=== PATIENT | female | born 1965 | race Caucasian/White ===

== ENCOUNTER → 2017-05-06 14:44 | Outpatient (CLI) | payer MEDICAID, SELFPAY ==
--- NOTE | 2017-05-06 14:49 | RAD_ITS ---
STUDY: X-RAY - LEFT KNEE REASON FOR EXAM: Female, 51 years old. Bilateral knee pain. TECHNIQUE: 5 view(s) of the knee. COMPARISON: None. FINDINGS: Normal visualized distal femur. Normal visualized proximal tibia and fibula. Normal proximal tibiofibular articulation. There is mild degenerative arthrosis of the medial femorotibial compartment. Normal lateral femorotibial compartment. Normal patellofemoral articulation. The soft tissue structures are unremarkable. RAD/Knee 4 or More Views IMPRESSION: Degenerative arthrosis. Electronically Signed: Willis Hicks MD at 15:51 EST Tel [phone], Service support ,
--- NOTE | 2017-05-06 14:49 | RAD_ITS ---
STUDY: X-RAY - RIGHT KNEE REASON FOR EXAM: Female, 51 years old. Bilateral knee pain. TECHNIQUE: 4 view(s) of the knee. COMPARISON: None. FINDINGS: Normal visualized distal femur. Normal visualized proximal tibia and fibula. Normal proximal tibiofibular articulation. There is mild degenerative arthrosis of the medial femorotibial compartment. Normal lateral femorotibial compartment. There is mild degenerative arthrosis of the patellofemoral articulation. The soft tissue structures are unremarkable. RAD/Knee 4 or More Views IMPRESSION: Degenerative arthrosis. Electronically Signed: Willis Hicks MD at 15:52 EST Tel [phone], Service support ,
== END ==
PROVIDERS: Family Provider Nurse Practitioner Family; PCP Nurse Practitioner Family
DX: M25.561 Pain in right knee (principal); M25.562 Pain in left knee
CPT/HCPCS: 73564

== ENCOUNTER 2017-05-30 11:53 | Emergency (ER) | payer MEDICAID, SELFPAY ==
[2017-05-30 11:54] VITALS: BP 205/111; PULSE 71; RESP 18; TEMP 36.5; O2SAT 98; BMI 43.5
[2017-05-30 12:01] VITALS: BP 162/101; PULSE 65; RESP 17; O2SAT 96
--- NOTE | 2017-05-30 12:01 | EKG12_ITS ---
Test Reason : CP Blood Pressure : / mmHG Vent. Rate : 061 BPM Atrial Rate : 061 BPM P-R Int : 160 ms QRS Dur : 100 ms QT Int : 448 ms P-R-T Axes : 043 -01 020 degrees QTc Int : 450 ms Normal sinus rhythm Normal ECG Confirmed by KAITLIN FERRARI ([id number]), associate editor AMERICA GUNTER ([id number] on 06/02/2017 1:31:41 PM Referred By: DIANE Confirmed By:KAITLIN FERRARI
--- NOTE | 2017-05-30 12:33 | US_ITS ---
STUDY: ABDOMINAL ULTRASOUND - RIGHT UPPER QUADRANT REASON FOR VISIT: Female, 51 years old. Right upper quadrant pain. TECHNIQUE: Ultrasound evaluation of the right upper quadrant was performed with real-time and static dawson-scale imaging. TECHNICAL QUALITY: Adequate. COMPARISON: None. FINDINGS: Liver: The liver measures 17.7 cm. There is increased echogenicity consistent with fatty infiltration. The bile ducts are within normal limits. There is hepatic color flow. The direction of portal flow is hepatopetal. There is no demonstrated mass lesion. Gallbladder: Normal distended gallbladder. The gallbladder wall measures 3 mm. There is a negative sonographic Mantilla's sign. There is no pericholecystic fluid. There are no gallstones. Common Bile Duct (C.B.D.): The common bile duct measures 4 mm. Pancreas: Normal size of the head, body and tail of the pancreas. There is normal echogenicity of the pancreas. There is no demonstrated pancreatic mass or cyst. Right Kidney: Normal size of the right kidney. The right kidney measures 11.9 x 5.3 x 4.9 cm. Normal renal cortex. The right cortex measures 1.1 cm. There is no demonstrated renal mass or cyst. There is no right hydronephrosis. US/Gallbladder IMPRESSION: Hepatic steatosis. Electronically Signed: Juaquin Webb MD at 14:08 EST , Service support ,
--- NOTE | 2017-05-30 12:34 | ED.VISSUMM ---
- ER Visit Summary Date of Service: 05/30/17 Chief Complaint: Abdominal pain History of Present Illness: The patient is a 51 F presenting with right upper quadrant abdominal pain for the past 2 hours. She has nausea with no vomiting. Denies diarrhea or constipation. Denies urinary complaints. She states occasionally the pain radiates into her chest. She has a history of hypertension and GERD. Physical Examination: Vitals are stable. Patient is afebrile. Alert no acute distress. HEENT exam is unremarkable. Neck is supple. Lungs are clear and equal bilaterally. Heart is regular rate and rhythm. Abdomen is soft right upper quadrant tenderness, no rebound or guarding Extremities are unremarkable. Skin is warm and dry. No focal neurologic deficit. Remainder of exam is unremarkable. Emergency Department Course and Treatment: She was given morphine, Zofran IV. EKG is sinus rhythm rate 61, no acute ischemic changes. CBC is unremarkable. Chemistries normal except for BUN 20, creatinine 1.09. She was given IV fluids. Liver lipase are normal. Gallbladder ultrasound shows hepatic steatosis. She was given a GI cocktail with improvement. She is advised to follow-up with her primary care physician. She is given a prescription for Prevacid. She states she was previously taking this but was switched to Zantac. She states the Prevacid worked better in the past. Advised return to ED for worsening complaints. Disposition: Discharge home Impression: Abdominal pain This note was generated with [employer] dictation software. It may contain incorrect words, spelling, and punctuation that were not noted in review of the chart prior to signing ED Disposition - Plan for ED Patient: Chief Complaint: Abd Pain Referrals: Lety Bryan RAILROAD CAR TRUCK BUILDER-C [Primary Care Provider] -
[2017-05-30 12:50] LABS: Absolute Lymphocyte Count 4.04 X10^3/ul (0.83-4.51); Absolute Neutrophil Count 4.4 X10^3/uL (2.0-7.7); Basophil# 0.03 X10^3/uL; Basophil% 0.3 % (0-1); Eosinophil# 0.12 X10^3/uL; Eosinophils% 1.3 % (0-5); Hematocrit 37.4 % (37-47); Hemoglobin 12.5 g/dl (12.0-15.0); Lymphocyte # 4.04 X10^3/ul (4.0); Lymphocyte % 44.5 % (19-41); Mean Corp Hgb Conc 33.4 g/gl (32-36); Mean Corpuscular Volume 92.8 fL (81-99); Mean Platelet Vol. 10.9 fl (6.2-12.0); Monocyte# 0.49 X10^3/uL; Monocyte% 5.4 % (0-10); Neutrophil # 4.39 X10^3/uL (2.7-7.7); Neutrophil % 48.4 % (47-70); Platelet Count 325 K/mm3 (150-450); RBC Distribution Width CV 12.7 % (11.6-14.6); RBC Distribution Width SD 42.1 fl (35.1-43.9); Red Blood Count 4.03 M/mm3 (4.2-5.4); White Blood Count 9.1 K/mm3 (4.4-11.0)
[2017-05-30 12:55] LABS: POSITIVE COUNT NO; POSITIVE DIFFERENTIAL NO; POSITIVE MORPHOLOGY NO
[2017-05-30 13:05] LABS: AST(SGOT) 22 U/L (15-37); Alanine Aminotransfer ALT/SGPT 37 U/L (13-56); Albumin, Serum 3.9 g/dL (3.2-5.0); Alkaline Phosphatase 112 U/L (45-117); BUN 20 mg/dL (7-18); BUN/Creat Ratio 18.3 RATIO (10-20); Bilirubin, Direct 0.09 mg/dL (0.00-0.30); Calcium,Total 8.8 mg/dL (8.5-10.1); Chloride 103 mmol/L (98-107); Creatinine, Serum 1.09 mg/dL (0.55-1.02); EST Glomerular Filtration Rate 56 mL/min (>60); Est Glom Filt Rate - Afr Amer 68 mL/min (>60); Globulin 3.5 g/dL (2.2-4.2); Glucose 94 mg/dL (74-106); Lipase 174 U/L (73-393); Potassium 3.8 mmol/L (3.5-5.1); Protein, Total 7.4 g/dL (6.4-8.2); Sodium Level 141 mmol/L (136-145)
[2017-05-30 13:06] LABS: Anion Gap 10 (5-15)
[2017-05-30] MEDS: Ondansetron 4 MG/2 ML Vial IV (13:07)
[2017-05-30 14:00] VITALS: BP 152/72; PULSE 59; RESP 20; O2SAT 98
[2017-05-30] MEDS: 0.9% Normal Saline 1,000 ML 999 ML IV (14:03)
--- NOTE | 2017-05-30 15:17 | ED.DEP ---
ED Disposition - Plan for ED Patient: Chief Complaint: Abd Pain Instructions: ED Abdominal Pain Unkn Cause Prescriptions: Lansoprazole [Prevacid] 15 mg PO DAILY #30 capsule Referrals: Lety Bryan RADIO ELECTRICIAN-C [Primary Care Provider] -
[2017-05-30 15:21] VITALS: BP 146/78; PULSE 58; RESP 18; O2SAT 95
== END 2017-05-30 15:33 | disposition home or self-care (01) ==
LOC: ED 12:32
PROVIDERS: Emergency Provider Emergency Medicine; Family Provider Nurse Practitioner Family; PCP Nurse Practitioner Family
DX: R10.11 Right upper quadrant pain (principal); R11.0 Nausea; K76.0 Fatty (change of) liver, not elsewhere classified; I10 Essential (primary) hypertension; K21.9 Gastro-esophageal reflux disease without esophagitis; F32.9 Major depressive disorder, single episode, unspecified; Z90.89 Acquired absence of other organs; Z79.899 Other long term (current) drug therapy
CPT/HCPCS: 76705; 80048; 80076; 83690; 85025; 93005; 96374; 96375; 99283; J7030; J7040; A4216; J2405

== ENCOUNTER → 2017-07-16 12:50 | Outpatient (CLI) | payer MEDICAID, SELFPAY ==
--- NOTE | 2017-07-16 12:55 | BI_ITS ---
MAMMOGRAPHY - UNILATERAL DIAGNOSTIC: LEFT BREAST REASON FOR EXAM: Female, 51 years old. Six-month follow-up following right stereotactic breast biopsy. PERTINENT HISTORY: Prior left stereotactic breast biopsy. TECHNIQUE: Digital unilateral breast ella (3D mammographic acquisition) in the CC and MLO projections. 2-D mediolateral oblique (MLO) and craniocaudad (CC) views of both breasts were obtained. CAD: Full Field Digital Mammography with Computer Added Detection was performed. COMPARISON: Comparison is made with prior study January 15, 2017. FINDINGS: Breast Composition: The breasts are heterogeneously dense, which may obscure small masses. There are no dominant masses or suspicious calcifications. Since prior study, the cluster microcalcification in the upper lateral portion of the left breast at the biopsy. The number of calcifications have decreased. No new mass or clustered calcifications present. No other significant abnormalities are identified. BI/DIAG MAMM W/CAD, UNILAT IMPRESSION: Status post biopsy of the calcifications in the left breast as described. One year follow-up mammogram recommended. (A) ASSESSMENT CATEGORY: BIRADS Category 2: Benign. A letter regarding these results will be sent to the patient by the facility within 30 days. Approximately 10% of breast cancers are not detected by mammography. A normal mammogram should not delay biopsy of a clinically suspicious abnormality. Electronically Signed: Willis Hicks MD at 14:56 EDT Tel [phone], Service support ,
== END ==
PROVIDERS: Family Provider Nurse Practitioner Family; PCP Nurse Practitioner Family; Visit Provider Surgery
DX: R92.8 Other abnormal and inconclusive findings on diagnostic imaging of breast (principal)
CPT/HCPCS: 77061; 77065; G0279

== ENCOUNTER 2017-11-25 09:36 | Emergency (ER) | payer MEDICAID, SELFPAY ==
[2017-11-25 09:37] VITALS: BP 208/107; PULSE 82; RESP 24; TEMP 36.1; O2SAT 98; BMI 43.9
--- NOTE | 2017-11-25 09:41 | ED.RN ---
pt pre reg. moved to room number 3. [facility] called for ekg. triage info completed after pt in room
--- NOTE | 2017-11-25 10:02 | ED.DCSUM_ITS ---
- ER Visit Summary Date of Service: 11/25/17 Chief Complaint: Abdominal pain History of Present Illness: The patient is a 52 F history of hypertension prior appendectomy. Complaining of right upper quadrant abdominal pain for the last half an hour that awoke her from sleep. Associated nausea vomiting ?1. No fever. No dysuria. Postmenopausal no longer has periods. Patient had episode like this before was evaluated and had an ultrasound was negative. She denies any abdominal trauma. Physical Examination: Middle-aged female complaining of right upper quadrant abdominal pain. Vital signs are stable and afebrile. She does not look septic or toxic. Blood pressure 208/107. HEENT exam unremarkable. Neck nontender. Lungs clear to auscultation bilaterally. Heart regular rate and rhythm no murmur. Abdomen is soft. Right upper quadrant tenderness. No Mantilla sign. Normal bowel sounds. No hernias or masses. Right lower quadrant unremarkable. No pulsatile masses. No signs of obstruction. No distention. Moving all 4 extremities. Neurovascularly intact. Neurologic exam is awake and alert with no focal motor deficits. Test Results: EKG sinus rhythm rate of 71 no acute abnormality. CBC normal. White count 8. Normal hemoglobin. BMP normal. Normal gap and creatinine. Liver enzymes normal. Lipase normal. Emergency Department Course and Treatment: Patient treated with IV morphine and Zofran. She reportedly has a Toradol allergy. Treatment Plan: Repeat exam patient doing well at 1105. Nausea resolved. Abdomen benign and nontender. I do not feel she needs any imaging at this time. She is previously had a negative ultrasound of the right upper quadrant. She will be discharged home to follow-up with the start since clinic. Disposition: Discharge Impression: Acute abdominal pain of uncertain etiology This note was generated with [employer] dictation software. It may contain incorrect words, spelling, and punctuation that were not noted in review of the chart prior to signing ED Disposition - Plan for ED Patient: Chief Complaint: Abd Pain Referrals: Lety Bryan, AUTO BODY REPAIR TECHNICIAN-C [NON-STAFF] -
[2017-11-25 10:18] LABS: Absolute Lymphocyte Count 4.11 X10^3/ul (0.83-4.51); Absolute Neutrophil Count 4.1 X10^3/uL (2.0-7.7); Basophil# 0.03 X10^3/uL; Basophil% 0.3 % (0-1); Eosinophils% 1.1 % (0-5); Hemoglobin 12.5 g/dl (12.0-15.0); Lymphocyte # 4.11 X10^3/ul (4.0); Lymphocyte % 46.5 % (19-41); Mean Corp Hgb Conc 33.8 g/gl (32-36); Mean Corpuscular Hgb 31.4 pg (27.0-32.0); Mean Platelet Vol. 10.4 fl (6.2-12.0); Monocyte% 5.7 % (0-10); Neutrophil # 4.09 X10^3/uL (2.7-7.7); Neutrophil % 46.3 % (47-70); POSITIVE COUNT NO; POSITIVE DIFFERENTIAL NO; POSITIVE MORPHOLOGY NO; Platelet Count 311 K/mm3 (150-450); RBC Distribution Width CV 12.7 % (11.6-14.6); RBC Distribution Width SD 42.1 fl (35.1-43.9); Red Blood Count 3.98 M/mm3 (4.2-5.4); White Blood Count 8.8 K/mm3 (4.4-11.0)
[2017-11-25 10:34] LABS: AST(SGOT) 29 U/L (15-37); Alanine Aminotransfer ALT/SGPT 46 U/L (13-56); Albumin, Serum 3.3 g/dL (3.2-5.0); Alkaline Phosphatase 113 U/L (45-117); Anion Gap 7 (5-15); BUN 9 mg/dL (7-18); BUN/Creat Ratio 9.6 RATIO (10-20); Bilirubin, Direct 0.12 mg/dL (0.00-0.30); Calcium,Total 8.6 mg/dL (8.5-10.1); Chloride 108 mmol/L (98-107); Creatinine, Serum 0.93 mg/dL (0.55-1.02); EST Glomerular Filtration Rate 67 mL/min (>60); Est Glom Filt Rate - Afr Amer 81 mL/min (>60); Globulin 3.8 g/dL (2.2-4.2); Glucose 102 mg/dL (74-106); Lipase 161 U/L (73-393); Potassium 3.5 mmol/L (3.5-5.1); Protein, Total 7.1 g/dL (6.4-8.2); Sodium Level 143 mmol/L (136-145)
[2017-11-25] MEDS: Ondansetron 4 MG/2 ML Vial IV (10:43)
[2017-11-25] MEDS: morphine 8 MG/ML Syringe 6 MG IV (10:43)
--- NOTE | 2017-11-25 11:06 | ED.DEP ---
ED Disposition - Plan for ED Patient: Disposition: Home or Assisted Living Chief Complaint: Abd Pain Instructions: ED Abdominal Pain Unkn Cause Prescriptions: Ondansetron [Zofran Odt] 4 mg PO Q4H PRN PRN #10 tab.rapdis PRN Reason: Nausea Referrals: Lety Bryan, CONSTRUCTION QUALITY CONTROL MANAGER-C [NON-STAFF] - 1 Week if not improving Additional Instructions: Zofran as needed for nausea.
[2017-11-25 11:19] VITALS: BP 164/94; PULSE 64; RESP 19; O2SAT 99
== END 2017-11-25 11:20 | disposition home or self-care (01) ==
PROVIDERS: Emergency Provider Emergency Medicine; Family Provider Nurse Practitioner Family; PCP Nurse Practitioner Family
DX: R10.11 Right upper quadrant pain (principal); I10 Essential (primary) hypertension; R11.2 Nausea with vomiting, unspecified; J45.909 Unspecified asthma, uncomplicated; Z78.0 Asymptomatic menopausal state; Z79.899 Other long term (current) drug therapy
CPT/HCPCS: 80048; 80076; 83690; 85025; 93005; 96374; 96375; 99285; A4216; J2405

== ENCOUNTER → 2018-02-03 14:21 | Outpatient (CLI) | payer MEDICAID, SELFPAY ==
--- NOTE | 2018-02-03 14:23 | US_ITS ---
STUDY: THYROID ULTRASOUND REASON FOR EXAM: Female, 52 years old. Hypothyroidism TECHNIQUE: Ultrasound evaluation of the thyroid was performed with real-time and static dawson-scale imaging. COMPARISON: None. FINDINGS: RIGHT LOBE: The right lobe of the thyroid gland measures 4.2 x 1.4 x 1.5 cm. There is a homogeneous echotexture. There are no demonstrated solid, cystic or complex lesions. LEFT LOBE: The left lobe of the thyroid gland measures 3.8 x 1.4 x 1.3 cm. There is a homogeneous echotexture. There is a simple 2 mm cyst. ISTHMUS: The isthmus measures 0.5 cm. The regional lymph nodes are normal. US/Thyroid IMPRESSION: Normal sized homogeneous thyroid gland with simple 2 mm cyst in the left lobe. No suspicious solid nodules or inflammation. Electronically Signed: Juaquin José MD at 15:24 EDT , Service support ,
== END ==
PROVIDERS: Family Provider Nurse Practitioner Family; PCP Nurse Practitioner Family
DX: E03.9 Hypothyroidism, unspecified (principal)
CPT/HCPCS: 76536

== ENCOUNTER → 2018-03-02 15:45 | Outpatient (CLI) | payer MEDICAID, SELFPAY ==
--- NOTE | 2018-03-02 15:46 | BI_ITS ---
MAMMOGRAPHY - BILATERAL SCREENING REASON FOR EXAM: Female, 52 years old. Routine annual screening examination. PERTINENT HISTORY: Aunts with breast cancer. TECHNIQUE: Digital bilateral breast ella (3D mammographic acquisition) in the CC and MLO projections. 2-D mediolateral oblique (MLO) and craniocaudad (CC) views of both breasts were obtained. CAD: Full Field Digital Mammography with Computer Added Detection was performed. COMPARISON: Comparison is made with prior study dated July 16, 2017 and January 15, 2017. FINDINGS: Breast Composition: The breasts are heterogeneously dense, which may obscure small masses. There are no dominant masses or suspicious calcifications. Stable small bilateral axillary lymph nodes. No other significant abnormalities are identified. There has been no significant change since the prior study. BI/SCREENING MAMM (CAD), BILAT IMPRESSION: Stable bilateral screening mammogram. Yearly follow-up mammogram recommended. (A) ASSESSMENT CATEGORY: BIRADS Category 2: Benign. A letter regarding these results will be sent to the patient by the facility within 30 days. Approximately 10% of breast cancers are not detected by mammography. A normal mammogram should not delay biopsy of a clinically suspicious abnormality. [id number] Electronically Signed: Willis Hicks MD at 8:17 EST Tel [phone], Service support ,
--- OUTSIDE RECORDS SUMMARY | 2018-04-28 08:44 | XMS RPT_ITS ---
:1965 Author Organization [facility] Care Team Providers Name Role Phone CLINIC, [facility] Attending Unavailable Ni Sharma Referring Unavailable Lety Bryan TECHNICAL BUSINESS ANALYST-C Primary Care Unavailable Lety Bryan TECHNICAL BUSINESS ANALYST-C Primary Care Unavailable Qian Rothman Attending Unavailable Louie Wen Attending Unavailable Louie Wen Referring Unavailable Lety Bryan TECHNICAL BUSINESS ANALYST-C Primary Care Unavailable Abelardo Wakefield Attending Unavailable Ni Sharma Primary Care Unavailable CLINIC, [facility] Attending Unavailable CLIN[facility], [facility] Referring Unavailable Ni Sharma Primary Care Unavailable CLIN[facility], [facility] Attending Unavailable Ni Sharma Referring Unavailable Ni Sharma Primary Care Unavailable Louie Wen Attending Unavailable Lety Bryan TECHNICAL BUSINESS ANALYST-C Referring Unavailable Lety Bryan TECHNICAL BUSINESS ANALYST-C Primary Care Unavailable PROBLEMS PROBLEMS DATE TYPE CONDITION / CODE ATTENDING STATUS SOURCE 05/06/2017 Unknown M25.561 - Pain CLINICJULIO in right knee / [facility] M25.561(ICD-10) Hospital Repository 03/12/2017 Unknown 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 / Community K63.5(ICD-10) Hospital Repository PROCEDURES PROCEDURES No Procedure Records FoundRESULTS RESULTS SCREENING MAMM (CAD), Observed: 03/02/2018 Status: F Source: LISA BILAT 3:47 PM [facility] REPOSITORY [facility] Imaging Services [address] [place] [address] SCREENING MAMM (CAD), BILAT MR#: [id number] Acct: [id number] Name: JOSUE WEINSTEIN Rep #: [id number] : 1965 F 52 From: Willis Hicks MD PCP: Ni Sharma Status: REG CLI Study: SCREENING MAMM (CAD), BILAT Date of Exam: 03/02/18 Exam# [id number] [facility] Dr[facility] - BILATERAL SCREENING REASON FOR EXAM: Female, 52 years old. Routine annual screening examination. PERTINENT HISTORY: Aunts with breast cancer. TECHNIQUE: Digital bilateral breast ella (3D mammographic acquisition) in the CC and MLO projections. 2-D mediolateral oblique (MLO) and craniocaudad (CC) views of both breasts were obtained. CAD: Full Field Digital Mammography with Computer Added Detection was performed. COMPARISON: Comparison is made with prior study dated July 16, 2017 and January 15, 2017. FINDINGS: Breast Composition: The breasts are heterogeneously dense, which may obscure small masses. There are no dominant masses or suspicious calcifications. Stable small bilateral axillary lymph nodes. No other significant abnormalities are identified. There has been no significant change since the prior study. BI/SCREENING MAMM (CAD), BILAT IMPRESSION: Stable bilateral screening mammogram. Yearly follow-up mammogram recommended. (A) ASSESSMENT CATEGORY: BIRADS Category 2: Benign. A letter regarding these results will be sent to the patient by the facility within 30 days. Approximately 10% of breast cancers are not detected by mammography. A normal mammogram should not delay biopsy of a clinically suspicious abnormality. [id number] Electronically Signed: Willis Hicks MD at 8:17 EST Tel [phone], Service support , CC: Ni SIU; [facility] Fashion Consultant: Signed THYROID Observed: 02/03/2018 Status: F Source: THAYER 2:23 PM [facility] REPOSITORY [facility] Imaging Services [address] [place] [address] Thyroid MR#: [id number] Acct: [id number] Name: JOSUE WEINSTEIN Rep #: [id number] : 1965 F 52 From: Nando José MD PCP: Ni Sharma Status: REG CLI Study: Thyroid Date of Exam: 02/03/18 Exam# [id number] [facility]ing Dr[facility] STUDY: THYROID ULTRASOUND REASON FOR EXAM: Female, 52 years old. Hypothyroidism TECHNIQUE: Ultrasound evaluation of the thyroid was performed with real-time and static dawson-scale imaging. COMPARISON: None. FINDINGS: RIGHT LOBE: The right lobe of the thyroid gland measures 4.2 x 1.4 x 1.5 cm. There is a homogeneous echotexture. There are no demonstrated solid, cystic or complex lesions. LEFT LOBE: The left lobe of the thyroid gland measures 3.8 x 1.4 x 1.3 cm. There is a homogeneous echotexture. There is a simple 2 mm cyst. ISTHMUS: The isthmus measures 0.5 cm. The regional lymph nodes are normal. US/Thyroid IMPRESSION: Normal sized homogeneous thyroid gland with simple 2 mm cyst in the left lobe. No suspicious solid nodules or inflammation. Electronically Signed: Juaquin José MD at 15:24 EDT , Service support , CC: Ni SIU; [facility] Fashion Consultant: Signed 12 LEAD ELECTROCARDIOGRAM Observed: 11/27/2017 Status: F Source: THAYER 1:43 PM [facility] REPOSITORY [facility] Cardiovascular Services [address] [place] [address] 12 Lead EKG 11/25/17 0944 MR#: [id number] Acct: [id number] Name: JOSUE WEINSTEIN Rep #: [id number] : 1965 52 From: Joel Ku MD Attending Dr: Status: DEP ER Ordering Dr: Abelardo Wakefield MD Date: 11/25/17 Location: ED Sex: F C Admitted: Test Reason : Blood Pressure : / mmHG Vent. Rate : 071 BPM Atrial Rate : 071 BPM P-R Int : 184 ms QRS Dur : 094 ms QT Int : 434 ms P-R-T Axes : 036 -14 012 degrees QTc Int : 471 ms Normal sinus rhythm Normal ECG Confirmed by JOEL KU MD ([id number]), copy editor AMERICA GUNTER ([id number]) on 11/27/2017 1:42:45 PM Referred By: JOHN Confirmed By:JOEL KU MD 11/27/17 1342 Date Joel Ku MD CC: Abelardo Wakefield MD; Ni SIU Signed EMERGENCY DEPARTMENT Observed: 11/25/2017 Status: F Source: THAYER SUMMARY 12:11 PM [facility] REPOSITORY [facility] Medical Records Department [address] [place] [address] Emergency Department Summary 11/25/17 1000 MR#: [id number] Acct: [id number] Name: JOSUE WEINSTEIN Rep #: [id number] : 1965 52 From: Abelardo Wakefield MD PCP: Ni Sharma Status: DEP ER - ER Visit Summary Date of Service: 11/25/17 Chief Complaint: Abdominal pain History of Present Illness: The patient is a 52 F history of hypertension prior appendectomy. Complaining of right upper quadrant abdominal pain for the last half an hour that awoke her from sleep. Associated nausea vomiting 1. No fever. No dysuria. Postmenopausal no longer has periods. Patient had episode like this before was evaluated and had an ultrasound was negative. She denies any abdominal trauma. Physical Examination: Middle-aged female complaining of right upper quadrant abdominal pain. Vital signs are stable and afebrile. She does not look septic or toxic. Blood pressure 208/107. HEENT exam unremarkable. Neck nontender. Lungs clear to auscultation bilaterally. Heart regular rate and rhythm no murmur. Abdomen is soft. Right upper quadrant tenderness. No Mantilla sign. Normal bowel sounds. No hernias or masses. Right lower quadrant unremarkable. No pulsatile masses. No signs of obstruction. No distention. Moving all 4 extremities. Neurovascularly intact. Neurologic exam is awake and alert with no focal motor deficits. Test Results: EKG sinus rhythm rate of 71 no acute abnormality. CBC normal. White count 8. Normal hemoglobin. BMP normal. Normal gap and creatinine. Liver enzymes normal. Lipase normal. Emergency Department Course and Treatment: Patient treated with IV morphine and Zofran. She reportedly has a Toradol allergy. Treatment Plan: Repeat exam patient doing well at 1105. Nausea resolved. Abdomen benign and nontender. I do not feel she needs any imaging at this time. She is previously had a negative ultrasound of the right upper quadrant. She will be discharged home to follow-up with the start since clinic. Disposition: Discharge Impression: Acute abdominal pain of uncertain etiology This note was generated with Eight19 dictation software. It may contain incorrect words, spelling, and punctuation that were not noted in review of the chart prior to signing ED Disposition - Plan for ED Patient: Chief Complaint: Abd Pain Referrals: Lety Bryan, TECHNICAL BUSINESS ANALYST-C [NON-STAFF] - What to do if you have Problems For any increased pain, shortness of breath, bleeding, nausea or vomiting, chest pain, or any unexpected problems, contact your Primary Care Provider. Call [facility] ([phone]) or report to the closest Emergency Room. Call 911 if necessary. 11/25/17 1211 <Electronically signed by Abelardo Wakefield MD> Date Abelardo Wakefield MD Cosigner Signature (If Indicated): Date CC: Ni SIU DISCHARGE INSTRUCTION Observed: 11/25/2017 Status: F Source: LISA 12:11 PM [facility] REPOSITORY [facility] Medical Records Department [address] [place] [address] Discharge Instruction 11/25/17 1106 MR#: [id number] Acct: [id number] Name: JOSUE WEINSTEIN Rep #: [id number] : 1965 52 From: Abelardo Wakefield MD PCP: Ni Sharma Status: [facility] ER ED Disposition - Plan for ED Patient: Disposition: Home or Assisted Living Chief Complaint: Abd Pain Instructions: ED Abdominal Pain Unkn Cause Prescriptions: Ondansetron [Zofran Odt] 4 mg PO Q4H PRN PRN #10 tab.rapdis PRN Reason: Nausea Referrals: Lety Bryan TECHNICAL BUSINESS ANALYST-C [NON-STAFF] - 1 Week if not improving Additional Instructions: Zofran as needed for nausea. What to do if you have Problems For any increased pain, shortness of breath, bleeding, nausea or vomiting, chest pain, or any unexpected problems, contact your Primary Care Provider. Call [facility] ([phone]) or report to the closest Emergency Room. Call 911 if necessary. 11/25/17 1211 <Electronically signed by Abelardo Wakefield MD> Date Abelardo Wakefield MD Cosigner Signature (If Indicated): Date CC: Ni SIU CBC W/DIFF, AUTOMATED Collected: 11/25/2017 Status: F Source: LISA 10:10 AM [facility] REPOSITORY TYPE CODE TESTS RESULT OUT OF RANGE REFERENCE UNITS LAB L100.1000 4.4-11.0 K/mm3 Normal WBC 8.8 LAB L100.1200 4.2-5.4 M/mm3 Low RBC 3.98 LAB L100.1300 12.0-15.0 g/dl Normal HGB 12.5 LAB L100.1400 37-47 % Normal HCT 37.0 LAB L100.1500 81-99 fL Normal MCV 93.0 LAB L100.1600 27.0-32.0 pg Normal MCH 31.4 LAB L100.1700 32-36 g/gl Normal MCHC 33.8 LAB L100.1810 11.6-14.6 % Normal RDW CV 12.7 LAB L100.1820 35.1-43.9 fl Normal RDW SD 42.1 LAB L100.1900 150-450 K/mm3 Normal PLT 311 LAB L100.2000 6.2-12.0 fl Normal MPV 10.4 LAB L100.2100 47-70 % Low NEUT% 46.3 LAB L100.2200 19-41 % High LY% 46.5 LAB L100.2300 0-10 % Normal MONO% 5.7 LAB L100.2400 0-5 % Normal EO% 1.1 LAB L100.2500 0-1 % Normal BASO% 0.3 LAB L100.2550 0.0-0.9 % Normal IM GRAN % 0.100 Result Comment: IG% - Immature Granulocytes (promyelocytes, myelocytes and metamyelocytes) > 1% indicates that a LEFT SHIFT is Present. LAB L100.2620 2.0-7.7 X10 3/uL Normal Absolute Neut 4.1 LAB L100.2720 0.83-4.51 X10 3/ul Normal Absolute Lymph 4.11 Performed By: #### L100.0100 #### [facility] [address] [place], [address] BASIC METABOLIC Collected: 11/25/2017 Status: F Source: LISA PROFILE (BMP) 10:10 AM [facility] REPOSITORY TYPE CODE TESTS RESULT OUT OF RANGE REFERENCE UNITS LAB L501.0100 74-106 mg/dL Normal GLU 102 Result Comment: Fasting Glucose result from 100 to 125 mg/dL suggests IMPAIRED HOMEOSTASIS per A.D.A. criteria. Please note revised GLUCOSE reference range effective 2017. LAB L501.1000 7-18 mg/dL Normal BUN 9 LAB L501.1100 0.55-1.02 mg/dL Normal CREAT,SERUM 0.93 Result Comment: The validity of the calculated GFR AND GFRAA in patients over 70 years has not been determined. Clinical correlation is essential. LAB L501.1110 >60 mL/min Normal EST GFR 67 Result Comment: Non- GFR Calc LAB L501.1115 >60 mL/min Normal EST GFR - AA 81 Result Comment: GFR Calc LAB L501.1255 ml/min Normal Estimated CRCL 67.00 LAB L501.1300 10-20 RATIO Low BUN/CRE 9.6 LAB L501.2200 8.5-10 mg/dL Normal .1 CA 8.6 LAB L501.5300 136-14 mmol/L Normal 5 NA 143 LAB L501.5600 3.5-5. mmol/L Normal 1 K 3.5 LAB L501.5900 98-107 mmol/L High CL 108 LAB L501.6100 21.0-3 mmol/L Normal 2.0 CO2 28.0 LAB L501.6200 5-15 Normal GAP 7 Performed By: #### L500.2500, L500.3400, L501.2450 #### [facility] [address] [place], [place], [address] LIVER PROFILE Collected: 11/25/2017 Status: F Source: THAYER 10:10 AM [facility] REPOSITORY TYPE CODE TESTS RESULT OUT OF RANGE REFERENCE UNITS LAB L501.1500 6.4-8.2 g/dL Normal T PROT 7.1 LAB L501.1800 3.2-5.0 g/dL Normal ALB 3.3 LAB L501.1950 2.2-4.2 g/dL Normal GLOB 3.8 LAB L501.4100 15-37 U/L Normal AST 29 LAB L501.4305 45-117 U/L Normal ALK P 113 LAB L501.4405 13-56 U/L Normal ALT 46 LAB L501.4600 0.20-1.00 mg/dL Normal T BILI 0.30 LAB L501.4700 0.00-0.30 mg/dL Normal D BILI 0.12 Performed By: #### L500.2500, L500.3400, L501.2450 #### [facility] [address] [place], [address] LIPASE Collected: 11/25/2017 Status: F Source: THAYER 10:10 AM [facility] REPOSITORY TYPE CODE TESTS RESULT OUT OF RANGE REFERENCE UNITS LAB L501.2450 73-393 U/L Normal LIPASE 161 Performed By: #### L500.2500, L500.3400, L501.2450 #### [facility] [address] [place], [address] DIAG MAMM W/CAD, Observed: 07/16/2017 Status: F Source: THAYER UNIL 12:58 PM [facility] REPOSITORY [facility] Imaging Services [address] [place] [address] DIAG MAMM W/CAD, UNILAT MR#: [id number] Acct: [id number] Name: JOSUE WEINSTEIN Rep #: [id number] : 1965 F 51 From: Willis Hicks MD PCP: Lety Bryan TECHNICAL BUSINESS ANALYSTYobanyC Status: REG CLI Study: DIAG MAMM W/CAD, UNILAT Date of Exam: 07/16/17 Exam# [id number] Ordering Dr: Louie Wen MD MAMMOGRAPHY - UNILATERAL DIAGNOSTIC: LEFT BREAST REASON FOR EXAM: Female, 51 years old. Six-month follow- up following right stereotactic breast biopsy. PERTINENT HISTORY: Prior left stereotactic breast biopsy. TECHNIQUE: Digital unilateral breast ella (3D mammographic acquisition) in the CC and MLO projections. 2-D mediolateral oblique (MLO) and craniocaudad (CC) views of both breasts were obtained. CAD: Full Field Digital Mammography with Computer Added Detection was performed. COMPARISON: Comparison is made with prior study January 15, 2017. FINDINGS: Breast Composition: The breasts are heterogeneously dense, which may obscure small masses. There are no dominant masses or suspicious calcifications. Since prior study, the cluster microcalcification in the upper lateral portion of the left breast at the biopsy. The number of calcifications have decreased. No new mass or clustered calcifications present. No other significant abnormalities are identified. BI/DIAG MAMM W/CAD, UNILAT IMPRESSION: Status post biopsy of the calcifications in the left breast as described. One year follow-up mammogram recommended. (A) ASSESSMENT CATEGORY: BIRADS Category 2: Benign. A letter regarding these results will be sent to the patient by the facility within 30 days. Approximately 10% of breast cancers are not detected by mammography. A normal mammogram should not delay biopsy of a clinically suspicious abnormality. Electronically Signed: Willis Hicks MD at 14:56 EDT Tel [phone], Service support , CC: Lety Bryan; Louie Wen MD Fashion Consultant: Signed 12 LEAD ELECTROCARDIOGRAM Observed: 06/02/2017 Status: F Source: THAYER 1:31 PM [facility] REPOSITORY [facility] Cardiovascular Services [address] [place] [address] 12 Lead EKG 05/30/17 1201 MR#: [id number] Acct: [id number] Name: JOSUE WEINSTEIN Rep #: [id number] : 1965 51 From: Louie Ferrari MD Attending Dr: Status: [facility] ER Ordering Dr: Qian Rothman MD Date: 05/30/17 Location: ED Sex: F C Admitted: Test Reason : CP Blood Pressure : / mmHG Vent. Rate : 061 BPM Atrial Rate : 061 BPM P-R Int : 160 ms QRS Dur : 100 ms QT Int : 448 ms P-R-T Axes : 043 -01 020 degrees QTc Int : 450 ms Normal sinus rhythm Normal ECG Confirmed by LOUIE FERRARI ([id number]), copy editor AMERICA GUNTER ([id number]) on 06/02/2017 1:31:41 PM Referred By: DIANE Confirmed By:LOUIE FERRARI 06/02/17 1331 Date Louie Ferrari MD CC: Lety Bryan; Qian Rothman MD Signed DISCHARGE INSTRUCTION Observed: 05/30/2017 Status: F Source: THAYER 3:19 PM [facility] REPOSITORY [facility] Medical Records Department [address] [place] [address] Discharge Instruction 05/30/17 1517 MR#: [id number] Acct: [id number] Name: JOSUE WEINSTEIN Rep #: [id number] : 1965 51 From: Qian Rothman MD PCP: Lety Bryan Status: REG ER ED Disposition - Plan for ED Patient: Chief Complaint: Abd Pain Instructions: ED Abdominal Pain Unkn Cause Prescriptions: Lansoprazole [Prevacid] 15 mg PO DAILY #30 capsule Referrals: Lety Bryan NP-C [Primary Care Provider] - What to do if you have Problems For any increased pain, shortness of breath, bleeding, nausea or vomiting, chest pain, or any unexpected problems, contact your Primary Care Provider. Call [facility] ([phone]) or report to the closest Emergency Room. Call 911 if necessary. 05/30/17 9609 <Electronically signed by Qian Rothman MD> Date Qian Rothman MD Cosigner Signature (If Indicated): Date CC: Lety Bryan EMERGENCY DEPARTMENT Observed: 05/30/2017 Status: F Source: THAYER SUMMARY 3:17 PM [facility] REPOSITORY [facility] Medical Records Department [address] [place] [address] Emergency Department Summary 05/30/17 1234 MR#: [id number] Acct: [id number] Name: JOSUE WEINSTEIN Rep #: [id number] : 1965 51 From: Qian Rothman MD PCP: Lety Bryan Status: REG ER - ER Visit Summary Date of Service: 05/30/17 Chief Complaint: Abdominal pain History of Present Illness: The patient is a 51 F presenting with right upper quadrant abdominal pain for the past 2 hours. She has nausea with no vomiting. Denies diarrhea or constipation. Denies urinary complaints. She states occasionally the pain radiates into her chest. She has a history of hypertension and GERD. Physical Examination: Vitals are stable. Patient is afebrile. Alert no acute distress. HEENT exam is unremarkable. Neck is supple. Lungs are clear and equal bilaterally. Heart is regular rate and rhythm. Abdomen is soft right upper quadrant tenderness, no rebound or guarding Extremities are unremarkable. Skin is warm and dry. No focal neurologic deficit. Remainder of exam is unremarkable. Emergency Department Course and Treatment: She was given morphine, Zofran IV. EKG is sinus rhythm rate 61, no acute ischemic changes. CBC is unremarkable. Chemistries normal except for BUN 20, creatinine 1.09. She was given IV fluids. Liver lipase are normal. Gallbladder ultrasound shows hepatic steatosis. She was given a GI cocktail with improvement. She is advised to follow-up with her primary care physician. She is given a prescription for Prevacid. She states she was previously taking this but was switched to Zantac. She states the Prevacid worked better in the past. Advised return to ED for worsening complaints. Disposition: Discharge home Impression: Abdominal pain This note was generated with Eight19 dictation software. It may contain incorrect words, spelling, and punctuation that were not noted in review of the chart prior to signing ED Disposition - Plan for ED Patient: Chief Complaint: Abd Pain Referrals: Lety Bryan NP-C [Primary Care Provider] - What to do if you have Problems For any increased pain, shortness of breath, bleeding, nausea or vomiting, chest pain, or any unexpected problems, contact your Primary Care Provider. Call [facility] ([phone]) or report to the closest Emergency Room. Call 911 if necessary. 05/30/17 1517 <Electronically signed by Qian Rothman MD> Date Qian Rothman MD Cosigner Signature (If Indicated): Date CC: Lety Bryan GALLBLADDER Observed: 05/30/2017 Status: F Source: THAYER 12:34 PM [facility] REPOSITORY [facility] Imaging Services [address] [place] [address] Gallbladder MR#: [id number] Acct: [id number] Name: JOSUE WEINSTEIN Rep #: [id number] : 1965 F 51 From: Nando Webb MD PCP: Lety Bryan Status: REG ER Study: Gallbladder Date of Exam: 05/30/17 Exam# [id number] Ordering Dr: Qian Rothman MD STUDY: ABDOMINAL ULTRASOUND - RIGHT UPPER QUADRANT REASON FOR VISIT: Female, 51 years old. Right upper quadrant pain. TECHNIQUE: Ultrasound evaluation of the right upper quadrant was performed with real-time and static dawson-scale imaging. TECHNICAL QUALITY: Adequate. COMPARISON: None. FINDINGS: Liver: The liver measures 17.7 cm. There is increased echogenicity consistent with fatty infiltration. The bile ducts are within normal limits. There is hepatic color flow. The direction of portal flow is hepatopetal. There is no demonstrated mass lesion. Gallbladder: Normal distended gallbladder. The gallbladder wall measures 3 mm. There is a negative sonographic Mantilla's sign. There is no pericholecystic fluid. There are no gallstones. Common Bile Duct (C.B.D.): The common bile duct measures 4 mm. Pancreas: Normal size of the head, body and tail of the pancreas. There is normal echogenicity of the pancreas. There is no demonstrated pancreatic mass or cyst. Right Kidney: Normal size of the right kidney. The right kidney measures 11.9 x 5.3 x 4.9 cm. Normal renal cortex. The right cortex measures 1.1 cm. There is no demonstrated renal mass or cyst. There is no right hydronephrosis. US/Gallbladder IMPRESSION: Hepatic steatosis. Electronically Signed: Juaquni Webb MD at 14:08 EST , Service support , CC: Lety Bryan; Qian Rothman MD Fashion Consultant: Signed CBC W/DIFF, AUTOMATED Collected: 05/30/2017 Status: F Source: LISA 12:10 PM [facility] REPOSITORY TYPE CODE TESTS RESULT OUT OF RANGE REFERENCE UNITS LAB L100.1000 4.4-11.0 K/mm3 Normal WBC 9.1 LAB L100.1200 4.2-5.4 M/mm3 Low RBC 4.03 LAB L100.1300 12.0-15.0 g/dl Normal HGB 12.5 LAB L100.1400 37-47 % Normal HCT 37.4 LAB L100.1500 81-99 fL Normal MCV 92.8 LAB L100.1600 27.0-32.0 pg Normal MCH 31.0 LAB L100.1700 32-36 g/gl Normal MCHC 33.4 LAB L100.1810 11.6-14.6 % Normal RDW CV 12.7 LAB L100.1820 35.1-43.9 fl Normal RDW SD 42.1 LAB L100.1900 150-450 K/mm3 Normal PLT 325 LAB L100.2000 6.2-12.0 fl Normal MPV 10.9 LAB L100.2100 47-70 % Normal NEUT% 48.4 LAB L100.2200 19-41 % High LY% 44.5 LAB L100.2300 0-10 % Normal MONO% 5.4 LAB L100.2400 0-5 % Normal EO% 1.3 LAB L100.2500 0-1 % Normal BASO% 0.3 LAB L100.2550 0.0-0.9 % Normal IM GRAN % 0.100 Result Comment: IG% - Immature Granulocytes (promyelocytes, myelocytes and metamyelocytes) > 1% indicates that a LEFT SHIFT is Present. LAB L100.2620 2.0-7.7 X10 3/uL Normal Absolute Neut 4.4 LAB L100.2720 0.83-4.51 X10 3/ul Normal Absolute Lymph 4.04 Performed By: #### L100.0100 #### [facility] [address] [place], [address] BASIC METABOLIC Collected: 05/30/2017 Status: F Source: THAYER PROFILE ([facility]) 12:10 PM [facility] REPOSITORY TYPE CODE TESTS RESULT OUT OF RANGE REFERENCE UNITS LAB L501.0100 74-106 mg/dL Normal GLU 94 Result Comment: Please note revised GLUCOSE reference range effective 2017. LAB L501.1000 7-18 mg/dL High BUN 20 LAB L501.1100 0.55-1.02 mg/dL High CREAT,SERUM 1.09 Result Comment: The validity of the calculated GFR AND GFRAA in patients over 70 years has not been determined. Clinical correlation is essential. LAB L501.1110 >60 mL/min Low EST GFR 56 Result Comment: Non- GFR Calc LAB L501.1115 >60 mL/min Normal EST GFR - AA 68 Result Comment: GFR Calc LAB L501.1255 ml/min Normal Estimated CRCL 57.80 LAB L501.1300 10-20 RATIO Normal BUN/CRE 18.3 LAB L501.2200 8.5-10 mg/dL Normal .1 CA 8.8 LAB L501.5300 136-14 mmol/L Normal 5 NA 141 LAB L501.5600 3.5-5. mmol/L Normal 1 K 3.8 LAB L501.5900 98-107 mmol/L Normal CL 103 LAB L501.6100 21.0-3 mmol/L Normal 2.0 CO2 28.0 LAB L501.6200 5-15 Normal GAP 10 Performed By: #### L500.2500, L500.3400, L501.2450 #### [facility] Laboratory [address] [place], [place], [id number] LIVER PROFILE Collected: 05/30/2017 Status: F Source: THAYER 12:10 PM [facility] REPOSITORY TYPE CODE TESTS RESULT OUT OF RANGE REFERENCE UNITS LAB L501.1500 6.4-8.2 g/dL Normal T PROT 7.4 LAB L501.1800 3.2-5.0 g/dL Normal ALB 3.9 LAB L501.1950 2.2-4.2 g/dL Normal GLOB 3.5 LAB L501.4100 15-37 U/L Normal AST 22 LAB L501.4305 45-117 U/L Normal ALK P 112 LAB L501.4405 13-56 U/L Normal ALT 37 Result Comment: Please note revised ALT reference range effective 2017. LAB L501.4600 0.20-1.00 mg/dL Normal T BILI 0.30 LAB L501.4700 0.00-0.30 mg/dL Normal D BILI 0.09 Performed By: #### L500.2500, L500.3400, L501.2450 #### [facility] [address] [facility] [place], [address] LIPASE Collected: 05/30/2017 Status: F Source: THAYER 12:10 PM [facility] REPOSITORY TYPE CODE TESTS RESULT OUT OF RANGE REFERENCE UNITS LAB L501.2450 73-393 U/L Normal LIPASE 174 Performed By: #### L500.2500, L500.3400, L501.2450 #### [facility] [address] [place], [address] SURGERY VISIT REPORT Observed: 05/19/2017 Status: F Source: THAYER 11:12 AM [facility] REPOSITORY [facility] [address] [place] [address] OFFICE VISIT Date of Service: 03/12/17 MR#: [id number] Acct: [id number] Name: JOSUE WEINSTEIN Rep #: [id number] : 1965 Provider: Louie Wen MD Age/Sex: 51/F Location: [facility] Status: Signed Intake Intake Visit Reasons: f/u c-scope 03/04 DP Radio Assembler Required: No Is patient in pain?: No Allergies ketorolac tromethamine [From Toradol] Allergy (Verified 03/12/17 14:00) Rash lisinopril Allergy (Verified 03/12/17 14:00) Rash Medications Cholecalciferol (Vitamin D3) [Vitamin D3] 5,000 unit PO DAILY 06/10/13 [History Confirmed 03/12/17] Hydrochlorothiazide 12.5 mg PO DAILY 06/10/13 [History Confirmed 12/01/16] Multivitamins,Therapeutic [Multivitamin] 1 tab PO DAILY 06/10/13 [History Confirmed 03/12/17] Cetirizine HCl [Zyrtec] 10 mg PO DAILY #14 tab.rapdis 12/01/16 [Rx Confirmed 03/12/17] PredniSONE [Prednisone] 60 mg PO DAILY #15 tablet 12/01/16 [Rx] PFSH Surgical History Colonoscopy planned (Acute 03/04/17) History of appendectomy (Acute) Social History Smoking Status: Never smoker HPI HPI HPI: JOSUE WEINSTEIN, is a 51 F who presents to the office today for follow-up for a colonoscopy which was completed at [facility] on 03/04/2017. Patient was found to have a tubular adenoma of the descending colon as well as another hyperplastic polyp of the descending colon. She was also noted to have a few internal hemorrhoids. The patient has been moving her bowels normally and has not noticed any blood. Exam GI Other: Patient's abdomen is soft and nontender there is no rebound guarding or peritoneal signs Assessment AND Plan Problems 1. Colon polyp K63.5 Plan Patient will need to have another colonoscopy in 3 years. She can follow-up with me on an as-needed basis. 05/19/17 1112 <Electronically signed by Louie Wen MD> Date Louie Wen MD Cosigner Signature: Date (if applicable) CC: Lety Bryan KNEE 4 OR MORE Observed: 05/06/2017 Status: F Source: THAYER VIEWS 2:50 PM [facility] REPOSITORY [facility] Imaging Services [address] [place] [address] Knee 4 or More Views MR#: [id number] Acct: [id number] Name: CORINNAJOSUE M Rep #: [id number] : 1965 F 51 From: Willis Hicks MD PCP: Lety Bryan Status: REG CLI Study: Knee 4 or More Views Date of Exam: 05/06/17 Exam# [id number] Ordering Dr: Julio Carroll STUDY: X-RAY - LEFT KNEE REASON FOR EXAM: Female, 51 years old. Bilateral knee pain. TECHNIQUE: 5 view(s) of the knee. COMPARISON: None. FINDINGS: Normal visualized distal femur. Normal visualized proximal tibia and fibula. Normal proximal tibiofibular articulation. There is mild degenerative arthrosis of the medial femorotibial compartment. Normal lateral femorotibial compartment. Normal patellofemoral articulation. The soft tissue structures are unremarkable. RAD/Knee 4 or More Views IMPRESSION: Degenerative arthrosis. Electronically Signed: Willis Hicks MD at 15:51 EST Tel [phone], Service support , CC: Lety Bryan; JULIO ROSADO [facility] Fashion Consultant: Signed KNEE 4 OR MORE Observed: 05/06/2017 Status: F Source: THAYER VIEWS 2:50 PM [facility] REPOSITORY [facility] Imaging Services [facility] [place] [address] Knee 4 or More Views MR#: [id number] Acct: [id number] Name: JOSUE WEINSTEIN Rep #: [id number] : 1965 F 51 From: Willis Hicks MD PCP: Lety Bryan Status: REG CLI Study: Knee 4 or More Views Date of Exam: 05/06/17 Exam# [id number] [facility]ing Dr[facility] STUDY: X-RAY - RIGHT KNEE REASON FOR EXAM: Female, 51 years old. Bilateral knee pain. TECHNIQUE: 4 view(s) of the knee. COMPARISON: None. FINDINGS: Normal visualized distal femur. Normal visualized proximal tibia and fibula. Normal proximal tibiofibular articulation. There is mild degenerative arthrosis of the medial femorotibial compartment. Normal lateral femorotibial compartment. There is mild degenerative arthrosis of the patellofemoral articulation. The soft tissue structures are unremarkable. RAD/Knee 4 or More Views IMPRESSION: Degenerative arthrosis. Electronically Signed: Willis Hicks MD at 15:52 EST Tel [phone], Service support , CC: Lety Bryan; JULIO ROSADO [facility] Fashion Consultant: Signed ALLERGIES ALLERGIES DATE TYPE / CODE NAME / CODE REACTION SEVERITY SOURCE 11/25/2017 Drug ketorolac Rash Unknown [facility] Allergy/416 tromethamine/F00 Hospital 371373(SNOM 0047234(RXNORM) Repository ED CT) 11/25/2017 Drug lisinopril/F0060 Rash Unknown [facility] Allergy/416 67974(RXNORM) Hospital 703171(SNOM Repository ED CT) ENCOUNTERS ENCOUNTERS ADMIT/DISCHARGE ACCOUNT ADMITTING ENCOUNTER LOCATION SOURCE NUMBER CLASS 03/02/2018 [id number] Ambulatory Ilsa Lisa 7 [facility] ing:OPBI Repository 02/03/2018 [id number] Ambulatory Noble Noble 6 [facility] ing:US Repository 11/25/2017/ [id number] Emergency Noble Noble 8 6 [facility] ing:ED Repository 07/16/2017 [id number] Ambulatory Noble Lisa 4 [facility] ing:OPBI Repository 05/30/2017/ [id number] Emergency Lisa Lisa 8 6 [facility] ing:ED Repository 05/06/2017 [id number] Ambulatory Lisa Noble 5 [facility] ing:RAD Repository 03/12/2017/ [id number] Ambulatory BMSBuilding:B Noble 7 1 [facility] Repository PAYERS PAYERS ENCOUNTER GUARANTOR PAYER SUBSCRIBER SOURCE 03/02/2018 LISA Flower Primary JOSUE M Noble [id number] Insurance[facility] Number: [id number] [id number] Repository [address]Awl: [phone]) Date:2018-02-08 O [phone] () [address]ATTN: [place] [address]NT: 03/02/2018 Secondary NOT GIVENUNK Lisa Insurance:SELF PAY [facility] Number: Effective Repository Date:2018-02-08 02/03/2018 LISA Flower Primary JOSUE Gonzalez [id number] Insurance:CARESOURCEP WILSONDOB: [facility] Number: [id number] [id number] Repository [address]Kte: ([phone]) Date:2018-01-26P O [phone] () [address]ATTN: [place] [address]XY: 02/03/2018 Secondary NOT GIVENUNK Noble Insurance:SELF PAY [facility] Number: Effective Repository Date:2018-01-26 11/25/2017 Lisa Flower Primary JOSUE Kooster [id number] Insurance:CARESOURCEP WILSONDOB: [facility] Number: [id number] [id number] Repository [address]Yjz: ([phone]) Date:2017-11-25P O [phone] () [address]ATTN: [place] [address]IR: 11/25/2017 Secondary NOT GIVENUNK Noble Insurance:SELF PAY [facility] Number: Effective Repository Date:2017-11-25 07/16/2017 Lisa Flower Primary JOSUE Escalante Noble [id number] Insurance:CARESOURCEP WILSONDOB: [facility] Number: [id number] [id number] Repository [address]Got: (330) Date:2017-04-15P O [phone] () [address]ATTN: [place] [address]ZE: 07/16/2017 Secondary NOT GIVENUNK Lisa Insurance:SELF PAY [facility] Number: Effective Repository Date:2017-04-15 05/30/2017 Lisa Flower Primary JOSUE Escalante Lisa [id number] Insurance:CARESOURCEP WILSONDOB: [facility] Number: [id number] [id number] Repository [address]Fus: ([phone]) Date:2017-05-30P O [phone] (HP) [address]ATTN: [place] [address]JY: 05/30/2017 Secondary NOT GIVENUNK Lisa Insurance:SELF PAY [facility] Number: Effective Repository Date:2017-05-30 05/06/2017 Lisa Flower Primary JOSUE Boris Gonzalez [id number] Insurance:CARESOURCEP WILSONDOB: [facility] Number: [id number] [id number] Repository [address]Fwp: ([phone]) Date:2017-05-06 O [phone] (HP) [address]ATTN: [place] [address]KC: 05/06/2017 Secondary NOT GIVENUNK Lisa Insurance:SELF PAY [facility] Number: Effective Repository Date:2017-05-06 03/12/2017 Lisa Flower Primary JOSUE Boris Noble [id number] Insurance:CARESOURCEP WILSONDOB: [facility] Number: [id number] [id number] Repository [address]Njx: ([phone]) Date:2017-03-07P O [phone] (HP) [address]ATTN: [place] [address]NY: 03/12/2017 Secondary NOT GIVENUNK Noble Insurance:SELF PAY [facility] Number: Effective Repository Date:2017-03-07
== END ==
PROVIDERS: Family Provider Nurse Practitioner Family; PCP Nurse Practitioner Family; Referring Provider Nurse Practitioner Family
DX: Z12.31 Encounter for screening mammogram for malignant neoplasm of breast (principal)
CPT/HCPCS: 77063; 77067

== ENCOUNTER 2018-03-31 17:00 | Emergency (ER) | payer MEDICAID, SELFPAY ==
[2018-03-31 17:02] VITALS: BP 197/96; PULSE 77; RESP 19; TEMP 36.1; O2SAT 96; BMI 45.1
--- NOTE | 2018-03-31 17:56 | ED.VISSUMM ---
- ER Visit Summary Date of Service: 03/31/18 Chief Complaint: Left posterior lateral neck pain radiating down her left arm with tingling in her left thumb index and long finger. History of Present Illness: The patient is a 52 F past medical history depression, hypertension and hypothyroidism. Patient never had any neck surgery. Denies any neck injury. For the last 4 days she has had gradual onset of left posterior lateral neck pain. With radiation of pain down her left arm primarily on the radial side with intermittent tingling to her left thumb index and ring finger. No prior history. No prior neck surgery. Physical Examination: Well-appearing middle-age female. Vital signs are stable afebrile. H EENT exam unremarkable. No facial droop. Neck her tenderness is over the left trapezius. With soft tissue tenderness consistent with muscle spasm. C-spine itself is nontender. She has normal range of motion of her neck. Lungs clear to auscultation bilaterally. Heart regular rate and rhythm no murmur. Abdomen soft nontender. Extremities moves all 4. She has 5 out of 5 hob mill operator strength on the right 4 out of 5 on the left she is right-hand dominant. Subjectively she has decreased sensation on the left thumb index and ring finger. She has full flexion-extension of the left hand. Dorsi plantar flexion of the left wrist elbow and range of motion of the left shoulder. There is no muscular atrophy. She has equal radial pulses. No swelling. No tenderness in the arm. Neurologically she is awake and alert with no focal deficits other than 4-5 strength on the left hand versus 5 out of 5 on the right. Test Results: None Emergency Department Course and Treatment: Patient's exam and history are consistent with left trapezius spasm with a pinched nerve. I did explain the patient is could also be a cervical disc if not improving. Treatment Plan: Should be written for either Valium or Skelaxin depending on which her insurance will cover. Also Motrin for pain and inflammation. Follow-up with a nurse practitioner at the [facility] clinic for further evaluation if not improving she may need a cervical MRI. Disposition: Discharge Impression: Left lateral neck pain with radiculopathy secondary to trapezius muscle spasm with pinched nerve This note was generated with [employer] dictation software. It may contain incorrect words, spelling, and punctuation that were not noted in review of the chart prior to signing ED Disposition - Plan for ED Patient: Chief Complaint: Upper Extremity Injury Referrals: Ni Williamson, SHAKIR-C [Primary Care Provider] -
--- NOTE | 2018-03-31 17:59 | ED.DCSUM_ITS ---
- ER Visit Summary Date of Service: 03/31/18 Chief Complaint: Left posterior lateral neck pain radiating down her left arm with tingling in her left thumb index and long finger. History of Present Illness: The patient is a 52 F past medical history depression, hypertension and hypothyroidism. Patient never had any neck surgery. Denies any neck injury. For the last 4 days she has had gradual onset of left posterior lateral neck pain. With radiation of pain down her left arm primarily on the radial side with intermittent tingling to her left thumb index and ring finger. No prior history. No prior neck surgery. Physical Examination: Well-appearing middle-age female. Vital signs are stable afebrile. H EENT exam unremarkable. No facial droop. Neck her tenderness is over the left trapezius. With soft tissue tenderness consistent with muscle spasm. C-spine itself is nontender. She has normal range of motion of her neck. Lungs clear to auscultation bilaterally. Heart regular rate and rhythm no murmur. Abdomen soft nontender. Extremities moves all 4. She has 5 out of 5 customer professional strength on the right 4 out of 5 on the left she is right-hand dominant. Subjectively she has decreased sensation on the left thumb index and ring finger. She has full flexion-extension of the left hand. Dorsi plantar flexion of the left wrist elbow and range of motion of the left shoulder. There is no muscular atrophy. She has equal radial pulses. No swelling. No tenderness in the arm. Neurologically she is awake and alert with no focal deficits other than 4-5 strength on the left hand versus 5 out of 5 on the right. Test Results: None Emergency Department Course and Treatment: Patient's exam and history are consistent with left trapezius spasm with a pinched nerve. I did explain the patient is could also be a cervical disc if not improving. Treatment Plan: Should be written for either Valium or Skelaxin depending on which her insurance will cover. Also Motrin for pain and inflammation. Follow- up with a nurse practitioner at the [facility] clinic for further evaluation if not improving she may need a cervical MRI. Disposition: Discharge Impression: Left lateral neck pain with radiculopathy secondary to trapezius muscle spasm with pinched nerve This note was generated with [employer] dictation software. It may contain incorrect words, spelling, and punctuation that were not noted in review of the chart prior to signing ED Disposition - Plan for ED Patient: Chief Complaint: Upper Extremity Injury Referrals: Ni Williamson, SHAKIR-C [Primary Care Provider] -
--- NOTE | 2018-03-31 18:01 | DCINST.ED_ITS ---
ED Disposition - Plan for ED Patient: Disposition: Home or Assisted Living Chief Complaint: Upper Extremity Injury Instructions: ED Spasm Muscle Prescriptions: Diazepam [Valium] 5 mg PO Q6H PRN PRN #14 tab PRN Reason: Muscle Spasm Metaxalone [Skelaxin] 800 mg PO 4X/DAY #30 tab Referrals: Ni Williamson NP-C [Primary Care Provider] - 1 Week if not improving Additional Instructions: Motrin 600 mg 3-4 times a day for pain and inflammation. Skelaxin or Valium not both 1 of the other for muscle spasms in her left trapezius. Hot shower, warm bath and massage to left trapezius muscle. [facility] If not improving this may be secondary to a disc in your neck and would need an MRI for evaluation.
[2018-03-31] MEDS: diazePAM 5 MG Tablet 10 MG PO (18:12)
[2018-03-31 18:14] VITALS: PULSE 69; RESP 17; O2SAT 98
== END 2018-03-31 18:15 | disposition home or self-care (01) ==
LOC: ED 18:06
PROVIDERS: Emergency Provider Emergency Medicine; Referring Provider Nurse Practitioner Family
DX: M54.2 Cervicalgia (principal); M54.10 Radiculopathy, site unspecified; M62.838 Other muscle spasm; F32.9 Major depressive disorder, single episode, unspecified; I10 Essential (primary) hypertension; E03.9 Hypothyroidism, unspecified; Z79.899 Other long term (current) drug therapy
CPT/HCPCS: 99283

== ENCOUNTER 2018-05-01 01:54 | Emergency (ER) | payer MEDICAID, SELFPAY ==
[2018-05-01 01:55] VITALS: BP 168/84; PULSE 75; PULSE 82; RESP 15; RESP 20; TEMP 36.6; O2SAT 100; O2SAT 99; BMI 46.2
--- NOTE | 2018-05-01 01:59 | EKG12_ITS ---
Test Reason : CP Blood Pressure : / mmHG Vent. Rate : 075 BPM Atrial Rate : 075 BPM P-R Int : 174 ms QRS Dur : 090 ms QT Int : 388 ms P-R-T Axes : 044 -22 005 degrees QTc Int : 433 ms Normal sinus rhythm Low voltage QRS Poor R wave progression Borderline ECG Confirmed by JERRICA JUNIOR, BOBBY ([id number]), general expeditor AMERICA GUNTER ([id number]) on 05/04/2018 3:37:18 PM Referred By: SUSANA Confirmed By:BOBBY BECERRIL MD
--- NOTE | 2018-05-01 02:11 | ED.VISSUMM ---
- ER Visit Summary Date of Service: 05/01/18 Chief Complaint: Left arm pain History of Present Illness: The patient is a 52 F who complains of pain along left side of her neck and down her left arm for 3-4 weeks. She was seen 1 month ago for similar symptoms. She was placed on a muscle relaxant. She has also been taking meloxicam at home. She has an appointment with her primary care provider next week. She states her pain is been increased in the last 3-4 days she also has some numbness and tingling in the left thumb index and middle fingers. No weakness. No chest pain or shortness of breath. Physical Examination: Afebrile hypertensive vitals otherwise unremarkable Heart regular rate and rhythm Lungs clear Patient does appear uncomfortable Patient has normal strength in the upper extremity she does have tenderness along the left trapezius and although her sensation is intact to light touch she reports that it is decreased in the distribution of the distal C6-C7 dermatomes Test Results: Not indicated Emergency Department Course and Treatment: Patient's history and examination is consistent with cervical radiculopathy. She was given tramadol here for pain as well as a prescription for short course of the same and advised to keep her scheduled follow-up appointment. We also discussed other potential treatments including physical therapy and if not improving possible need for MRI on a nonemergent basis. She understands to return for new or worsening symptoms and was instructed on signs and symptoms to monitor for and was discharged Treatment Plan: [] Disposition: Discharge Impression: Cervical radiculopathy This note was generated with [employer] dictation software. It may contain incorrect words, spelling, and punctuation that were not noted in review of the chart prior to signing ED Disposition - Plan for ED Patient: Chief Complaint: Back Referrals: [facility] Franchesca Rebolledo [Primary Care Provider] -
--- NOTE | 2018-05-01 02:14 | ED.DEP ---
ED Disposition - Plan for ED Patient: Chief Complaint: Back Instructions: ED Cervical Radiculopathy Prescriptions: traMADol [Ultram] 50 mg PO Q6H PRN 3 Days #12 tab PRN Reason: Pain Referrals: [facility] Kesha,Franchesca Myers [Primary Care Provider] -
[2018-05-01] MEDS: traMADol 50 MG Tablet PO (02:19)
[2018-05-01 02:21] VITALS: BP 153/72; PULSE 72; RESP 19; O2SAT 98
== END 2018-05-01 02:26 | disposition home or self-care (01) ==
LOC: ED 02:18
PROVIDERS: Emergency Provider Emergency Medicine
DX: M54.12 Radiculopathy, cervical region (principal); K21.9 Gastro-esophageal reflux disease without esophagitis; I10 Essential (primary) hypertension; E03.9 Hypothyroidism, unspecified; Z79.899 Other long term (current) drug therapy
CPT/HCPCS: 93005; 99283

== ENCOUNTER → 2018-07-16 20:00 | Outpatient (CLI) | payer MEDICAID, SELFPAY | PROVIDERS: Referring Provider Nurse Practitioner Family | DX: G47.10 Hypersomnia, unspecified (principal) | CPT/HCPCS: 95810 ==

== ENCOUNTER → 2018-08-10 | Outpatient (CLI) | payer MEDICAID, SELFPAY | END | disposition home or self-care (01) | LOC: SL 23:31 | PROVIDERS: Referring Provider Nurse Practitioner Family | DX: G47.33 Obstructive sleep apnea (adult) (pediatric) (principal) | CPT/HCPCS: 95811 ==

== ENCOUNTER → 2018-08-24 | Outpatient (CLI) | payer MEDICAID, SELFPAY | END | disposition home or self-care (01) | LOC: SL 14:39 | PROVIDERS: Referring Provider Nurse Practitioner Family | DX: Z00.00 Encounter for general adult medical examination without abnormal findings (principal) ==

== ENCOUNTER → 2018-09-07 | Outpatient (CLI) | payer MEDICAID, SELFPAY | END | disposition home or self-care (01) | LOC: SL 16:49 | PROVIDERS: Visit Provider Nurse Practitioner Family | DX: Z00.00 Encounter for general adult medical examination without abnormal findings (principal) ==

== ENCOUNTER → 2018-09-10 | Outpatient (CLI) | payer MEDICAID, SELFPAY ==
--- NOTE | 2018-09-10 11:52 | PFT ---
INTRODUCTION: The patient is a 52-year-old female that presents for pulmonary function testing secondary to a diagnosis of COPD. Respiratory therapy reports good patient effort. Bronchodilators were used during testing. INTERPRETATION: Forced expiration spirometry demonstrates no evidence of a large airways obstructive ventilatory defect. There was no significant response to aerosolized bronchodilators, based upon strict ATS criteria. Spirograms are of good quality and plateau normally. Body plethysmography was performed and reveals lung volumes to be within normal limits. Diffusing capacity by single breath CO is at the lower limits of normal at 72% of predicted. IMPRESSION: Normal spirometry and lung volumes. Diffusing capacity is at the lower limits of normal. There is no evidence of COPD.
== END | disposition home or self-care (01) ==
LOC: PSN 06:59
DX: J44.9 Chronic obstructive pulmonary disease, unspecified (principal)
CPT/HCPCS: 94060; 94726; 94729

== ENCOUNTER → 2018-12-16 13:28 | Outpatient (CLI) | payer MEDICAID, SELFPAY ==
[2018-11-29 13:58] VITALS: BMI 46.2
--- NOTE | 2018-12-16 13:29 | CT_ITS ---
STUDY: CT ABDOMEN AND PELVIS WITH CONTRAST REASON FOR EXAM: Female, 53 years old. Abdominal pain. Nausea and vomiting. Diarrhea. RADIATION DOSAGE (If Supplied By Facility): CTDIvol = ( 22.06 ) mGy, DLP = ( 1338.44 ) mGycm TECHNIQUE: Transaxial images were obtained from the dome of the diaphragm to the symphysis pubis with oral contrast. 100mL IV/Oral Isovue 300 was administered. Sagittal and coronal images were reconstructed. Individualized dose optimization techniques were used for this CT. COMPARISON: None. FINDINGS: The visualized lung bases are unremarkable. The visualized portions of the heart are within normal limits. There is hepatomegaly with diffuse hepatic enlargement. The gallbladder is contracted. There is a benign calcified granuloma of the spleen. Normal pancreas. Normal bilateral adrenal glands. Normal right kidney. Normal left kidney. There is no hydronephrosis. Normal visualized stomach. Normal small intestine. There are multiple colonic diverticula consistent with diverticulosis. There is non-visualization of the appendix. Normal abdominal aorta. Normal inferior vena cava. Normal retroperitoneum. Normal urinary bladder. Normal visualized uterus. There is no free fluid in the abdomen or pelvis. Normal abdominal wall. Mild degenerative change of the spine. Mild sacroiliac sclerosis. CT/Abdomen/Pelvis WITH Contrast IMPRESSION: Colonic diverticulosis. No obstruction or abscess Hepatomegaly. Electronically Signed: Billy Sow MD at 23:53 EDT , Service support ,
== END ==
PROVIDERS: Referring Provider Surgery; Visit Provider Surgery
DX: R10.32 Left lower quadrant pain (principal); R10.9 Unspecified abdominal pain
CPT/HCPCS: 74177; Q9967; A4216

== ENCOUNTER → 2019-03-04 10:38 | Outpatient (CLI) | payer MEDICAID, SELFPAY ==
[2018-11-29 13:58] VITALS: BMI 46.2
--- NOTE | 2019-03-04 10:55 | BI_ITS ---
MAMMOGRAPHY - BILATERAL SCREENING 3-D TOMOSYNTHESIS REASON FOR EXAM: Female, 53 years old. PERTINENT HISTORY: No significant family history. TECHNIQUE: 2-D mammograms and 3-D Tomosynthesis of the breast (s) were performed. CAD was performed. COMPARISON: March 02, 2018 FINDINGS: The breast composition is of scattered fibroglandular tissue. Scattered benign calcifications are seen. No dense spiculated masses or suspicious microcalcifications are identified. No architectural distortion is identified. There is no skin thickening or nipple retraction. Benign-appearing lymph nodes seen particularly in the left axilla not included in the right axilla the spine There has been no significant change since the prior study of March 02, 2018 BI/SCREEN MAMM (CAD) W/GIANCARLO BILAT IMPRESSION: No mammographic signs of malignancy. Routine yearly mammograms recommended. ASSESSMENT CATEGORY: BIRADS Category 1: Negative. A letter regarding these results will be sent to the patient by the facility within 30 days. FOLLOW UP RECOMMENDATION: Yearly follow up mammogram recommended. (A) Approximately 10% of breast cancers are not detected by mammography. A normal mammogram should not delay biopsy of a clinically suspicious abnormality. Electronically Signed: Andrea Archer, at 14:24 EST Tel , Service support ,
== END ==
DX: Z12.31 Encounter for screening mammogram for malignant neoplasm of breast (principal)
CPT/HCPCS: 77063; 77067

== ENCOUNTER → 2019-09-13 11:48 | Outpatient (CLI) | payer MEDICAID, SELFPAY ==
[2018-11-29 13:58] VITALS: BMI 46.2
[2019-09-13 15:48] LABS: ALB/GLOB Ratio 1.1 RATIO (0.9-2.4); AST(SGOT) 35 U/L (15-37); Alanine Aminotransfer ALT/SGPT 72 U/L (13-56); Albumin, Serum 3.6 g/dL (3.2-5.0); Alkaline Phosphatase 115 U/L (45-117); Anion Gap 7 (5-15); BUN 14 mg/dL (7-18); Calcium,Total 8.7 mg/dL (8.5-10.1); Chloride 104 mmol/L (98-107); Cholesterol 161 mg/dL (200); EST Glomerular Filtration Rate 62 mL/min (>60); Est Glom Filt Rate - Afr Amer 75 mL/min (>60); Globulin 3.2 g/dL (2.2-4.2); Glucose 96 mg/dL (74-106); High Density Lipoprotein 50 mg/dL; Potassium 3.8 mmol/L (3.5-5.1); Protein, Total 6.8 g/dL (6.4-8.2); Sodium Level 139 mmol/L (136-145); Thyroid Stim Hormone (TSH) 1.91 uIU/mL (0.358-3.74); Triglycerides 102 mg/dL; Very Low Density Lipoprotein 20 mg/dL (5-40)
[2019-09-13 15:51] LABS: BNP,B-Type NATRIURETIC PEPTIDE 61.9 pg/mL (0-100)
== END ==
PROVIDERS: PCP Family Medicine; Referring Provider Family Medicine; Visit Provider Family Medicine
DX: I10 Essential (primary) hypertension (principal); E03.9 Hypothyroidism, unspecified
CPT/HCPCS: 36415; 80053; 80061; 83880; 84443

== ENCOUNTER → 2019-12-06 | Outpatient (CLI) | payer MEDICAID, SELFPAY ==
[2019-12-06 13:45] VITALS: BMI 46.2
[2019-12-13 18:17] LABS: HPV APTIMA, High Risk Negative (Negative)
== END | disposition home or self-care (01) ==
LOC: LABSPEC 16:55
PROVIDERS: PCP Family Medicine; Referring Provider Nurse Practitioner Women's Health; Visit Provider Nurse Practitioner Women's Health
DX: Z12.4 Encounter for screening for malignant neoplasm of cervix (principal)
CPT/HCPCS: 87624; 88175; G0145

== ENCOUNTER → 2019-12-07 | Outpatient (CLI) | payer MEDICAID, SELFPAY ==
--- NOTE | 2019-12-06 | EMB_PTH ---
PATIENT: [facility]OSUE [facility]INSTEIN [facility][id number] AGE/SX: 54/F ROOM: RE12/07/[address]: IRASEMA Lawrence : 1965 BED: DIS: 12/07/2019 SPEC #: [id number] RECD: 12/06/19 17:41 STATUS: RISHI REGa #: [id number] CHRISTOFER: 12/06/19 00:[address]: Cate Montero NP DEPT: SURGICAL PATHOLOGY RECD BY: Benjamin Ryan ENTERED: 12/07/19 10:35 SP TYPE: ENDOM BX/C MC DR: Dr. Joseph Ferguson MD Tissues: Endometrium, NOS Procedures: Surgery Specimen Level IV HEADER OPERATION: Endometrial biopsy PRE-OP DIAGNOSIS: PMB TISSUE SUBMITTED: Endometrial biopsy MICROSCOPIC DIAGNOSIS Endometrial biopsy: Mildly disordered proliferative endometrium. SJ:yaya 12/08/19 MICROSCOPIC DESCRIPTION Slides are reviewed. GROSS DESCRIPTION Received is one container labeled with the patient's name and not further designated. The specimen consists of multiple fragments of hemorrhagic soft tissue that in aggregate measure 2 x 1 x 0.2 cm. The specimen is totally submitted in one cassette. / SJ:yaya 12/07/19 TC:5 CPT: 86163
[2019-12-06 13:45] VITALS: BMI 46.2
== END | disposition home or self-care (01) ==
LOC: LABSPEC 07:34
PROVIDERS: PCP Family Medicine; Referring Provider Nurse Practitioner Women's Health; Visit Provider Nurse Practitioner Women's Health
DX: N85.8 Other specified noninflammatory disorders of uterus (principal)
CPT/HCPCS: 88305

== ENCOUNTER → 2019-12-13 13:46 | Outpatient (CLI) | payer MEDICAID, SELFPAY ==
[2019-12-06 13:45] VITALS: BMI 46.2
--- NOTE | 2019-12-13 13:47 | US_ITS ---
STUDY: ULTRASOUND OF THE FEMALE PELVIS - COMPLETE REASON FOR EXAM: Female, 54 years old.. Postmenopausal bleeding. TECHNIQUE: Transabdominal and Transvaginal TECHNICAL QUALITY: Adequate. COMPARISON: CT of the abdomen and pelvis, 12/16/2018. FINDINGS: The uterus is anteverted and is in a midline position. The uterus measures 6.8 x 3.1 x 3.2 cm. There is a Nabothian cyst of the cervix. The endometrium measures 5.1 mm in thickness, and is hyperechoic. There is no demonstrated endometrial mass. Myometrium is heterogenous without distinct fibroid. I.U.D. - The patient does not have an I.U.D. The right ovary is not visualized. There is no visualized right adnexal mass or complex lesion. The left ovary is not visualized.. There is no visualized left adnexal mass or complex lesion. There is no fluid in the cul-de-sac. The pre void volume of the bladder was 1138 ml. No mass or filling defect. Polycystic ovary disease: No. US/Pelvic (Non ) IMPRESSION: 1. Mild heterogeneity of the myometrium without fibroid. The uterus is otherwise unremarkable. 2. Nonvisualization the ovaries. 3. Marked distention of the urinary bladder without obvious abnormality. Electronically Signed: Kristofer Evangelista DO at 20:49 EDT Tel [phone], Service support ,
--- NOTE | 2019-12-13 13:47 | US_ITS ---
STUDY: ULTRASOUND OF THE FEMALE PELVIS - COMPLETE REASON FOR EXAM: Female, 54 years old.. Postmenopausal bleeding. TECHNIQUE: Transabdominal and Transvaginal TECHNICAL QUALITY: Adequate. COMPARISON: CT of the abdomen and pelvis, 12/16/2018. FINDINGS: The uterus is anteverted and is in a midline position. The uterus measures 6.8 x 3.1 x 3.2 cm. There is a Nabothian cyst of the cervix. The endometrium measures 5.1 mm in thickness, and is hyperechoic. There is no demonstrated endometrial mass. Myometrium is heterogenous without distinct fibroid. I.U.D. - The patient does not have an I.U.D. The right ovary is not visualized. There is no visualized right adnexal mass or complex lesion. The left ovary is not visualized.. There is no visualized left adnexal mass or complex lesion. There is no fluid in the cul-de-sac. The pre void volume of the bladder was 1138 ml. No mass or filling defect. Polycystic ovary disease: No. US/Transvaginal Non- IMPRESSION: 1. Mild heterogeneity of the myometrium without fibroid. The uterus is otherwise unremarkable. 2. Nonvisualization the ovaries. 3. Marked distention of the urinary bladder without obvious abnormality. Electronically Signed: Kristofer Evangelista DO at 20:49 EDT Tel [phone], Service support ,
== END ==
PROVIDERS: PCP Family Medicine; Referring Provider Nurse Practitioner Women's Health; Visit Provider Nurse Practitioner Women's Health
DX: N95.0 Postmenopausal bleeding (principal)
CPT/HCPCS: 76830; 76856

== ENCOUNTER → 2020-03-12 | Outpatient (CLI) | payer MEDICAID, SELFPAY ==
[2019-12-29 11:54] VITALS: BMI 50.2
== END | disposition home or self-care (01) ==
PROVIDERS: PCP Family Medicine; Referring Provider Family Medicine; Visit Provider Family Medicine
DX: J98.8 Other specified respiratory disorders (principal)
CPT/HCPCS: 87635; U0003

== ENCOUNTER → 2020-06-15 07:49 | Outpatient (CLI) | payer MEDICAID, SELFPAY ==
[2019-12-29 11:54] VITALS: BMI 50.2
--- NOTE | 2020-06-15 07:59 | US_ITS ---
STUDY: ABDOMINAL ULTRASOUND - RIGHT UPPER QUADRANT REASON FOR VISIT: Female, 54 years old RUQ ABD PAIN TECHNIQUE: Ultrasound evaluation of the right upper quadrant was performed with real-time and static dawson-scale imaging. TECHNICAL QUALITY: Adequate. COMPARISON: None. FINDINGS: Liver: The liver measures 19.3 cm. There is increased echogenicity consistent with fatty infiltration. The bile ducts are within normal limits. There is hepatic color flow. The direction of portal flow is hepatopetal. There is no demonstrated mass lesion. Gallbladder: Normal distended gallbladder. The gallbladder wall measures 2.7 mm. There is a negative sonographic Mantilla''s sign. There is no pericholecystic fluid. There is a solitary echogenic gallstone within the gallbladder neck measuring 1.1 x 1.4 x 0.9 cm. Common Bile Duct (C.B.D.): The common bile duct measures 5.3 mm. Pancreas: Normal size of the head, body and tail of the pancreas. There is normal echogenicity of the pancreas. There is no demonstrated pancreatic mass or cyst. Right Kidney: Normal size of the right kidney. The right kidney measures 12 cm. Normal renal cortex. The right cortex measures 1.1 cm. There is no demonstrated renal mass or cyst. There is no right hydronephrosis. US/Abdomen Limited IMPRESSION: Hepatomegaly and fibrofatty infiltration of the liver. Cholelithiasis at the gallbladder neck without evidence of acute cholecystitis. Electronically Signed: Isa Wagoner MD at 10:54 EST Tel , Service support ,
== END ==
PROVIDERS: PCP Family Medicine; Referring Provider Family Medicine; Visit Provider Family Medicine
DX: R10.11 Right upper quadrant pain (principal)
CPT/HCPCS: 76705

== ENCOUNTER → 2020-06-18 10:21 | Outpatient (CLI) | payer MEDICAID, SELFPAY ==
[2019-12-29 11:54] VITALS: BMI 50.2
[2020-06-18 12:39] LABS: Absolute Lymphocyte Count 3.62 X10^3/uL (0.83-4.51); Absolute Neutrophil Count 3.6 X10^3/uL (2.0-7.7); Basophil# 0.05 X10^3/uL; Basophil% 0.6 % (0-1); Eosinophil# 0.13 X10^3/uL; Eosinophils% 1.6 % (0-5); Hematocrit 40.9 % (37-47); Hemoglobin 12.8 g/dL (12.0-15.0); Lymphocyte # 3.62 X10^3/ul (4.0); Lymphocyte % 45.9 % (19-41); Mean Corp Hgb Conc 31.3 g/dL (32-36); Mean Corpuscular Hgb 30.4 pg (27.0-32.0); Mean Corpuscular Volume 97.1 fL (81-99); Mean Platelet Vol. 11.1 fl (6.2-12.0); Monocyte# 0.43 X10^3/uL; Monocyte% 5.5 % (0-10); NRBC Flagged by Analyzer 0 % (0-5); Neutrophil # 3.63 X10^3/uL (2.7-7.7); Neutrophil % 46.1 % (47-70); Platelet Count 308 K/mm3 (150-450); RBC Distribution Width CV 12.9 % (11.6-14.6); RBC Distribution Width SD 45.4 fl (35.1-43.9); Red Blood Count 4.21 M/mm3 (4.2-5.4); White Blood Count 7.9 K/mm3 (4.4-11.0)
[2020-06-18 12:54] LABS: Vitamin B12 380 pg/mL (211-911)
[2020-06-18 13:11] LABS: ALB/GLOB Ratio 1.1 RATIO (0.9-2.4); AST(SGOT) 36 U/L (15-37); Alanine Aminotransfer ALT/SGPT 57 U/L (13-56); Alkaline Phosphatase 110 U/L (45-117); Anion Gap 4 (5-15); BUN 17 mg/dL (7-18); BUN/Creat Ratio 15.3 RATIO (10-20); Calcium,Total 9.1 mg/dL (8.5-10.1); Chloride 104 mmol/L (98-107); Cholesterol 159 mg/dL (200); Creatinine, Serum 1.11 mg/dL (0.55-1.02); EST Glomerular Filtration Rate 55 mL/min (>60); Est Glom Filt Rate - Afr Amer 66 mL/min (>60); Globulin 3.6 g/dL (2.2-4.2); Glucose 94 mg/dL (74-106); High Density Lipoprotein 57 mg/dL; Protein, Total 7.6 g/dL (6.4-8.2); Sodium Level 139 mmol/L (136-145); Thyroid Stim Hormone (TSH) 3.18 uIU/mL (0.358-3.74); Triglycerides 86 mg/dL; Very Low Density Lipoprotein 17 mg/dL (5-40)
== END ==
PROVIDERS: PCP Family Medicine; Visit Provider Family Medicine
DX: E03.9 Hypothyroidism, unspecified (principal); R20.0 Anesthesia of skin; I10 Essential (primary) hypertension
CPT/HCPCS: 36415; 80053; 80061; 82607; 82746; 84443; 85025

== ENCOUNTER 2020-06-25 11:22 | Day surgery (SDC) | payer MEDICAID, SELFPAY ==
[2020-06-19 14:37] VITALS: BMI 51.0
--- NOTE | 2020-06-22 09:43 | EKG12_ITS ---
Test Reason : PREOP Blood Pressure : / mmHG Vent. Rate : 066 BPM Atrial Rate : 066 BPM P-R Int : 180 ms QRS Dur : 098 ms QT Int : 422 ms P-R-T Axes : 035 -09 029 degrees QTc Int : 442 ms Normal sinus rhythm Normal ECG Confirmed by FRANK JUNIOR, DARIUS ([id number]), editor house organ VIKAS ZIEGLER ([id number]) on 06/25/2020 10:22:29 AM Referred By: Jessica Israel Confirmed By:DARIUS MARIE MD
[2020-06-22 11:17] LABS: International Normalized Ratio 1.1; Prothrombin Time (Protime)PT. 13.7 SECONDS (11.7-14.9)
[2020-06-22 11:18] LABS: Partial Thromboplast Time 26.4 Seconds (24.1-36.2)
[2020-06-22 11:43] LABS: AST(SGOT) 31 U/L (15-37); Alanine Aminotransfer ALT/SGPT 48 U/L (13-56); Albumin, Serum 3.8 g/dL (3.2-5.0); Alkaline Phosphatase 106 U/L (45-117); Bilirubin, Direct 0.19 mg/dL (0.00-0.30); Globulin 3.5 g/dL (2.2-4.2); Protein, Total 7.3 g/dL (6.4-8.2)
[2020-06-25] VITALS (7 sets, daily range): BP systolic 129–152; BP diastolic 68–100; PULSE 65–90; RESP 16–18; TEMP 36.2–37.1; O2SAT 92–99; BMI 49.5
--- NOTE | 2020-06-25 | GALL_PTH ---
PATIENT: JOSUE WEINSTEIN [place] [facility] [place][id number] AGE/SX: 54/F ROOM: RE06/25/[address]: Dr. Jessica Israel MD : 1965 BED: DIS: 06/25/2020 SPEC #: [id number] RECD: 06/25/20 14:55 STATUS: RISHI REGa #: [id number] CHRISTOFER: 06/25/20 00:[address]: Jessica Israel DEPT: SURGICAL PATHOLOGY RECD BY: Benjamin Ryan ENTERED: 06/26/20 07:52 SP TYPE: ABELARDO BENTLEY DR: Dr. Joseph Ferguson MD Tissues: Gallbladder, NOS Procedures: Surgery Specimen Level III HEADER OPERATION: Laparoscopic cholecystectomy with IOC PRE-OP DIAGNOSIS: Gallstone TISSUE SUBMITTED: Gallbladder MICROSCOPIC DIAGNOSIS Gallbladder, cholecystectomy: Cholesterolosis, chronic cholecystitis and cholelithiasis. Benign pericystic lymph node. AM:yaya 06/27/2020 MICROSCOPIC DESCRIPTION Slides are reviewed. GROSS DESCRIPTION Received is one container labeled with the patient's name and designated gallbladder. The specimen consists of a gallbladder measuring 7.5 cm in length and up to 2.5 cm in diameter. The external surface is pink-garcia, smooth and glistening for the most part. Focally it is granular, hemorrhagic and contains cautery artifact. The gallbladder contains green-yellow mucoid bile and ten round to ovoid stones measuring in aggregate 1.5 x 1.5 x 1.2 cm. The mucosa also shows several yellowish streaks consistent with cholesterolosis. The mucosa is bile-stained and without any mass lesions. The gallbladder wall measures up to 0.3 cm in thickness. Close to the cystic duct an ovoid garcia nodule is noted, a possible lymph node, measuring 0.5 cm in greatest dimension. Plane Captain sections from the gallbladder and the cystic duct and possible lymph node are submitted in one cassette. / SJ:yaya 06/26/20 TC:3 CPT: 73454
[2020-06-25] MEDS: Lactated Ringers 1,000 ML 100 ML IV (12:03)
--- NOTE | 2020-06-25 12:10 | PCM.HP.BLA ---
History and Physical Date of Admission: 06/25/20 Date of Service: 06/19/20 MR#: [id number] Acct: [id number] Name: JOSUE WEINSTEIN Rep #: [id number] : 1965 Provider: Dr. Jessica Israel MD Age/Sex: 54/F Location: [facility] Status: Signed Intake Vital Signs 06/19/20 Height 5 ft 5 in 06/19/20 Weight: 306 lb 6 oz 06/19/20 BMI 51.0 06/19/20 BP 148/83 H 06/19/20 Blood Pressure Location Rt brachial 06/19/20 Position Sitting 06/19/20 Respiration 22 H 06/19/20 Pulse 68 06/19/20 Pulse Source NIBP 06/19/20 Temp 97.4 F L 06/19/20 Temp Source Temporal 06/19/20 Pulse Oximetry (%) 100 06/19/20 Oxygen Delivery Method room air Intake Visit Reasons: Gallstones Chief Complaint: RUQ pain Payroll Manager Required: No Is patient in pain?: Yes (RUQ into right back ) Pain scale (1-10): 7 Allergies amlodipine Allergy (Unknown, Verified 12/06/19 13:34) Unknown carvedilol Allergy (Unknown, Verified 12/06/19 13:34) Unknown coconut Allergy (Verified 12/06/19 13:34) Swelling ketorolac tromethamine [From Toradol] Allergy (Verified 12/06/19 13:34) Rash lisinopril Allergy (Verified 12/06/19 13:34) Rash Medications Losartan/Hydrochlorothiazide [Losartan-Hctz 50-12.5 mg Tab] 1 ea PO DAILY 03/02/17 [History Confirmed 06/19/20] Venlafaxine HCl [Effexor] 37.5 mg PO DAILY 03/02/17 [History Confirmed 06/19/20] Pantoprazole Sodium 40 mg PO DAILY 05/01/18 [History Confirmed 06/19/20] albuterol sulfate 90 mcg/actuation aerosol inhaler 2 puff INHALATION Q6H 11/29/18 [History Confirmed 06/19/20] fluticasone propionate 110 mcg/actuation HFA aerosol inhaler 1 puff INHALATION BID 11/29/18 [History Confirmed 06/19/20] levothyroxine 25 mcg capsule 25 mcg PO DAILY 11/29/18 [History Confirmed 06/19/20] meloxicam 7.5 mg tablet 7.5 mg PO DAILY 11/29/18 [History Confirmed 06/19/20] montelukast 10 mg tablet 10 mg PO QPM 11/29/18 [History Confirmed 06/19/20] levocetirizine 5 mg tablet 5 mg PO DAILY 12/06/19 [History Confirmed 06/19/20] spironolactone 25 mg tablet 25 mg PO DAILY 12/06/19 [History Confirmed 06/19/20] medroxyprogesterone 10 mg tablet 10 mg PO DAILY #10 tab 12/29/19 [Rx Confirmed 06/19/20] bupropion HCl 150 mg 24 hr tablet, extended release 150 mg PO DAILY tablet 06/19/20 [History Confirmed 06/19/20] sucralfate 1 gram tablet 1 g PO QACHS tablet 06/19/20 [History Confirmed 06/19/20] Is last menstrual period known: No Post menopausal: Yes Patient : No PFSH Medical History Abdominal pain (Acute) Acid reflux (Acute) Arthritis (Acute) Asthma (Acute) Constipation (Acute) Depression with anxiety (Acute) Hemorrhoids (Acute) History of back problems (Acute) Nausea (Acute) Obesity (Acute) Shortness of breath (Acute) Sleep apnea (Acute) Thyroid disease (Acute) COPD (chronic obstructive pulmonary disease) (Chronic) Hypertension (Chronic) Surgical History Colonoscopy planned (Acute ~03/04/17) History of appendectomy (Acute) Family History Mother Arthritis Diabetes Heart disease Hypertension Kidney disease CVA (cerebral vascular accident) Thyroid disorder Cancer leukemia Father Arthritis Cancer lung cancer Heart disease Hypertension CVA (cerebral vascular accident) Brother Arthritis Diabetes Sister Arthritis Heart disease Social History (Updated 06/20/20 @ 09:[address] Jessica Israel MD) household members: spouse number of children: 0 current occupational status: unemployed history of recent travel: No sexually active: No Smoking Status: Never smoker alcohol intake: current substance use type: does not use what type of physical activity do you participate in: walking seatbelt use: always do you feel safe at home: Yes additional social history: - Toño HPI HPI HPI: JOSUE WEINSTEIN, is a 54 F who presents to the office today for HPI HPI Surgical H&P: Yes HPI: JOSUE WEINSTEIN, is a 54 F who presents to the office today for gallstones. Patient states she has been having right upper quadrant pain for the last 3 to 4 months after eating about 30 minutes but she states she can have it also in the middle of the night however it does not seem to wake her up but she notices it if she actually rolls over on that side. Patient states she has bowel movements daily which are normal or at least every other day. Patient did previously try Protonix 40 mg daily and then even twice daily along with Carafate for about 30 days had no change in the pain that was about 2 months ago. Patient denies reflux. Patient's ultrasound did show a solitary gallstone near the neck of the gallbladder. Patient's LFTs were normal. Ultrasound showed a wall 2.7 mm, no pericholecystic fluid, normal common bile duct. ROS General General: Yes weight change and fatigue; no appetite, colon cancer, breast cancer or weakness HEENT HEENT: Yes difficulty swallowing; no eye injury, eye surgery, swollen glands or hoarseness Endo Endocrine: Yes thyroid disease; no diabetes mellitus, thyroid cancer, Hair loss, heat intolerance or cold intolerance Musc Musculoskeletal: Yes back problems and arthritis; no rheumatoid arthritis, gout or joint pain Cardio Cardiovascular: Yes high blood pressure; no pacemaker, heart disease, atrial fibrillation, heart attack, heart stent, palpitations, shortness of breat with exertion or chest pain Psych Psychiatric: Yes depression and anxiety; no hearing voices Resp Respiratory: Yes shortness of breath, Yes sleep apnea, No cough, Yes COPD, Yes asthma, No emphysema, No wheezing Gastro Gastrointestinal: Yes abdominal pain, Yes nausea or vomiting, No diarrhea, Yes constipation, No blood in stool, Yes acid reflux, Yes hemorrhoids, No ulcers, No gallbladder problem, No black,tarry stools Anish Hematologic: No blood thinners, No blood disorders, No bleeding, No anemia, No blood clots Neuro Neurologic: No weakness Exam Const General: cooperative, comfortable, well developed Resp Effort & Inspection: normal respiratory effort Cardio Rate: regular rate GI Inspection: non-distended, obesity Palpation: soft, tender (Epigastric and right upper quadrant, no peritoneal signs) Extrem General: no clubbing, cyanosis or edema Psych Affect: normal affect Assessment & Plan Problems 1. Gallstone K80.20 Plan Reviewed the anatomy with the patient and discussed the procedure: laparoscopic cholecystectomy with cholangiograms, possible open. Review risks including but not limited to bleeding, infection, hernia, bile leak, retained gallstones requiring another procedure ERCP- Endoscopic Retrograde Cholangiopancreatography, injury to another organ (bile ducts, common bile duct, small bowel, etc.) may require transfer to tertiary care facility and conversion to an open procedure. All questions were answered. Jessica Israel M.D. Pager: [phone] [facility] [address] [place] [address], [address] [place] [address] Office: [phone] Plan Detail Follow Up We will schedule lap juan Coding Level of Care Code Off vis,new,level 4 Diagnoses Gallstone K80.20 COVID (Procedure Consent) Procedure Criteria Procedure Criteria: Yes Elective The surgeon/proceduralist and patient have discussed in detail the risk of exposure to and/or potential harm posed by the COVID-19 virus with having a surgery/procedure at this time versus the risk of? delaying the surgery/procedure. It is not possible to know either the risk of delaying the surgery or procedure or chance of getting an infection with perfect accuracy, but a joint decision was made between the patient and the surgeon/proceduralist ?to proceed at this time with the scheduled surgery/procedure as indicated on the consent form. 06/20/20 0909 <Electronically signed by Jessica Israel MD> Date Jessica Israel MD
--- NOTE | 2020-06-25 13:05 | RAD_ITS ---
STUDY: INTRAOPERATIVE CHOLANGIOGRAM. REASON FOR EXAM: Female, 54 years old. Cholecystectomy. FLUOROSCOPY TIME (if supplied): ( 7 seconds ) minutes/seconds. A cine loop of 32 images was submitted. TECHNIQUE: An intraoperative cholangioma was performed by the surgeon. Imaging was obtained. COMPARISON: None. FINDINGS: The intra and extrahepatic biliary ducts are unremarkable. No intraluminal filling defect is seen. There is free flow of contrast into the duodenum. RAD/Cholangiogram/ O R,Initial IMPRESSION: Unremarkable intraoperative cholangiogram. Electronically Signed: Willis Hicks MD at 14:38 EDT , Service support ,
[2020-06-25] MEDS: Bupivacaine Mpf 0.5% 30 ML VIAL (14:10)
--- NOTE | 2020-06-25 14:13 | PCM.OPRPT ---
Report of Operation Date of Procedure: 06/25/20 Pre-Operative Diagnosis: Cholelithiasis, right upper quadrant pain Post-Operative Diagnosis: Same Surgery/Procedure Performed:: Laparoscopic cholecystectomy with cholangiograms superintendent police: Mago Parrish Type of Anesthesia:: General/Supplemental Anesthesiologist: Nader Rivas Special Medications: Ancef 3 g IV x1 Specimen's removed: Gallbladder Estimated Blood Loss (mL): 10 cc Fluids Replaced: 800 cc Description of Procedure: Indications this is a 54 year-old female who developed abdominal pain/nausea/vomiting and on workup was found to have cholelithiasis, with a normal common bile duct. Laparoscopic cholecystectomy was elected. Description procedure: The patient was placed on operating table in supine position. General Anesthesia was induced. A timeout was completed verifying correct patient, procedure, site, position and special equipment prior to beginning procedure. The abdomen was prepped and draped in usual sterile fashion. An incision was made in the natural skin line above the umbilicus. The fascia was elevated and incised. The peritoneum was elevated and incised. Entry into the peritoneum was confirmed visually and no bowel was noted in the vicinity of the incision. Vásquez trocar was placed. The abdomen was insufflated with carbon dioxide to a pressure of 12-15 mmHg. Patient tolerated insufflation well. The laparoscope was then inserted and abdomen inspected. No injuries from initial trocar placement were noted. Additional trochars were then inserted in the following locations 5 mm trocar in the epigastrium and 2 more 5 mm trochars along the right costal margin. The abdomen was inspected no abnormalities were found. The table is placed in reverse Trendelenburg position with the right side up. The adhesions between the gallbladder and omentum were lysed sharply. The dome of the gallbladder was grasped with atraumatic grasper passed through the lateral port and retracted over the dome of the liver. Infundibulum was then grasped with atraumatic grasper through the midclavicular port and retracted to the right lower quadrant. This maneuver exposed Calot's triangle. The peritoneum overlying the gallbladder infundibulum was then incised and cystic duct and artery identified and circumferentially dissected. Drake catheter was used for cholangiograms. The cholangiogram showed good filling of the common bile duct into the duodenum with no filling defects, good filling of the right and left bile ducts as well. The cystic duct and artery were then doubly clipped and divided close to the gallbladder. The gallbladder then dissected from its peritoneal attachments by electrocautery. Hemostasis was checked and the gallbladder and contained stones were removed using the endoscopic retrieval bag through the umbilical port. The gallbladder is passed off table as specimen. The gallbladder fossa was copiously irrigated with saline and hemostasis obtained. There is no evidence of bleeding from the gallbladder fossa or cystic artery leakage of bile from the cystic duct stump. Secondary trochars removed under direct vision. No bleeding was noted the trocar sites. The laparoscope was withdrawn and umbilical trocar removed. The abdomen was allowed to collapse. The fascia of the 12 mm trocar was closed with a [id number] 0 Vicryl suture. The skin was closed with sutures of 4-0 Monocryl and Steri-Strips. The orogastric tube was removed and the patient was extubated. The patient tolerated procedure well and was taken to the postanesthesia care unit in stable condition. - Complications none
--- NOTE | 2020-06-25 14:16 | PCM.DC.GB ---
Discharge Diet: Light diet - advance as tolerated Discharge Activity: May not drive while taking narcotic pain medications. May shower in (days): 1 Lifting Restrictions: no lifting > 20 lbs x 2 wks, no strenuous exercise for 4 wks Call your doctor if your incision/area has: Continuous Slow Oozing, Sudden Increased Bleeding, Increased Pain/ Swelling, Increased Redness, Foul Smelling Discharge, Swelling at the incision site Call your doctor if you observe: Fever of 101 or Higher Remove Dressing in (days):: 1 - Steri-Strips will stay on for 7 to 10 days if they do not follow-up in 10 days okay to remove Additional Instructions: Okay to take ibuprofen 400-600 mg PO q6hr PRN along with the Percocet. Avoid Tylenol since there is already Tylenol in the Percocet. Take all pain meds with food. Percocet can cause constipation recommend taking daily stool softener (i.e. Colace/docusate) while taking the pain meds. Recommend starting some MiraLAX 1 to 2 days if no bowel movement. If still no bowel movement following day recommend taking magnesium citrate half the bottle and waiting 4-6 hours if still no results take the other half the bottle. Allergies/Adverse Reactions: Allergies amlodipine Allergy (Unknown, Verified 06/25/20 11:44) Rash carvedilol Allergy (Unknown, Verified 06/25/20 11:44) Rash coconut Allergy (Verified 06/25/20 11:44) Swelling ketorolac tromethamine [From Toradol] Allergy (Verified 06/25/20 11:44) Rash lisinopril Allergy (Verified 06/25/20 11:44) Rash Medications to take at Discharge Losartan/Hydrochlorothiazide [Losartan-Hctz 50-12.5 mg Tab] 1 ea PO DAILY 03/02/17 Venlafaxine HCl [Effexor] 37.5 mg PO DAILY 03/02/17 Pantoprazole Sodium 40 mg PO DAILY 05/01/18 albuterol sulfate 90 mcg/actuation aerosol inhaler 2 puff INHALATION Q6H 11/29/18 fluticasone propionate 110 mcg/actuation HFA aerosol inhaler 1 puff INHALATION BID 11/29/18 levothyroxine 25 mcg capsule 25 mcg PO DAILY 11/29/18 meloxicam 7.5 mg tablet 7.5 mg PO DAILY 11/29/18 montelukast 10 mg tablet 10 mg PO QPM 11/29/18 levocetirizine 5 mg tablet 5 mg PO DAILY 12/06/19 spironolactone 25 mg tablet 25 mg PO DAILY 12/06/19 medroxyprogesterone 10 mg tablet 10 mg PO DAILY #10 tab 12/29/19 bupropion HCl 150 mg 24 hr tablet, extended release 150 mg PO DAILY tablet 06/19/20 sucralfate 1 gram tablet 1 g PO QACHS tablet 06/19/20 Polyethylene Glycol 3350 [Miralax] 17 gm PO DAILY 06/22/20 Oxycodone HCl/Acetaminophen [Percocet 5/325] 1 - 2 tablet PO Q6H PRN PRN 5 Days #25 tablet 06/25/20 Primary Care Physician: Joseph Ferguson MD [Primary Care Provider] - Test Results: Test results from this visit will be discussed in further detail at your follow-up appointment, if applicable. Please Follow Up With: Jessica Israel MD - After 5 PM and on weekends call [phone] with any questions When: For follow-up appointment 2 weeks. Proposed Discharge Date: 06/25/20
[2020-06-25] MEDS: Acetaminophen 325 MG Tablet 650 MG PO (16:04)
[2020-06-25] MEDS: oxyCODONE 5 MG Tablet 10 MG PO (16:04)
== END 2020-06-25 17:30 | disposition home or self-care (01) ==
LOC: SDC 11:23 → AC 11:27
PROVIDERS: Anesthesiology; PCP Family Medicine; Referring Provider Surgery; Visit Provider Surgery
PROC: (CPT 47610; principal; 2020-06-25 12:45)
DX: K80.10 Calculus of gallbladder with chronic cholecystitis without obstruction (principal); Z20.828 Contact with and (suspected) exposure to other viral communicable diseases; I10 Essential (primary) hypertension; K21.9 Gastro-esophageal reflux disease without esophagitis; M19.90 Unspecified osteoarthritis, unspecified site; F41.8 Other specified anxiety disorders; E66.9 Obesity, unspecified; Z68.43 Body mass index [BMI] 50.0-59.9, adult; G47.30 Sleep apnea, unspecified; J44.9 Chronic obstructive pulmonary disease, unspecified; Z86.2 Personal history of diseases of the blood and blood-forming organs and certain disorders involving the immune mechanism; Z78.0 Asymptomatic menopausal state; Z79.899 Other long term (current) drug therapy
CPT/HCPCS: 00790; 47563; 36415; 74300; 76000; 80076; 85610; 85730; 87426; 88304; 93005; C9803; J7120; J2405

== ENCOUNTER → 2020-08-20 14:29 | Outpatient (CLI) | payer MEDICAID, SELFPAY ==
[2020-06-25 11:46] VITALS: BMI 49.5
--- NOTE | 2020-08-20 12:34 | RAD_ITS ---
STUDY: X-RAY - LEFT KNEE REASON FOR EXAM: Female, 54 years old. Left knee pain, and stiffness TECHNIQUE: 4 view(s) of the knee. COMPARISON: 2018 FINDINGS: Normal visualized distal femur. Normal visualized proximal tibia and fibula. Normal proximal tibiofibular articulation. There is moderate degenerative arthrosis of the medial femorotibial compartment with moderate joint space narrowing. There is mild degenerative arthrosis of the lateral femorotibial compartment. There is mild degenerative arthrosis of the patellofemoral articulation. The soft tissue structures are unremarkable. RAD/Knee 4 or More Views IMPRESSION: Degenerative arthrosis. Electronically Signed: Juaquin José MD at 7:41 EDT , Service support ,
--- NOTE | 2020-08-20 14:31 | VDLE_ITS ---
Reason For Study: SWELLING Procedure LEFT Exam performed in department. GSV is normal. A preliminary report was called and/or faxed CFV is compressible, spontaneous, phasic, to DR SASHA FERGUSON. competent, and demonstrates normal augmentation. FV is compressible, spontaneous, phasic, competent and demonstrates normal augmentation. POP V is compressible, spontaneous, phasic, competent and demonstrates normal augmentation. T/P Trunk is compressible. PTV is compressible. LT PerV is compressible. There is a non-vascularized, hypoechoic structure noted in Popliteal space measuring 2.63 x 1.78 cm. VL/Venous Duplex US, Unilateral Interpretation Summary Left leg with no DVT or SVT. Probable bakers cyst noted. Ordering Physician: Sasha Ferguson Referring Physician: Sasha Ferguson Performed By: Jane Yousif, VAUGHN, RVT
[2020-08-20 15:20] LABS: Hemoglobin 12.8 g/dL (12.0-15.0); Mean Corpuscular Hgb 30.2 pg (27.0-32.0); Mean Corpuscular Volume 94.3 fL (81-99); Mean Platelet Vol. 11.5 fl (6.2-12.0); Platelet Count 312 K/mm3 (150-450); RBC Distribution Width CV 13.2 % (11.6-14.6); RBC Distribution Width SD 45.5 fl (35.1-43.9); Red Blood Count 4.24 M/mm3 (4.2-5.4); White Blood Count 7.6 K/mm3 (4.4-11.0)
[2020-08-20 15:30] LABS: Uric Acid 5.8 mg/dL (2.6-6.0)
== END ==
PROVIDERS: PCP Family Medicine; Referring Provider Family Medicine; Visit Provider Family Medicine
DX: M79.89 Other specified soft tissue disorders (principal); M25.562 Pain in left knee
CPT/HCPCS: 36415; 73564; 84550; 85027; 93971

== ENCOUNTER → 2020-09-11 15:51 | Outpatient (CLI) | payer MEDICAID, SELFPAY ==
[2020-06-25 11:46] VITALS: BMI 49.5
[2020-09-11 18:21] LABS: Erythrocyte Sedimentation Rate 30 mm/hr (0-30)
[2020-09-11 18:23] LABS: Rheumatoid Factor < 10.0 IU/mL (<15); Thyroid Stim Hormone (TSH) 2.71 uIU/mL (0.358-3.74)
[2020-09-13 16:28] LABS: ANTINUCLEAR ANTIBODIES DIRECT Negative (Negative)
[2020-09-14 11:08] LABS: CCP IgG Antibodies 3 units (0-19)
== END ==
PROVIDERS: PCP Family Medicine; Visit Provider Family Medicine
DX: E03.9 Hypothyroidism, unspecified (principal); M25.50 Pain in unspecified joint
CPT/HCPCS: 36415; 84443; 85652; 86038; 86140; 86200; 86431

== ENCOUNTER → 2020-12-21 12:19 | Outpatient (CLI) | payer MEDICAID, SELFPAY ==
--- NOTE | 2020-12-21 12:21 | BI_ITS ---
MAMMOGRAPHY - BILATERAL SCREENING REASON FOR EXAM: Female, 55 years old. Routine annual screening examination. PERTINENT HISTORY: Aunts with breast cancer. TECHNIQUE: Digital bilateral breast giancarlo (3D mammographic acquisition) in the CC and MLO projections. 2-D mediolateral oblique (MLO) and craniocaudad (CC) views of both breasts were obtained. CAD: Full Field Digital Mammography with Computer Added Detection was performed. COMPARISON: Comparison is made with prior study dated 03/04/2019 and 2017. FINDINGS: Breast Composition: The breasts are heterogeneously dense, which may obscure small masses. There are no dominant masses or suspicious calcifications. Stable benign-appearing bilateral axillary No other significant abnormalities are identified. There has been no significant change since the prior study. BI/SCRN MAMM (CAD)W/GIANCARLO BILAT IMPRESSION: Stable bilateral screening mammogram. Yearly follow-up mammogram recommended. (A) ASSESSMENT CATEGORY: BIRADS Category 2: Benign. A letter regarding these results will be sent to the patient by the facility within 30 days. Approximately 10% of breast cancers are not detected by mammography. A normal mammogram should not delay biopsy of a clinically suspicious abnormality. [id number] Electronically Signed: Willis Hicks MD at 13:21 EDT , Service support ,
== END ==
PROVIDERS: PCP Family Medicine; Referring Provider Family Medicine; Visit Provider Family Medicine
DX: Z12.31 Encounter for screening mammogram for malignant neoplasm of breast (principal)
CPT/HCPCS: 77063; 77067

== ENCOUNTER → 2021-01-17 11:08 | Outpatient (CLI) | payer MEDICAID, SELFPAY ==
[2021-01-17 13:07] LABS: AST(SGOT) 45 U/L (15-37); Alanine Aminotransfer ALT/SGPT 59 U/L (13-56); Albumin, Serum 3.4 g/dL (3.2-5.0); Alkaline Phosphatase 115 U/L (45-117); Anion Gap 3 (5-15); BUN 13 mg/dL (7-18); BUN/Creat Ratio 12.4 RATIO (10-20); Calcium,Total 9.1 mg/dL (8.5-10.1); Chloride 108 mmol/L (98-107); Creatinine, Serum 1.05 mg/dL (0.55-1.02); EST Glomerular Filtration Rate 58 mL/min (>60); Est Glom Filt Rate - Afr Amer 70 mL/min (>60); Globulin 3.3 g/dL (2.2-4.2); Glucose 93 mg/dL (74-106); Potassium 4.2 mmol/L (3.5-5.1); Protein, Total 6.7 g/dL (6.4-8.2); Sodium Level 139 mmol/L (136-145); Thyroid Stim Hormone (TSH) 2.07 uIU/mL (0.358-3.74)
== END ==
PROVIDERS: Family Medicine; PCP Nurse Practitioner Family; Referring Provider Nurse Practitioner Family; Visit Provider Nurse Practitioner Family
DX: E03.9 Hypothyroidism, unspecified (principal)
CPT/HCPCS: 36415; 80053; 84443

== ENCOUNTER → 2021-02-15 10:12 | Outpatient (CLI) | payer MEDICAID, SELFPAY ==
--- NOTE | 2021-02-15 10:23 | MRI_ITS ---
EXAM: MR HEAD WITHOUT AND WITH INTRAVENOUS CONTRAST : 1965 CLINICAL INDICATION: HEARING LOSS- gradual RIGHT side TECHNIQUE: Multiplanar and multisequence MR images of the brain were obtained without and with intravenous contrast. This report was created using [employer] report [employer] technology. CONTRAST: 26ml dotarem via IV COMPARISON: None. FINDINGS: BRAIN AND EXTRA-AXIAL SPACES: No abnormal contrast enhancement. No intra- or extra-axial hemorrhage. No evidence of acute infarct. No intracranial mass or mass effect. There is preservation of the dawson/white matter interface. Posterior fossa structures are unremarkable. Ventricles are appropriate for age. No hydrocephalus. Basal cisterns are patent. SELLA: Unremarkable. Normal sella turcica, pituitary gland, infundibular stalk, optic chiasm and hypothalamus. AUDITORY SYSTEM: Unremarkable. The internal auditory canals are patent. BONES/JOINTS: Unremarkable. No discrete lytic or blastic abnormalities. SINUSES: Unremarkable as visualized. Clear. MASTOID AIR CELLS: Unremarkable as visualized. Clear. ORBITS: Unremarkable as visualized. Both globes, extraocular muscles, optic nerves and retrobulbar fat appear unremarkable. VASCULATURE: Unremarkable as visualized. Normal flow voids in the major intracranial circulation. MRI/Brain W/WO Contrast IMPRESSION: Normal MRI of brain with and without contrast. at 1319 Reported and signed by: Lucio Gomes MD Electronically Signed: Lucio Gomes MD at 13:18 EST Tel , Service support , History: Right-sided hearing loss MRI of the temporal bones: Technique: High resolution MR sequences of the temporal bones posterior fossa obtained with and without contrast enhancement. Findings: Internal auditory canals are normal. Normal 70 VIII nerve roots identified. No intra-or extra-axial mass posterior fossa. Vestibular and cochlear structures are normal in appearance and symmetric. No opacification of the external auditory canal or middle ear. IMPRESSION: Normal MRI of the temporal bones. at 1322 Reported and signed by: Lucio Gomes MD Electronically Signed: Lucio Gomes MD at 13:21 EST Tel , Service support ,
== END ==
PROVIDERS: PCP Nurse Practitioner Family; Referring Provider Otolaryngology; Visit Provider Otolaryngology
DX: H93.11 Tinnitus, right ear (principal); H91.91 Unspecified hearing loss, right ear
CPT/HCPCS: 70553; A9575

== ENCOUNTER → 2021-12-24 | Outpatient (CLI) | payer MEDICAID, SELFPAY ==
[2021-12-24 17:44] LABS: Absolute Neutrophil Count 4.1 X10^3/uL (2.0-7.7); Basophil# 0.04 X10^3/uL; Basophil% 0.5 % (0-1); Eosinophil# 0.09 X10^3/uL; Eosinophils% 1.1 % (0-5); Hematocrit 41.6 % (37-47); Hemoglobin 13.4 g/dL (12.0-15.0); Lymphocyte % 44.4 % (19-41); Mean Corp Hgb Conc 32.2 g/dL (32-36); Mean Corpuscular Hgb 30.6 pg (27.0-32.0); Mean Platelet Vol. 11.8 fl (6.2-12.0); Monocyte# 0.39 X10^3/uL; Monocyte% 4.7 % (0-10); NRBC Flagged by Analyzer 0 % (0-5); Neutrophil % 49.1 % (47-70); Platelet Count 305 K/mm3 (150-450); RBC Distribution Width CV 12.5 % (11.6-14.6); RBC Distribution Width SD 43.9 fl (35.1-43.9); Red Blood Count 4.38 M/mm3 (4.2-5.4); White Blood Count 8.3 K/mm3 (4.4-11.0)
[2021-12-24 18:35] LABS: Microalbumin,Random Urine 5.5 mg/L (NO RANGE EST.)
[2021-12-24 18:38] LABS: ALB/GLOB Ratio 1.2 RATIO (0.9-2.4); AST(SGOT) 31 U/L (15-37); Alanine Aminotransfer ALT/SGPT 50 U/L (13-56); Albumin, Serum 3.9 g/dL (3.2-5.0); Alkaline Phosphatase 118 U/L (45-117); Anion Gap 7 (5-15); BUN 15 mg/dL (7-18); BUN/Creat Ratio 13.3 RATIO (10-20); Calcium,Total 9.3 mg/dL (8.5-10.1); Chloride 107 mmol/L (98-107); Cholesterol 163 mg/dL (200); Creatinine, Serum 1.13 mg/dL (0.55-1.02); EST Glomerular Filtration Rate 53 mL/min (>60); Est Glom Filt Rate - Afr Amer 64 mL/min (>60); Globulin 3.2 g/dL (2.2-4.2); Glucose 97 mg/dL (74-106); High Density Lipoprotein 49 mg/dL; Potassium 4.3 mmol/L (3.5-5.1); Protein, Total 7.1 g/dL (6.4-8.2); Sodium Level 142 mmol/L (136-145); Triglycerides 99 mg/dL; Very Low Density Lipoprotein 20 mg/dL (5-40)
[2021-12-24 18:43] LABS: Hemoglobin A1c 5.8 % (3.8-5.6)
== END | disposition home or self-care (01) ==
LOC: MFPLAB 14:21
PROVIDERS: PCP Family Medicine; Referring Provider Family Medicine; Visit Provider Family Medicine
DX: I10 Essential (primary) hypertension (principal); E66.01 Morbid (severe) obesity due to excess calories
CPT/HCPCS: 36415; 80053; 80061; 82043; 83036; 85025

== ENCOUNTER → 2021-12-26 | Outpatient (CLI) | payer MEDICAID, SELFPAY ==
--- NOTE | 2021-12-26 12:22 | BI_ITS ---
MAMMOGRAPHY - BILATERAL SCREENING 3-D TOMOSYNTHESIS REASON FOR EXAM: Female, 56 years old. screening PERTINENT HISTORY: No significant family history. TECHNIQUE: 2-D mammograms and 3-D Tomosynthesis of the breast (s) were performed. CAD was performed. COMPARISON: 12/21/2020 FINDINGS: The breast composition is heterogeneously dense that can obscure small breast masses. Scattered benign calcifications are seen. No dense spiculated masses or suspicious microcalcifications are identified. No architectural distortion is identified. There is no skin thickening or retraction. There has been no significant change since the prior study. BI/SCRN MAMM (CAD)W/GIANCARLO BILAT IMPRESSION: No mammographic signs of malignancy. Routine yearly mammograms recommended. ASSESSMENT CATEGORY: BIRADS Category 1: Negative. A letter regarding these results will be sent to the patient by the facility within 30 days. FOLLOW UP RECOMMENDATION: Yearly follow up mammogram recommended. (A) Approximately 10% of breast cancers are not detected by mammography. A normal mammogram should not delay biopsy of a clinically suspicious abnormality. Electronically Signed: Pb Benoit MD at 14:47 EDT ,
== END | disposition home or self-care (01) ==
LOC: OPBI 12:21
PROVIDERS: PCP Family Medicine; Visit Provider Family Medicine
DX: Z12.31 Encounter for screening mammogram for malignant neoplasm of breast (principal)
CPT/HCPCS: 77063; 77067

== ENCOUNTER → 2022-01-22 | Outpatient (CLI) | payer MEDICAID, SELFPAY ==
--- NOTE | 2022-01-22 | EMB_PTH ---
PATIENT: JOSUE WEINSTEIN [facility]: [facility]#:[id number] AGE/SX: 56/F ROOM: RE01/22/[address]: IRASEMA Lawrence : 1965 BED: DIS: 01/22/2022 SPEC #: [id number] RECD: 01/22/22 11:12 STATUS: RISHI [facility]IRCHILD #: [id number] CHRISTOFER: 01/22/22 00:[address]: Cate Montero NP DEPT: SURGICAL PATHOLOGY RECD BY: Rob Quiroz ENTERED: 01/22/22 13:31 SP TYPE: ENDOM BX/C MC DR: Kimberly Hyman DO Tissues: Endometrium, NOS Procedures: Surgery Specimen Level IV HEADER OPERATION: Endometrial biopsy PRE-OP DIAGNOSIS: PMB TISSUE SUBMITTED: Endometrial tissue MICROSCOPIC DIAGNOSIS Endometrium, biopsy: Strips of benign superficial endocervix and endometrium with focal stromal breakdown. AM:yaya 01/23/2022 MICROSCOPIC DESCRIPTION Slides are reviewed. GROSS DESCRIPTION Received is one container labeled with the patient's name and not further designated. The specimen consists of multiple fragments of hemorrhagic soft tissue mixed with mucoid tissue that in aggregate measure 2.5 x 1.5 x 0.1 cm. The specimen is totally submitted in one cassette. / SJ:yaya 01/22/2022 TC:5 [facility]: [id number]
== END | disposition home or self-care (01) ==
LOC: LABSPEC 11:19
PROVIDERS: PCP Family Medicine; Referring Provider Nurse Practitioner Women's Health; Visit Provider Nurse Practitioner Women's Health
DX: N95.0 Postmenopausal bleeding (principal)
CPT/HCPCS: 88305

== ENCOUNTER → 2022-01-28 | Outpatient (CLI) | payer MEDICAID, SELFPAY ==
--- NOTE | 2022-01-28 15:28 | US_ITS ---
STUDY: ULTRASOUND OF THE FEMALE PELVIS - COMPLETE REASON FOR EXAM: Female, 56 years old. bleeding-AUB LMP: TECHNIQUE: Transabdominal and transvaginal TECHNICAL QUALITY: Adequate. COMPARISON: 12/13/2019 FINDINGS: The uterus is anteverted and is in a midline position. The uterus measures 7.5 x 4.3 x 3.26 cm. Normal uterine cervix. The endometrium measures 7 mm in thickness, and is hyperechoic. There is no demonstrated endometrial mass. There is a fibroid measuring 1.4 x 1.5 x 1.2 cm on the right. I.U.D. - The patient does not have an I.U.D. nabothian cyst noted within the lower uterine segment Right ovary is not visualized. There is no adnexal mass. Left ovary is not visualized. There is no adnexal mass. There is no fluid in the cul-de-sac. The pre void volume of the bladder was 259.23 ml. The intrauterine fibroid is not clearly demonstrated on prior exam. Otherwise no significant change US/Transvaginal Non- IMPRESSION: Small intrauterine fibroid measuring approximately 1.4 x 1.5 x 1.2 cm Endometrial lining of 7 mm thickness which is upper limits of normal for postmenopausal status Electronically Signed: Abelardo Corrales MD at 17:10 EDT ,
--- NOTE | 2022-01-28 15:28 | US_ITS ---
STUDY: ULTRASOUND OF THE FEMALE PELVIS - COMPLETE REASON FOR EXAM: Female, 56 years old. bleeding-AUB LMP: TECHNIQUE: Transabdominal and transvaginal TECHNICAL QUALITY: Adequate. COMPARISON: 12/13/2019 FINDINGS: The uterus is anteverted and is in a midline position. The uterus measures 7.5 x 4.3 x 3.26 cm. Normal uterine cervix. The endometrium measures 7 mm in thickness, and is hyperechoic. There is no demonstrated endometrial mass. There is a fibroid measuring 1.4 x 1.5 x 1.2 cm on the right. I.U.D. - The patient does not have an I.U.D. nabothian cyst noted within the lower uterine segment Right ovary is not visualized. There is no adnexal mass. Left ovary is not visualized. There is no adnexal mass. There is no fluid in the cul-de-sac. The pre void volume of the bladder was 259.23 ml. The intrauterine fibroid is not clearly demonstrated on prior exam. Otherwise no significant change US/Pelvic (Non ) IMPRESSION: Small intrauterine fibroid measuring approximately 1.4 x 1.5 x 1.2 cm Endometrial lining of 7 mm thickness which is upper limits of normal for postmenopausal status Electronically Signed: Abelardo Corrales MD at 17:10 EDT ,
== END | disposition home or self-care (01) ==
LOC: US 15:26
PROVIDERS: PCP Family Medicine; Referring Provider Nurse Practitioner Women's Health; Visit Provider Nurse Practitioner Women's Health
DX: N95.0 Postmenopausal bleeding (principal)
CPT/HCPCS: 76830; 76856

== ENCOUNTER → 2022-08-02 | Outpatient (CLI) | payer MEDICAID, SELFPAY ==
--- NOTE | 2022-08-02 08:00 | MRI_ITS ---
EXAM: MR LEFT LOWER EXTREMITY WITHOUT INTRAVENOUS CONTRAST, KNEE CLINICAL INDICATION: pain, rule out MM tear TECHNIQUE: Multiplanar and multisequence MR images of the left knee without intravenous contrast. COMPARISON: No relevant prior studies available. FINDINGS: BONES/JOINTS: See below. EXTENSOR MECHANISM: Unremarkable. MEDIAL MENISCUS: Unremarkable. LATERAL MENISCUS: Unremarkable. MEDIAL CAPSULE/SUPPORTING STRUCTURES: Unremarkable. Intact. LATERAL CAPSULE/SUPPORTING STRUCTURES: Unremarkable. Lateral collateral ligamentous complex, inclusive of the popliteal tendon, are intact. ANTERIOR CRUCIATE LIGAMENT: Unremarkable. Intact. POSTERIOR CRUCIATE LIGAMENT: Unremarkable. Intact. MUSCLES: Unremarkable. CARTILAGE: Moderate to high-grade chondral fissure is seen just lateral to the median ridge of the patella. No underlying subchondral marrow signal abnormalities. FLUID: Moderate size Nichole''s cyst without evidence of inferior leakage or rupture. Small to moderate suprapatellar joint effusion without significant synovitis. MRI/Lower Ext Joint Only (Routine) IMPRESSION: 1. Moderate to high-grade chondral fissure is seen just lateral to the median ridge of the patella. No underlying subchondral marrow signal abnormalities. 2. Small to moderate suprapatellar joint effusion without significant synovitis. 3. [id number] Nichole''s cyst with no evidence of inferior leakage or rupture. Electronically Signed: Andi Chilel MD at 4:02 EDT ,
== END | disposition home or self-care (01) ==
LOC: MRI 07:42
PROVIDERS: PCP Family Medicine; Referring Provider Orthopaedic Surgery Sports Medicine; Visit Provider Orthopaedic Surgery Sports Medicine
DX: M25.562 Pain in left knee (principal); S86.912A Strain of unspecified muscle(s) and tendon(s) at lower leg level, left leg, initial encounter; M17.12 Unilateral primary osteoarthritis, left knee
CPT/HCPCS: 73721

== ENCOUNTER 2022-08-05 14:30 | Outpatient (RCR) | payer MEDICAID, SELFPAY ==
--- NOTE | 2022-07-22 14:27 | HP.PTEVAL ---
Patient's Visit Information JOSUE WEINSTEIN is a 56 year old F referred to Physical Therapy by Dr. Dioni Tiwari MD with a diagnosis of UNILATERAL PRIMARY OSTEOARTHRITIS ,LEFT KNEE. Date of Evaluation: 07/22/22 Physical Therapist: Papito Sams, PT, Cert MDT, OCS - Visit Plan Frequency: 2x /Week Duration: 4 Weeks Plan: PT INTERVETIONS ROM/FLEXABLITY LEFT KNEE ,STRENGTH QUADS/HAMS/HIP ,FUNCTIONAL STRENGTHENING AND MODALTIES FOR PAIN - Subjective This 56 y/o female presents to physical therapy with left knee pain. Patient noticed pain left knee ~ 1 month ago walking [place] . Patient pain > medial knee described as sharp/stabbing ache. Seen orthopedic DR did x-rays showed mild DJD ,and did cortisone injection. Patient was prescribed as meloxicam. Aggravating walking/standing ,unable to squat /kneeling. Stairs are difficult with pain. Alleviating factors ice ,rest. Denies paresthesia/tingling. MD want to do MRI but needs PT. Patient pain affects sleeping. Patient symptoms affects daily housework tasks. Patient pain affects QOL and function. VOCATION: unemployed. SOCIAL: - Pain Left Knee Pain Intensity (Out of 10): 7 Pain Intensity Range: 10 - Objective POSTURE: mild forward posture ,slight knee valgus. GAIT: reciprocal pattern with antalgic gait with decrease stance decrease velocity. 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 EDEMA: chronic 3+ legs left > right. AROM: 10-105 degrees supine knee flexion pain. MMT: quads 10.2,hamstrings 11.1,hip flexion 9,8 ,hip abduction 5.8. STAIRS: one step at time with rails - Special Tests L Knee Sabra - Meniscus: Positive L Knee Serge - ACL: Negative L Knee Valgus - MCL: Negative L Knee Varus - LCL: Negative L Knee Patellar Apprehension - PFS: Positive L Knee Patellar Grind - PFS: Positive - Balance/Special Test Scores Lower Extremity Functional Score: 28 - Goals Goal 1:: I with HEP for knee . Goal Time Frame: 4-6 Weeks Goal 2:: Patient to normalize gait pattern with less antalgic gait 70% of the time Goal Time Frame: 4-6 Weeks Goal 3:: Patient improve AROM knee flexion 5-115 degrees to improve stairs Goal Time Frame: 4-6 Weeks Goal 4:: Patient to improve peak force MMT by 5-10 quads/hams/hip to improve gait Goal Time Frame: 4-6 Weeks Goal 5:: Patient LFES score by 5-10 points to improve function and QOL Goal Time Frame: 4-6 Weeks - Rehabilitation Potential Physical Therapy Diagnosis: This patient has left knee pain with possible meniscus with decrease ROM with pain ,weakness ,decrease gait with antalgic pattern thus impairs ADLS and housework tasks Rehabilitation Potential: Fair - Anticipated Interventions Patient/Client Instruction: Educate patient on: Condition, Plan of Care For the Purpose of:: To decrease pain, To increase ROM, To improve muscle performance and motor function, To improve ability to perform ADL's, To increase tolerance to activity/condition/position, To improve ability of physical actions for home/community/work/leisure, To improve health of tissue, To decrease soft tissue restriction, To increase flexibility/ROM Therapeutic Exercise to Include: Strength training, Endurance training, Balance training, Postural training, Flexibilty training, Active ROM For the Purpose of:: To decrease pain, To increase ROM, To improve nutrient delivery to tissue, To increase oxygenation perfusion, To improve ability to perform ADL's, To increase tolerance to activity/condition/position, To improve ability of physical actions for home/community/work/leisure, To improve health of tissue, To decrease soft tissue restriction, To increase flexibility/ROM, To improve endurance, To improve balance, To improve tolerance to ADL's TENS: Yes IF ES: Yes Cryotherapy (ice pack, ice massage): Yes Thermo therapy (hot pack): Yes Ultrasound (thermal/non thermal): Yes For the Purpose of:: To decrease pain, To decrease swelling/inflammation, To increase ROM, To improve nutrient delivery to tissue, To increase oxygenation perfusion, To improve health of tissue, To decrease soft tissue restriction Thank you for the opportunity to evaluate your patient. For Medicare and Medicare HMO plans, please review the plan of care and approve it. It will need to be FAXED BACK to us at [phone] for Medicare purposes. For Medicare only, by signing this I certify the plan of care. Please let me know if there are questions or concerns regarding this plan of care. Physician Signature: Date:
--- NOTE | 2022-12-03 15:49 | HP.PT.NRP ---
Patient Information Patient Information: JOSUE WEINSTEIN was seen in my office for initial evaluation on 07/22/22. The following Plan of Care was established for this patient: POC Established Initial Frequency: 2x /Week Initial Duration: 4 Weeks Anticipated Interventions Patient/Client Instruction: Educate patient on: Condition and Plan of Care For the Purpose of:: To decrease pain, To increase ROM, To improve muscle performance and motor function, To improve ability to perform ADL's, To increase tolerance to activity/condition/position, To improve ability of physical actions for home/community/work/leisure, To improve health of tissue, To decrease soft tissue restriction and To increase flexibility/ROM Therapeutic Exercise to Include: Strength training, Endurance training, Balance training, Postural training, Flexibilty training and Active ROM For the Purpose of:: To decrease pain, To increase ROM, To improve nutrient delivery to tissue, To increase oxygenation perfusion, To improve ability to perform ADL's, To increase tolerance to activity/condition/position, To improve ability of physical actions for home/community/work/leisure, To improve health of tissue, To decrease soft tissue restriction, To increase flexibility/ROM, To improve endurance, To improve balance and To improve tolerance to ADL's TENS: Yes IF ES: Yes Cryotherapy (ice pack, ice massage): Yes Thermo therapy (hot pack): Yes Ultrasound (thermal/non thermal): Yes For the Purpose of:: To decrease pain, To decrease swelling/inflammation, To increase ROM, To improve nutrient delivery to tissue, To increase oxygenation perfusion, To improve health of tissue and To decrease soft tissue restriction Last Seen Last Seen: This patient was last seen in our office . Pertinent comments regarding their Physical therapy will appear below: Patient seen for PT for Knee pain thus had MRI -d/c At this point I will be discontinuing this patient from physical therapy. I would be happy to see this patient again in the future if found appropriate by the physician. Thank you! Papito Sams, PT, Cert MDT, OCS Balance/Gait/Functional tests Balance/Special Test Scores Lower Extremity Functional Score: 48
== END 2022-08-05 19:00 | disposition home or self-care (01) ==
LOC: PT 14:30
PROVIDERS: PCP Family Medicine; Referring Provider Orthopaedic Surgery Sports Medicine; Visit Provider Orthopaedic Surgery Sports Medicine
DX: S86.912D Strain of unspecified muscle(s) and tendon(s) at lower leg level, left leg, subsequent encounter (principal); M17.12 Unilateral primary osteoarthritis, left knee
CPT/HCPCS: 97014; 97110; 97162; G0283

== ENCOUNTER → 2022-12-22 | Outpatient (CLI) | payer MEDICAID, SELFPAY ==
[2022-12-22 17:39] LABS: Absolute Lymphocyte Count 2.97 X10^3/uL (0.83-4.51); Absolute Neutrophil Count 3.6 X10^3/uL (2.0-7.7); Basophil# 0.06 X10^3/uL; Basophil% 0.8 % (0-1); Eosinophil# 0.11 X10^3/uL; Eosinophils% 1.6 % (0-5); Hematocrit 41.2 % (37-47); Hemoglobin 13.1 g/dL (12.0-15.0); Lymphocyte # 2.97 X10^3/ul (0.83-4.51); Mean Corp Hgb Conc 31.8 g/dL (32-36); Mean Corpuscular Volume 94.3 fL (81-99); Mean Platelet Vol. 11.5 fl (6.2-12.0); Monocyte# 0.36 X10^3/uL; Monocyte% 5.1 % (0-10); NRBC Flagged by Analyzer 0 % (0-5); Neutrophil # 3.55 X10^3/uL (2.7-7.7); Neutrophil % 50.2 % (47-70); Platelet Count 313 K/mm3 (150-450); RBC Distribution Width CV 12.3 % (11.6-14.6); RBC Distribution Width SD 43.1 fl (35.1-43.9); Red Blood Count 4.37 M/mm3 (4.2-5.4); White Blood Count 7.1 K/mm3 (4.4-11.0)
[2022-12-22 18:12] LABS: Microalbumin,Random Urine < 5.0 mg/L (NO RANGE EST.)
[2022-12-22 18:17] LABS: Vitamin B12 1263 pg/mL (211-911); Vitamin D,25 Hydroxy 42.5 ng/mL
[2022-12-22 18:21] LABS: ALB/GLOB Ratio 1.2 RATIO (0.9-2.4); AST(SGOT) 30 U/L (15-37); Alanine Aminotransfer ALT/SGPT 35 U/L (13-56); Alkaline Phosphatase 109 U/L (45-117); Anion Gap 9 (5-15); BUN 19 mg/dL (7-18); BUN/Creat Ratio 17.4 RATIO (10-20); Calcium,Total 9.2 mg/dL (8.5-10.1); Chloride 107 mmol/L (98-107); Cholesterol 151 mg/dL (200); Creatinine, Serum 1.09 mg/dL (0.55-1.02); EST Glomerular Filtration Rate 55 mL/min (>60); Est Glom Filt Rate - Afr Amer 67 mL/min (>60); Ferritin 68 ng/mL (8-252); Globulin 3.4 g/dL (2.2-4.2); Glucose 98 mg/dL (74-106); High Density Lipoprotein 50 mg/dL; Potassium 3.9 mmol/L (3.5-5.1); Protein, Total 7.4 g/dL (6.4-8.2); Sodium Level 143 mmol/L (136-145); Thyroid Stim Hormone (TSH) 2.58 uIU/mL (0.358-3.74); Triglycerides 87 mg/dL; Very Low Density Lipoprotein 17 mg/dL (5-40)
[2022-12-22 18:28] LABS: Hemoglobin A1c 5.5 % (3.8-5.6)
== END | disposition home or self-care (01) ==
LOC: MFPLAB 14:45
PROVIDERS: PCP Family Medicine; Visit Provider Family Medicine
DX: R73.01 Impaired fasting glucose (principal); K21.9 Gastro-esophageal reflux disease without esophagitis; I10 Essential (primary) hypertension; E03.9 Hypothyroidism, unspecified
CPT/HCPCS: 36415; 80053; 80061; 82043; 82306; 82570; 82607; 82728; 83036; 84443; 85025

== ENCOUNTER → 2022-12-30 | Outpatient (CLI) | payer MEDICAID, SELFPAY ==
--- NOTE | 2022-12-30 12:27 | BI_ITS ---
MAMMOGRAPHY - BILATERAL SCREENING REASON FOR EXAM: Female, 57 years old. Routine annual screening examination. PERTINENT HISTORY: Aunts with breast cancer. History of prior left stereotactic breast biopsy. TECHNIQUE: Digital bilateral breast giancarlo (3D mammographic acquisition) in the CC and MLO projections. 2-D mediolateral oblique (MLO) and craniocaudad (CC) views of both breasts were obtained. CAD: Full Field Digital Mammography with Computer Added Detection was performed. COMPARISON: Comparison is made with prior study December 26, 2021 and December 21, 2020. FINDINGS: Breast Composition: The breasts are heterogeneously dense, which may obscure small masses. There are no dominant masses or suspicious calcifications. A tissue clip marker is once again seen in the slightly upper lateral aspect of the left breast. No other significant abnormalities are identified. There has been no significant change since the prior study. BI/SCRN MAMM (CAD)W/GIANCARLO BILAT IMPRESSION: Stable bilateral screening mammogram. Yearly follow-up mammogram recommended. (A) ASSESSMENT CATEGORY: BIRADS Category 2: Benign. A letter regarding these results will be sent to the patient by the facility within 30 days. Approximately 10% of breast cancers are not detected by mammography. A normal mammogram should not delay biopsy of a clinically suspicious abnormality. [id number] Electronically Signed: Willis Hicks MD at 13:55 EDT ,
== END | disposition home or self-care (01) ==
LOC: OPBI 12:26
PROVIDERS: PCP Family Medicine; Referring Provider Family Medicine; Visit Provider Family Medicine
DX: Z12.31 Encounter for screening mammogram for malignant neoplasm of breast (principal); Z80.3 Family history of malignant neoplasm of breast
CPT/HCPCS: 77063; 77067

== ENCOUNTER → 2023-09-22 | Outpatient (CLI) | payer MEDICAID, SELFPAY ==
[2023-09-22 17:48] LABS: Absolute Lymphocyte Count 3.62 X10^3/uL (0.83-4.51); Basophil# 0.05 X10^3/uL; Basophil% 0.6 % (0-1); Eosinophil# 0.06 X10^3/uL; Eosinophils% 0.7 % (0-5); Hematocrit 41.2 % (37-47); Hemoglobin 13.4 g/dL (12.0-15.0); Lymphocyte # 3.62 X10^3/ul (0.83-4.51); Lymphocyte % 44.2 % (19-41); Mean Corp Hgb Conc 32.5 g/dL (32-36); Mean Corpuscular Hgb 30.5 pg (27.0-32.0); Mean Corpuscular Volume 93.8 fL (81-99); Mean Platelet Vol. 10.9 fl (6.2-12.0); Monocyte# 0.43 X10^3/uL; Monocyte% 5.3 % (0-10); NRBC Flagged by Analyzer 0 % (0-5); Neutrophil # 4.01 X10^3/uL (2.7-7.7); Platelet Count 350 K/mm3 (150-450); RBC Distribution Width CV 12.8 % (11.6-14.6); RBC Distribution Width SD 44.5 fl (35.1-43.9); Red Blood Count 4.39 M/mm3 (4.2-5.4); White Blood Count 8.2 K/mm3 (4.4-11.0)
[2023-09-22 18:20] LABS: ALB/GLOB Ratio 1.1 RATIO (0.9-2.4); AST(SGOT) 27 U/L (15-37); Alanine Aminotransfer ALT/SGPT 45 U/L (13-56); Albumin, Serum 4.1 g/dL (3.2-5.0); Alkaline Phosphatase 124 U/L (45-117); Anion Gap 7 (5-15); BUN 18 mg/dL (7-18); BUN/Creat Ratio 16.2 RATIO (10-20); Calcium,Total 9.6 mg/dL (8.5-10.1); Chloride 106 mmol/L (98-107); Cholesterol 161 mg/dL (200); Creatinine, Serum 1.11 mg/dL (0.55-1.02); EST Glomerular Filtration Rate 54 mL/min (>60); Est Glom Filt Rate - Afr Amer 65 mL/min (>60); Globulin 3.6 g/dL (2.2-4.2); Glucose 93 mg/dL (74-106); High Density Lipoprotein 53 mg/dL; Potassium 3.9 mmol/L (3.5-5.1); Protein, Total 7.7 g/dL (6.4-8.2); Sodium Level 140 mmol/L (136-145); Triglycerides 100 mg/dL; Very Low Density Lipoprotein 20 mg/dL (5-40)
[2023-09-22 18:33] LABS: Hemoglobin A1c 5.5 % (3.8-5.6)
== END | disposition home or self-care (01) ==
LOC: MTLAB 15:37
PROVIDERS: PCP Family Medicine; Referring Provider Family Medicine; Visit Provider Family Medicine
DX: I10 Essential (primary) hypertension (principal); R73.03 Prediabetes; E03.9 Hypothyroidism, unspecified
CPT/HCPCS: 36415; 80053; 80061; 83036; 84443; 85025

== ENCOUNTER → 2023-12-17 | Outpatient (CLI) | payer MEDICAID, SELFPAY ==
--- NOTE | 2023-12-17 14:53 | ECHOD_ITS ---
Reason For Study: Bradycardia Procedure This was a 2D Doppler, Color Flow transthoracic echocardiogram. Exam performed in department. Left Ventricle Normal LV size. Left ventricular systolic function is normal. The estimated ejection fraction is 60 %. No regional wall motion abnormalities noted. Right Ventricle Normal RV size. Normal systolic function. Mitral Valve Normal mitral valve. Tricuspid Valve Normal tricuspid valve. Mild tricuspid valve insufficiency. Aortic Valve Normal aortic valve. Pulmonic Valve Normal pulmonic valve. Great Vessels Normal aortic root. The pulmonary artery is normal size. Inferior vena cava collapse with respiration. Pericardium/Pleural No pericardial effusion. MMode/2D Measurements & Calculations LVIDd: 5.2 cm IVSd: 1.1 cm LVOT diam: 2.0 cm LVIDs: 3.7 cm LVPWd: 1.0 cm LVOT area: 3.2 cm2 FS: 29.8 % Ao root diam: 3.1 cm LAV(MOD-bp): 59.3 ml Ao sinus diam: 3.2 cm LAV(MOD-bp) Indexed: 25.8 ml/m2 LAV(MOD-sp2): 66.2 ml LAV(MOD-sp4): 57.[address] Junction: 2.6 cm LA A4 area: 19.1 cm2 LA dimension(2D): 4.3 cm TAPSE: 2.5 cm RA A4 area: 16.3 cm2 Time Measurements MV dec time: 0.19 sec Doppler Measurements & Calculations MV E max mitchell: 91.3 cm/sec Lat Peak E' Mitchell: 12.8 cm/sec Med Peak E' Mitchell: 10.9 cm/sec MV A max mitchell: 87.8 cm/sec E/E' lat: 7.1 E/E' med: 8.3 MV E/A: 1.0 MV V2 max: 122.4 cm/sec MV P1/2t max mitchell: 123.4 cm/sec Ao V2 max: 153.1 cm/sec MV max P.0 mmHg MV P1/2t: 77.6 msec Ao max P.4 mmHg MV V2 mean: 71.2 cm/sec MV dec slope: 465.8 cm/sec2 LONA(V,D): 2.7 cm2 MV mean P.4 mmHg MV V2 VTI: 34.6 cm MVA(P1/2t): 2.8 cm2 LV V1 max: 129.6 cm/sec PA V2 max: 78.6 cm/sec TR max mitchell: 168.3 cm/sec LV V1 max P.7 mmHg TR max P.3 mmHg ECHO/Echo Complete Interpretation Summary Normal LV size. Left ventricular systolic function is normal. The estimated ejection fraction is 60 %. Structurally normal valves. Ordering Physician: Seema Rider Referring Physician: Seema Rider Performed By: Tigre Carrera RCS
== END | disposition home or self-care (01) ==
LOC: CVS 14:52
PROVIDERS: PCP Family Medicine; Referring Provider Family Medicine; Visit Provider Family Medicine
DX: R00.1 Bradycardia, unspecified (principal); I07.1 Rheumatic tricuspid insufficiency
CPT/HCPCS: 93306

== ENCOUNTER → 2024-01-22 | Outpatient (CLI) | payer MEDICAID, SELFPAY ==
--- NOTE | 2024-01-22 12:20 | BI_ITS ---
MAMMOGRAPHY - BILATERAL SCREENING REASON FOR EXAM: Female, 58 years old. Routine annual screening examination. PERTINENT HISTORY: Aunts with breast cancer. Prior left stereotactic breast biopsy. TECHNIQUE: Digital bilateral breast giancarlo (3D mammographic acquisition) in the CC and MLO projections. 2-D mediolateral oblique (MLO) and craniocaudad (CC) views of both breasts were obtained. CAD: Full Field Digital Mammography with Computer Added Detection was performed. COMPARISON: Comparison is made with prior study dated December 30, 2022 and December 26, 2021. FINDINGS: Breast Composition: The breasts are heterogeneously dense, which may obscure small masses. Stable partially calcified 1.6 cm x 0.9 cm nodule at the biopsy site with peripheral calcification suggestive of a fibroadenoma. Once again, a tissue clip marker is seen in the slightly upper lateral aspect of the left breast. Stable fat-containing left axillary lymph node. No other significant abnormalities are identified. There has been no significant change since the prior study. BI/SCRN MAMM (CAD)W/GIANCARLO BILAT IMPRESSION: Stable bilateral screening mammogram. Yearly follow-up mammogram recommended. (A) ASSESSMENT CATEGORY: BIRADS Category 2: Benign. A letter regarding these results will be sent to the patient by the facility within 30 days. Approximately 10% of breast cancers are not detected by mammography. A normal mammogram should not delay biopsy of a clinically suspicious abnormality. [id number] Electronically Signed: Willis Hicks MD at 10:18 EDT ,
== END | disposition home or self-care (01) ==
LOC: OPBI 12:19
PROVIDERS: PCP Family Medicine; Referring Provider Family Medicine; Visit Provider Family Medicine
DX: Z12.31 Encounter for screening mammogram for malignant neoplasm of breast (principal); Z80.3 Family history of malignant neoplasm of breast
CPT/HCPCS: 77063; 77067

== ENCOUNTER → 2024-04-11 | Outpatient (CLI) | payer MEDICAID, SELFPAY ==
[2024-04-11 17:59] LABS: Absolute Lymphocyte Count 3.85 X10^3/uL (0.83-4.51); Absolute Neutrophil Count 3.6 X10^3/uL (2.0-7.7); Basophil# 0.06 X10^3/uL; Basophil% 0.7 % (0-1); Eosinophil# 0.08 X10^3/uL; Hematocrit 39.7 % (37-47); Hemoglobin 12.9 g/dL (12.0-15.0); Lymphocyte # 3.85 X10^3/ul (0.83-4.51); Lymphocyte % 47.8 % (19-41); Mean Corp Hgb Conc 32.5 g/dL (32-36); Mean Corpuscular Hgb 30.6 pg (27.0-32.0); Mean Corpuscular Volume 94.1 fL (81-99); Mean Platelet Vol. 11.4 fl (6.2-12.0); Monocyte# 0.39 X10^3/uL; Monocyte% 4.8 % (0-10); NRBC Flagged by Analyzer 0 % (0-5); Neutrophil # 3.64 X10^3/uL (2.7-7.7); Neutrophil % 45.3 % (47-70); Platelet Count 305 K/mm3 (150-450); RBC Distribution Width CV 12.9 % (11.6-14.6); RBC Distribution Width SD 44.6 fl (35.1-43.9); Red Blood Count 4.22 M/mm3 (4.2-5.4); White Blood Count 8.1 K/mm3 (4.4-11.0)
[2024-04-11 18:44] LABS: ALB/GLOB Ratio 1.1 RATIO (0.9-2.4); AST(SGOT) 22 U/L (15-37); Alanine Aminotransfer ALT/SGPT 41 U/L (13-56); Albumin, Serum 3.9 g/dL (3.2-5.0); Alkaline Phosphatase 89 U/L (45-117); Anion Gap 4 (5-15); BUN 15 mg/dL (7-18); BUN/Creat Ratio 13.9 RATIO (10-20); Calcium,Total 9.4 mg/dL (8.5-10.1); Chloride 108 mmol/L (98-107); Creatinine, Serum 1.08 mg/dL (0.55-1.02); EST Glomerular Filtration Rate 56 mL/min (>60); Est Glom Filt Rate - Afr Amer 67 mL/min (>60); Globulin 3.4 g/dL (2.2-4.2); Glucose 103 mg/dL (74-106); Potassium 3.9 mmol/L (3.5-5.1); Protein, Total 7.3 g/dL (6.4-8.2); Sodium Level 139 mmol/L (136-145)
== END | disposition home or self-care (01) ==
LOC: MFPLAB 14:44
PROVIDERS: PCP Family Medicine; Referring Provider Family Medicine; Visit Provider Family Medicine
DX: E66.01 Morbid (severe) obesity due to excess calories (principal); R60.9 Edema, unspecified
CPT/HCPCS: 36415; 80053; 83880; 84443; 85025

== ENCOUNTER → 2024-12-19 | Outpatient (CLI) | payer MEDICAID, SELFPAY ==
--- NOTE | 2024-12-19 12:51 | RAD_ITS ---
PROCEDURE: L/S SPINE MIN 4 VIEWS 12/19/2024 REASON FOR EXAM: LOW BACK INJURY TECHNIQUE: Procedure Code: [id number] Modality: DX Procedure: L/S SPINE MIN 4 VIEWS COMPARISON: None. FINDINGS: Anterolisthesis L4 on L5 by 8 mm from facet joint arthropathy. No spondylolysis. Multilevel degenerate changes predominantly at L4-L5 where there is disc space narrowing, facet joint arthropathy. No acute bony abnormalities. No soft tissue abnormalities. RAD/L/S Spine Min 4 Views IMPRESSION: Anterolisthesis L4 on L5 by 8 mm from facet joint arthropathy. No spondylolysis . Multilevel degenerate changes predominantly at L4-L5 where there is disc space narrowing, facet joint arthropathy. Reading Location: [id number]
--- OUTSIDE RECORDS SUMMARY | 2024-12-19 22:39 | XMS RPT_ITS | CCD ---
Author Organization [facility] Care Team Providers Care Substation Electrician Name Role Phone Tyron JUNIOR, Hayley Dhaliwal Unavailable DO Kimberly Hyman Primary Care Provider DO Kimberly Hyman Referring Provider MD Dioni Tiwari Attending Provider Dr. Joel Ku Attending Provider Winston SCHILLING, IRASEMA Esposito Attending Provider DO Kimberly Hyman Primary Care Provider DO Kimberly Hyman Referring Provider MD Dioni Tiwari Attending Provider Dr. Joel Ku Attending Provider DO Kimberly Hyman Primary Care Provider DO Kimberly Hyman Referring Provider Dr. Burak Wilcox Attending Provider Adry, Chalon Primary Care Unavailable Adry, Chalon Attending Unavailable Adry, Chalon Referring Unavailable Adry, Chalon Referring Unavailable Adry, Chalon Primary Care Unavailable Adry, Chalon Attending Unavailable Adry, Chalon Primary Care Unavailable Adry, Chalon Attending Unavailable Adry, Chalon Referring Unavailable Adry, Chalon Primary Care Unavailable Adry, Chalon Attending Unavailable Adry, Chalon Referring Unavailable Adry, Chalon Primary Care Unavailable Joel Ku Attending Unavailable Allergies Allergy Classification Reported Allergen(s) Allergy Type Date of Onset Reaction(s) Facility (1 source) ketorolac Drug Allergy 01-21-2017 [facility] (7 sources) lisinopril Drug Allergy 01-21-2017 [facility] (6 sources) amLODIPine Drug Allergy 12-31-[address] [facility] (6 sources) carvedilol Drug Allergy 12-31-[address] [facility] (6 sources) Coconut extract Drug Allergy 12-31-2021 [facility] (7 sources) Ketorolac; Translations: [ketorolac tromethamine] Drug Allergy 12-31-[address] [facility] (1 source) amLODIPine Drug Allergy 12-31-2022 [facility] (1 source) carvedilol Drug Allergy 12-31-2022 [facility] (1 source) Coconut extract Drug Allergy 12-31-2022 [facility] (1 source) Lisinopril Drug Allergy 12-31-2022 [facility] Medications Current Medications Medication Drug Class(es) Dates Sig (Normalized) Sig (Original) [id number] 200 actuat albuterol 0.09 mg/actuat metered dose inhaler (13 sources) beta2-Adrenergic Agonist Start: 11-29-2018 take 1 puff(s) by inhalation every six hours Albuterol Sulfate (Ventolin Hfa) 90 mcg/actuation HFA aerosol inhaler Active 2 PUFF INHALATION EVERY 6 HOURS November 29, 2018 12:00am Start: 03-02-2017 End: 11-29-2018 take 1 puff(s) by inhalation every six hours as needed Albuterol Sulfate Discontinued 1 - 2 PUFF INHALATION EVERY 6 HOURS NEEDED March 02, 2017 1:00am November 29, 2018 1:36pm Start: 01-21-2017 take 2 puff(s) by mo uth every four to six hours as needed VENTOLIN HFA 108 (90 Base) MCG/ACT AERS Inhale 2 puffs by mouth every 4-6 hours as needed ALBUTEROL SULFATE [id number] Louie Wen MD 24 hr buPROPion hydrochloride 150 mg extended release oral tablet (12 sources) Aminoketone Start: 12-31-2021 take 300 mg by mouth once daily Bupropion Hcl Active 300 MG PO DAILY December 31, 2021 11:07am Start: 06-19-2020 End: 12-31-2021 take 150 mg by mouth once daily Bupropion Hcl Discontinued 150 MG PO DAILY June 19, 2020 12:00am December 31, 2021 11:10am 120 actuat fluticasone propionate 0.11 mg/actuat metered dose inhaler (13 sources) Corticosteroid Start: 11-29-2018 take 1 puff(s) by inhalation twice daily Fluticasone Propionate (Flovent Hfa) 110 mcg/actuation HFA aerosol inhaler Active 1 PUFF INHALATION TWICE A DAY November 29, 2018 12:00am Start: 03-02-2017 End: 11-29-2018 take 100 ug by inhalation twice daily Fluticasone Propionate Discontinued 100 MCG INHALATION TWICE A DAY March 02, 2017 1:00am November 29, 2018 1:32pm Start: 01-21-2017 take 2 puff(s) by mo uth twice daily FLOVENT HFA 110 MCG/ACT AERO Inhale 2 puffs by mouth twice daily FLUTICASONE PROPIONATE HFA [id number] Louie Wen MD hydroCHLOROthiazide 12.5 mg / losartan potassium 50 mg oral tablet (7 sources) Thiazide Diuretic, Angiotensin 2 Receptor Stone Start: 03-02-2017 Losartan-Hydrochlorothiazide Active 1 EACH PO DAILY March 02, 2017 1:00am Start: 01-21-2017 take 1 tablet by hoa once daily HYZAAR 50-12.5 MG TABS One tablet by mouth daily LOSARTAN POTASSIUM-HCTZ [id number] Louie Wen MD levocetirizine dihydrochloride 5 mg oral tablet (6 sources) Histamine-1 Receptor Antagonist Start: 12-06-2019 take 5 mg by mouth once daily Levocetirizine Active 5 MG PO DAILY December 06, 2019 12:00am levothyroxine sodium 0.025 mg oral capsule (12 sources) l-Thyroxine Start: 11-29-2018 take 1 capsule by mouth once daily levothyroxine 25 mcg capsule Active 25 MCG PO DAILY November 29, 2018 12:00am Start: 03-31-2018 End: 11-29-2018 take 25 ug by mouth once daily Levothyroxine Discontin ued 25 MCG PO DAILY March 31, 2018 1:00am November 29, 2018 1:34pm meloxicam 7.5 mg oral tablet (12 sources) Nonsteroidal Anti-inflammatory Drug Start: 12-31-2021 take 7.5 mg by mouth twice daily Meloxicam Active 7.5 MG PO TWICE A DAY December 31, 2021 11:08am Start: 11-29-2018 End: 12-31-2021 take 7.5 mg by mouth once daily Meloxicam Discontinued 7.5 MG PO DAILY November 29, 2018 12:00am December 31, 2021 11:10am montelukast 10 mg oral tablet (7 sources) Leukotriene Receptor Antagonist Start: 11-29-2018 take 10 mg by mouth once daily in the evening Montelukast Active 10 MG PO EVERY EVENING November 29, 2018 12:00am Start: 01-21-2017 take 1 tablet by hoa th once daily MONTELUKAST SODIUM 10 MG TABS One tablet by mouth daily MONTELUKAST SODIUM [id number] Louie Wen MD pantoprazole 40 mg delayed release oral tablet (6 sources) Proton Pump Inhibitor Start: 05-01-2018 take 40 mg by mouth once daily Pantoprazole Active 40 MG PO DAILY May 01, 2018 1:00am polyethylene glycol 3350 77664 mg powder for oral solution (12 sources) Osmotic Laxative Start: 06-22-2020 take 17 g by mouth once daily Polyethylene Glycol 3350 Active 17 GM PO DAILY June 22, 2020 12:00am Start: 03-02-2017 End: 11-29-2018 take 17 g by mouth every other day Polyethylene Glycol 3350 Discontinued 17 GM PO EVERY OTHER DAY March 02, 2017 1:00am November 29, 2018 1:38pm spironolactone 25 mg oral tablet (6 sources) Aldosterone Antagonist Start: 12-06-2019 take 25 mg by mouth once daily Spironolactone Active 25 MG PO DAILY December 06, 2019 12:00am venlafaxine 37.5 mg oral tablet (7 sources) Serotonin and Norepinephrine Reuptake Inhibitor Start: 03-02-2017 take 37.5 mg by mouth once daily Venlafaxine Active 37.5 MG PO DAILY March 02, 2017 1:00am Start: 01-21-2017 take 1 tablet by hoa th once daily VENLAFAXINE HCL ER 37.5 MG [id number]-HKT One tablet by mouth daily VENLAFAXINE HCL [id number] Louie Wen MD Completed/Discontinued Medications Medication Drug Class(es) Dates Sig (Normalized) Sig (Original) acetaminophen 325 mg / oxyCODONE hydrochloride 5 mg oral tablet (6 sources) Opioid Agonist Start: 06-25-2020 End: 06-30-2020 take 1 tablet by mouth every six hours as needed Oxycodone-Acetamin ophen Discontinued 1 - 2 TABLET PO EVERY 6 HOURS NEEDED 28 08June 25, 2020 June 30, 2020 12:04am cetirizine hydrochloride 10 mg oral tablet (7 sources) Histamine-1 Receptor Antagonist Start: 01-21-2017 take 1 tablet by mouth once daily CETIRIZINE HCL 10 MG TABS One tablet by mouth daily CETIRIZINE HCL [id number] Louie Wen MD Start: 12-01-2016 End: 12-06-2019 take 10 mg by mouth once daily Cetirizine Discontinued 10 MG PO DAILY December 01, 2016 12:00am December 06, 2019 1:36pm cholecalciferol 1000 unt oral tablet (7 sources) Vitamin D Start: 01-21-2017 take 1 tablet by mouth once daily VITAMIN D3 1000 UNIT TABS One tablet by mouth daily CHOLECALCIFEROL [id number] Louie Wen MD Start: 06-10-2013 End: 11-29-2018 take 5000 [IU] by mouth once daily Cholecalciferol (Vitamin D3) Discontinued 5000 UNIT PO DAILY June 10, 2013 1:00am November 29, 2018 1:37pm doxycycline monohydrate 100 mg oral capsule (6 sources) Tetracycline-class Drug Start: 12-14-2019 End: 06-19-2020 take 100 mg by mouth twice daily Doxycycline Monohydrate Discontinued 100 MG PO TWICE A DAY December 14, 2019 12:00am June 19, 2020 2:39pm escitalopram 10 mg oral tablet (1 source) Serotonin Reuptake Inhibitor Start: 01-21-2017 take 1 tablet by mouth once daily ESCITALOPRAM OXALATE 10 MG TABS One tablet by mouth daily ESCITALOPRAM OXALATE [id number] Louie Wen MD etodolac 500 mg oral tablet (2 sources) Nonsteroidal Anti-inflammatory Drug Start: 08-13-2022 End: 12-31-2022 take 500 mg by mouth twice daily Etodolac Discontinued 500 MG PO TWICE A DAY August 13, 2022 12:00am December 31, 2022 10:01am Do not take in conjunction with other NSAIDs including meloxicam/mobic. Tylenol is okay. hydroCHLOROthiazide 12.5 mg oral capsule (6 sources) Thiazide Diuretic Start: 11-29-2018 End: 12-06-2019 take 12.5 mg by mouth once daily Hydrochlorothiazide Discontinued 12.5 MG PO DAILY November 29, 2018 12:00am December 06, 2019 1:36pm lansoprazole 30 mg delayed release oral capsule (1 source) Proton Pump Inhibitor Start: 01-21-2017 take 1 tablet by mouth once daily LANSOPRAZOLE 30 MG CPDR One tablet by mouth daily LANSOPRAZOLE [id number] Louie Wen MD medroxyPROGESTERone acetate 10 mg oral tablet (6 sources) Progestin Start: 12-29-2019 End: 01-22-2022 take 1 tablet by mouth once daily Medroxyprogesterone (Provera) 10 mg tablet Discontinued 10 MG PO DAILY December 29, 2019 12:00am January 22, 2022 10:31am MULTIPLE VITAMIN (1 source) Start: 01-21-2017 take 1 tablet by mouth once daily DAILY VALUE MULTIVITAMIN TABS One tablet by mouth daily MULTIPLE VITAMIN [id number] Louie Wen MD Multivitamin With Folic Acid (6 sources) Start: 06-10-2013 End: 11-29-2018 take 1 tablet by mouth once daily Multivitamin With Folic Acid Discontinued 1 TABLET PO DAILY June 10, 2013 1:00am November 29, 2018 1:38pm norethindrone acetate 5 mg oral tablet (5 sources) Start: 01-22-2022 End: 03-10-2022 take 1 tablet by mouth three times daily, then take 1 tablet by mouth twice daily Norethindrone Acetate (Aygestin) 5 mg tablet Discontinued 5 MG PO .COMPLEX 45 January 22, 2022 12:00am March 10, 2022 2:48pm 5 mg PO tid until bleeding stops X 24 hr then bid to finish Rx POLYETHYLENE GLYCOL 3350 (1 source) Start: 01-21-2017 MIRALAX POWD Use as directed POLYETHYLENE GLYCOL 3350 [id number] Louie Wen MD predniSONE 5 mg oral tablet (6 sources) Start: 06-28-2020 End: 12-31-2021 prednisone 5 mg tablets in a dose pack Discontinued 0 PO per package directions June 28, 2020 12:00am December 31, 2021 11:09am PO PER PKG DIR sucralfate 1000 mg oral tablet (6 sources) Aluminum Complex Start: 06-19-2020 End: 12-31-2021 take 1 g by mouth at bedtime Sucralfate Discontinued 1 GM PO before meals and at bedtime June 19, 2020 12:00am December 31, 2021 11:09am traMADol hydrochloride 50 mg oral tablet (6 sources) Opioid Agonist Start: 05-01-2018 End: 05-04-2018 take 50 mg by mouth every six hours Tramadol Discontinued 50 MG PO EVERY 6 HOURS 12 3 May 01, 2018 1:00am May 04, 2018 1:09am Problems Active Problems Problem Classification Problem Date Documented Date Episodic/Chronic Anxiety disorders (1 source) Anxiety; Translations: [Anxiety disorder, unspecified] Onset: 01-21-2017 01-21-2017 Chronic Asthma (1 source) Asthma; Translations: [Unspecified asthma, uncomplicated] Onset: 01-21-2017 01-21-2017 Chronic Chronic obstructive pulmonary disease and bronchiectasis (1 source) Chronic obstructive lung disease; Translations: [Chronic obstructive pulmonary disease, unspecified] Onset: 01-21-2017 01-21-2017 Chronic Esophageal disorders (1 source) Gastroesophageal reflux disease; Translations: [Gastro-esophageal reflux disease without esophagitis] Onset: 01-21-2017 01-21-2017 Chronic Essential hypertension (2 sources) Hypertensive disorder; Translations: [Essential (primary) hypertension] Onset: 01-21-2017 01-21-2017 Chronic Menopausal disorders (13 sources) Postmenopausal bleeding; Translations: [Postmenopausal bleeding] Chronic Mood disorders (1 source) Depressive disorder; Translations: [Major depressive disorder, single episode, unspecified] Onset: 01-21-2017 01-21-2017 Chronic Osteoarthritis (6 sources) Arthritis; Translations: [Osteoarthritis of left knee joint] Onset: 01-21-2017 01-21-2017 Chronic Other connective tissue disease (12 sources) Trochanteric bursitis; Translations: [Trochanteric bursitis, left hip] 12-31-2021 Episodic Other connective tissue disease (4 sources) Trochanteric bursitis, left hip; Translations: [Enthesopathy of hip region] Episodic Other connective tissue disease (4 sources) Trochanteric bursitis, right hip; Translations: [Enthesopathy of hip region] Episodic Other connective tissue disease (2 sources) Bursitis of knee; Translations: [Other bursitis of knee, unspecified knee] 08-13-2022 Episodic Other connective tissue disease (2 sources) Synovial cyst of left popliteal space; Translations: [Synovial cyst of popliteal space [Nichole], left knee] 08-07-2022 Episodic Other connective tissue disease (1 source) Other bursitis of knee, unspecified knee; Translations: [Pes anserinus tendinitis or bursitis] 12-31-2022 Episodic Other connective tissue disease (1 source) Synovial cyst of popliteal space [Nichole], left knee; Translations: [Synovial cyst of popliteal space] 12-31-2022 Episodic Other female genital disorders (6 sources) Disorder of uterine cervix; Translations: [Other specified noninflammatory disorders of cervix uteri] 12-31-2021 Episodic Other female genital disorders (6 sources) History of abnormal cervical Papanicolaou smear ; Translations: [Personal history of other diseases of the female genital tract] 12-31-2021 Episodic Other non-traumatic joint disorders (12 sources) Hip pain; Translations: [Pain in left hip] 12-31-2021 Episodic Other non-traumatic joint disorders (3 sources) Pain in left hip; Translations: [Pain in joint, pelvic region and thigh] Episodic Other non-traumatic joint disorders (3 sources) Pain in right hip; Translations: [Pain in joint, pelvic region and thigh] Episodic Other nutritional; endocrine; and metabolic disorders (2 sources) Obesity; Translations: [Obesity, unspecified] 08-13-2022 Chronic Other nutritional; endocrine; and metabolic disorders (1 source) Obesity, unspecified; Translations: [Obesity, unspecified] 12-31-2022 Chronic Other nutritional; endocrine; and metabolic disorders (1 source) Morbid (severe) obesity due to excess calories; Translations: [Morbid (severe) obesity due to excess calories] Onset: 05-05-2024 Chronic Other upper respiratory disease (1 source) Allergic rhinitis; Translations: [Allergic rhinitis, unspecified] Onset: 01-21-2017 01-21-2017 Chronic Sprains and strains (6 sources) Strain of knee; Translations: [Strain of unspecified muscle(s) and tendon(s) at lower leg level, left leg, initial encounter] 06-26-2022 Episodic Unclassified (2 sources) Abnormal cytology findings; Translations: [Encounter for screening mammogram for malignant neoplasm of breast] Onset: 02-10-2017 02-10-2017 Episodic Past or Other Problems Problem Classification Problem Date Documented Date Episodic/Chronic Cardiac dysrhythmias (1 source) Bradycardia, unspecified; Translations: [Bradycardia, unspecified] Onset: Episodic Hemorrhoids (1 source) Hemorrhoids; Translations: [Unspecified hemorrhoids] Onset: 7 01-21-2017 Episodic Nonmalignant breast conditions (2 sources) Microcalcifications of the breast; Translations: [Bloody nipple discharge] Onset: 7 01-21-2017 Episodic Results Test Name Value Interpretation Reference Range Facility BNP,B-Type NATRIURETIC PEPTI Anita 04-11-2024 Natriuretic peptide B (Bld) [Mass/Vol] 63.0 pg/mL Normal 0-100 [facility] Comment on above: Performed By: #### L 100.0100, L503.6620, L500.4050, [id number] #### [facility] [address] [place], [address] CBC W/Diff, Automatedon Absolute Lymph 3.85 X10 3/uL Normal 0.83-4.51 [facility] Comment on above: Performed By: #### L 100.0100, L503.6620, L500.4050, [id number] #### [facility] [address] [place], [address] Absolute Neut 3.6 X10 3/uL Normal 2.0-7.7 [facility] Comment on above: Performed By: #### L 100.0100, L503.6620, L500.4050, [id number] #### [facility] [address] [place], [address] Basophils/100 WBC (Bld) 0.7 % Normal 0-1 [facility] Comment on above: Performed By: #### L 100.0100, L503.6620, L500.4050, [id number] #### [facility] [address] [place], [address] Eosinophils/100 WBC (Bld) 1.0 % Normal 0-5 [facility] Comment on above: Performed By: #### L 100.0100, L503.6620, L500.4050, [id number] #### [facility] [address] [place], [address] Erythrocyte distribution width (RBC) [Ratio] 12.9 % Normal 11.6-14.6 [facility] Comment on above: Performed By: #### L 100.0100, L503.6620, L500.4050, [id number] #### [facility] [address] [place], [address] Hematocrit (Bld) [Volume fraction] 39.7 % Normal 37-47 [facility] Comment on above: Performed By: #### L 100.0100, L503.6620, L500.4050, [id number] #### [facility] [address] [place], [address] Hemoglobin (Bld) [Mass/Vol] 12.9 g/dL Normal 12.0-15.0 [facility] Comment on above: Performed By: #### L 100.0100, L503.6620, L500.4050, [id number] #### [facility] [address] [place], [address] IG% 0.400 Normal 0.0-0.9 [facility] Comment on above: Result Comment: IG% - Immature Granulocytes (promyelocytes, myelocytes and metamyelocytes) > 1% indicates that a LEFT SHIFT is Present. Performed By: #### L 100.0100, L503.6620, L500.4050, [id number] #### [facility] [address] [place], [address] Lymphocytes/100 WBC (Bld) 47.8 % High 19-41 [facility] Comment on above: Performed By: #### L 100.0100, [id number], L500.4050, [id number] #### [facility] [address] [place], [address] MCH (RBC) [Entitic mass] 30.6 pg Normal 27.0-32.0 [facility] Comment on above: Performed By: #### L 100.0100, [id number], L500.4050, [id number] #### [facility] [address] [place], [address] MCHC (RBC) [Mass/Vol] 32.5 g/dL Normal 32-36 [facility] Comment on above: Performed By: #### L 100.0100, [id number], L500.4050, [id number] #### [facility] [address] [place], [address] MCV (RBC) [Entitic vol] 94.1 fL Normal 81-99 [facility] Comment on above: Performed By: #### L 100.0100, [id number], L500.4050, [id number] #### [facility] [address] [place], [address] Monocytes/100 WBC (Bld) 4.8 % Normal 0-10 [facility] Comment on above: Performed By: #### L 100.0100, L503.6620, L500.4050, [id number] #### [facility] [address] [place], [address] Neutrophils/100 WBC (Bld) 45.3 % Low 47-70 [facility] Comment on above: Performed By: #### L 100.0100, [id number], L500.4050, [id number] #### [facility] [address] [place], [address] Nucleated RBC (Bld) [#/Vol] 0 10*3/uL Normal 0-5 [facility] Comment on above: Performed By: #### L 100.0100, L503.6620, L500.4050, [id number] #### [facility] [address] [place], [address] Platelet mean volume (Bld) [Entitic vol] 11.4 fL Normal 6.2-12.0 [facility] Comment on above: Performed By: #### L 100.0100, L503.6620, L500.4050, [id number] #### [facility] [address] [place], [address] Platelets (Bld) [#/Vol] 305 10*3/uL Normal 150-450 [facility] Comment on above: Performed By: #### L 100.0100, L503.6620, L500.4050, [id number] #### [facility] [address] [place], [address] RBC (Bld) [#/Vol] 4.22 10*6/uL Normal 4.2-5.4 [facility] Comment on above: Performed By: #### L 100.0100, L503.6620, L500.4050, [id number] #### [facility] [address] [place], [address] RDW SD 44.6 fl High 35.1-43.9 [facility] Comment on above: Performed By: #### L 100.0100, L503.6620, L500.4050, [id number] #### [facility] [address] [place], [address] WBC (Bld) [#/Vol] 8.1 10*3/uL Normal 4.4-11.0 [facility] Comment on above: Performed By: #### L 100.0100, L503.6620, L500.4050, [id number] #### [facility] [address] [place], [address] Comprehensive Metabolic Prof [facility] 04-11-2024 Albumin [Mass/Vol] 3.9 g/dL Normal 3.2-5.0 [facility] Comment on above: Performed By: #### L 100.0100, L503.6620, L500.4050, [id number] #### [facility] [address] [place], [address] Albumin/Globulin [Mass ratio] 1.1 {ratio} Normal 0.9-2.4 [facility] Comment on above: Performed By: #### L 100.0100, L503.6620, L500.4050, [id number] #### [facility] [address] [place], [address] ALK P 89 U/L Normal 45-117 [facility] Comment on above: Performed By: #### L 100.0100, [id number], L500.4050, [id number] #### [facility] [address] [place], [address] ALT [Catalytic activity/Vol] 41 U/L Normal 13-56 [facility] Comment on above: Performed By: #### L 100.0100, L503.6620, L500.4050, [id number] #### [facility] [address] [place], [address] AST [Catalytic activity/Vol] 22 U/L Normal 15-37 [facility] Comment on above: Performed By: #### L 100.0100, L503.6620, L500.4050, [id number] #### [facility] [address] [place], [address] Bilirubin [Mass/Vol] 0.70 mg/dL Normal 0.20-1.00 [facility] Comment on above: Result Comment: For patients on eltrombopag therapy, use of Dimension [place] TBIL is not recommended. Performed By: #### L 100.0100, L503.6620, L500.4050, [id number] #### [facility] [address] [place], [address] BUN/CRE 13.9 RATIO Normal 10-20 [facility] Comment on above: Performed By: #### L 100.0100, L503.6620, L500.4050, [id number] #### [facility] [address] [place], [address] CA,Total 9.4 mg/dL Normal 8.5-10.1 [facility] Comment on above: Performed By: #### L 100.0100, L503.6620, L500.4050, L501.9520 #### [facility] [address] [place], [address] Chloride [Moles/Vol] 108 mmol/L High 98-107 [facility] Comment on above: Performed By: #### L 100.0100, L503.6620, L500.4050, L501.9520 #### [facility] [address] [place], [address] CO2 [Moles/Vol] 27.0 mmol/L Normal 21.0-32.0 [facility] Comment on above: Performed By: #### L 100.0100, L503.6620, L500.4050, L501.9520 #### [facility] [address] [place], [address] Creatinine [Mass/Vol] 1.08 mg/dL High 0.55-1.02 [facility] Comment on above: Result Comment: The validity of the calculated GFR GFRAA in patients over 70 years has not been determined. Clinical correlation is essential. Performed By: #### L 100.0100, L503.6620, L500.4050, L501.9520 #### [facility] [address] [place], [address] EST GFR - AA 67 mL/min Normal >60 [facility] Comment on above: Result Comment: Afri can Tajik GFR Calc Performed By: #### L 100.0100, L503.6620, L500.4050, L501.9520 #### [facility] [address] [place], [address] GAP 4 Low 5-15 [facility] Comment on above: Performed By: #### L 100.0100, L503.6620, L500.4050, L501.9520 #### [facility] [address] [place], [address] GFR/1.73 sq M.predicted among non-blacks MDRD (S/P/Bld) [Vol rate/Area] 56 mL/min/{1.73_m2} Low >60 [facility] Comment on above: Result Comment: Non- GFR Calc Performed By: #### L 100.0100, L503.6620, L500.4050, L501.9520 #### [facility] [address] [place], [address] Globulin (S) [Mass/Vol] 3.4 g/dL Normal 2.2-4.2 [facility] Comment on above: Performed By: #### L 100.0100, L503.6620, L500.4050, L501.9520 #### [facility] [address] [place], [address] Glucose [Mass/Vol] 103 mg/dL Normal 74-106 [facility] Comment on above: Result Comment: Fast ing Glucose result from 100 to 125 mg/dL suggests IMPAIRED HOMEOSTASIS per A.D.A. criteria. Performed By: #### L 100.0100, L503.6620, L500.4050, L501.9520 #### [facility] [address] [place], [address] Potassium [Moles/Vol] 3.9 mmol/L Normal 3.5-5.1 [facility] Comment on above: Performed By: #### L 100.0100, L503.6620, L500.4050, L501.9520 #### [facility] [address] [place], [address] Sodium [Moles/Vol] 139 mmol/L Normal 136-145 [facility] Comment on above: Performed By: #### L 100.0100, L503.6620, L500.4050, L501.9520 #### [facility] [address] [place], [address] T PROT 7.3 g/dL Normal 6.4-8.2 [facility] Comment on above: Performed By: #### L 100.0100, L503.6620, L500.4050, L501.9520 #### [facility] [address] [place], [address] Urea nitrogen [Mass/Vol] 15 mg/dL Normal 7-18 [facility] Comment on above: Performed By: #### L 100.0100, L503.6620, L500.4050, L501.9520 #### [facility] [address] [place], [address] Thyroid Stim Hormone (TSH)on 04-11-2024 TSH 1.960 uIU/mL Normal 0.358-3.740 [facility] Comment on above: Performed By: #### L 100.0100, L503.6620, L500.4050, L501.9520 #### [facility] [address] [place], [address] SCRN MAMM (CAD)W/GIANCARLO BILATo n 01-22-2024 SCRN MAMM (CAD)W/GIANCARLO BILAT [facility] Imaging Services [address] [place], [place] [address] SCRN MAMM (CAD)W/GIANCARLO BILAT MR#: [id number] Acct: [id number] Name: JOSUE WEINSTEIN Rep #: [id number] : 1965 F 58 From: Willis huffman MD PCP: Dr. Seema Rider MD Status: [facility] Study: SCRN MAMM (CAD)W/GIANCARLO BILAT Date of Exam: 01/04 11/27 Exam# [id number] Ordering Dr: Seema Rider MD -[id number] MAMMOGRAPHY - BILATERAL SCREENING REASON FOR EXAM: Female, 58 years old. Routine annual screening examination. PERTINENT HISTORY: Aunts with breast cancer. Prior left stereotactic breast biopsy. TECHNIQUE: Digital bilateral breast giancarlo (3D mammographic acquisition) in the CC and MLO projections. 2-D mediolateral oblique (MLO) and craniocaudad (CC) views of both breasts were obtained. CAD: Full Field Digital Mammography with Computer Added Detection was performed. COMPARISON: Comparison is made with prior study dated December 30, 2022 and December 26, 2021. FINDINGS: Breast Composition: The breasts are heterogeneously dense, which may obscure small masses. Stable partially calcified 1.6 cm x 0.9 cm nodule at the biopsy site with peripheral calcification suggestive of a fibroadenoma. Once again, a tissue clip marker is seen in the slightly upper lateral aspect of the left breast. Stable fat-containing left axillary lymph node. No other significant abnormalities are identified. There has been no significant change since the prior study. BI/SCRN MAMM (CAD)W/GIANCARLO BILAT IMPRESSION: Stable bilateral screening mammogram. Yearly follow-up mammogram recommended. (A) ASSESSMENT CATEGORY: BIRADS Category 2: Benign. A letter regarding these results will be sent to the patient by the facility within 30 days. Approximately 10% of breast cancers are not detected by mammography. A normal mammogram should not delay biopsy of a clinically suspicious abnormality. [id number] Electronically Signed: Willis Hicks MD at 10:18 EDT Reading Location ID and State: [facility] / [place] , Service support , CC: Dr. Seema Rider MD Self Pay Representative: Signed Normal [facility] Echo Completeon 12-17-2023 Echo [facility] [address] [place] [address]. [place] [address] Echo Complete 12/17/23 1508 MR#: [id number] Acct: [id number] Name: JOSUE WEINSTEIN Rep #: [id number] : 1965 58 From: Joel Ku MD Attending Dr: Dr. Seema Rider MD Status: [facility] SOUZA Ordering Dr: Seema Rider MD Date: 12/17/23 Location: [facility] Sex: F C Admitted: Reason For Study: Bradycardia Procedure This was a 2D Doppler, Color Flow transthoracic echocardiogram. Exam performed in department. Left Ventricle Normal LV size. Left ventricular systolic function is normal. The estimated ejection fraction is 60 %. No regional wall motion abnormalities noted. Right Ventricle Normal RV size. Normal systolic function. Mitral Valve Normal mitral valve. Tricuspid Valve Normal tricuspid valve. Mild tricuspid valve insufficiency. Aortic Valve Normal aortic valve. Pulmonic Valve Normal pulmonic valve. Great Vessels Normal aortic root. The pulmonary artery is normal size. Inferior vena cava collapse with respiration. Pericardium/Pleural No pericardial effusion. MMode/2D Measurements Calculations LVIDd: 5.2 cm IVSd: 1.1 cm LVOT diam: 2.0 cm LVIDs: 3.7 cm LVPWd: 1.0 cm LVOT area: 3.2 cm2 FS: 29.8 % Ao root diam: 3.1 cm LAV(MOD-bp): 59.3 ml Ao sinus diam: 3.2 cm LAV(MOD-bp) Indexed: 25.8 ml/m2 LAV(MOD-sp2): 66.2 ml LAV(MOD-sp4): 57.[address] [place]unction: 2.6 cm LA A4 area: 19.1 cm2 LA dimension(2D): 4.3 cm TAPSE: 2.5 cm RA A4 area: 16.3 cm2 Time Measurements MV dec time: 0.19 sec Doppler Measurements Calculations MV E max mitchell: 91.3 cm/sec Lat Peak E' Mitchell: 12.8 cm/sec Med Peak E' Mitchell: 10.9 cm/sec MV A max mitchell: 87.8 cm/sec E/E' lat: 7.1 E/E' med: 8.3 MV E/A: 1.0 MV V2 max: 122.4 cm/sec MV P1/2t max mitchell: 123.4 cm/sec Ao V2 max: 153.1 cm/sec MV max P.0 mmHg MV P1/2t: 77.6 msec Ao max P.4 mmHg MV V2 mean: 71.2 cm/sec MV dec slope: 465.8 cm/sec2 LONA(V,D): 2.7 cm2 MV mean P.4 mmHg MV V2 VTI: 34.6 cm MVA(P1/2t): 2.8 cm2 LV V1 max: 129.6 cm/sec PA V2 max: 78.6 cm/sec TR max mitchell: 168.3 cm/sec LV V1 max P.7 mmHg TR max P.3 mmHg ECHO/Echo Complete Interpretation Summary Normal LV size. Left ventricular systolic function is normal. The estimated ejection fraction is 60 %. Structurally normal valves. __ Ordering Physician: Seema Rider Referring Physician: Seema Rider Performed By: Tigre Carrera, MARY ELLEN 12/17/23 1640 Date Joel Ku MD CC: Dr. Seema Rider MD Date Dictated: 12/17/23 1508 Date Transcribed: 12/17/23 1640 Self Pay Representative: Signed Normal [facility] CBC W/Diff, Automatedon 09-04 Absolute Lymph 3.62 X10 3/uL Normal 0.83-4.51 [facility] Comment on above: Order Comment: Order Date: 09/22/23 Order Info: 0184-1 - CBCD Performed By: #### L 100.0100, L500.4050, L500.4100, L501.9985, L501.9520 #### [facility] [address] [place], [address] Absolute Neut 4.0 X10 3/uL Normal 2.0-7.7 [facility] Comment on above: Order Comment: Order Date: 09/22/23 Order Info: 0184- - CBCD Performed By: #### L 100.0100, L500.4050, L500.4100, L501.9985, L501.9520 #### [facility] [address] [place], [address] Basophils/100 WBC (Bld) 0.6 % Normal 0-1 [facility] Comment on above: Order Comment: Order Date: 09/22/23 Order Info: 0184-1 - CBCD Performed By: #### L 100.0100, L500.4050, L500.4100, L501.9985, L501.9520 #### [facility] [address] [place], [address] Eosinophils/100 WBC (Bld) 0.7 % Normal 0-5 [facility] Comment on above: Order Comment: Order Date: 09/22/23 Order Info: 0184-1 - CBCD Performed By: #### L 100.0100, L500.4050, L500.4100, L501.9985, L501.9520 #### [facility] [address] [place], [address] Erythrocyte distribution width (RBC) [Ratio] 12.8 % Normal 11.6-14.6 [facility] Comment on above: Order Comment: Order Date: 09/22/23 Order Info: 0184- - CBCD Performed By: #### L 100.0100, L500.4050, L500.4100, L501.9985, L501.9520 #### [facility] [address] [place], [address] Hematocrit (Bld) [Volume fraction] 41.2 % Normal 37-47 [facility] Comment on above: Order Comment: Order Date: 09/22/23 Order Info: 0184- - CBCD Performed By: #### L 100.0100, L500.4050, L500.4100, L501.9985, L501.9520 #### [facility] [address] [place], [address] Hemoglobin (Bld) [Mass/Vol] 13.4 g/dL Normal 12.0-15.0 [facility] Comment on above: Order Comment: Order Date: 09/22/23 Order Info: 0184- - CBCD Performed By: #### L 100.0100, L500.4050, L500.4100, L501.9985, L501.9520 #### [facility] [address] [place], [address] IG% 0.200 Normal 0.0-0.9 [facility] Comment on above: Order Comment: Order Date: 09/22/23 Order Info: 0184- - CBCD Result Comment: IG% - Immature Granulocytes (promyelocytes, myelocytes and metamyelocytes) > 1% indicates that a LEFT SHIFT is Present. Performed By: #### L 100.0100, L500.4050, L500.4100, L501.9985, L501.9520 #### [facility] [address] [place], [address] Lymphocytes/100 WBC (Bld) 44.2 % High 19-41 [facility] Comment on above: Order Comment: Order Date: 09/22/23 Order Info: 0184- - CBCD Performed By: #### L 100.0100, L500.4050, L500.4100, L501.9985, L501.9520 #### [facility] [address] [place], [address] MCH (RBC) [Entitic mass] 30.5 pg Normal 27.0-32.0 [facility] Comment on above: Order Comment: Order Date: 09/22/23 Order Info: 0184- - CBCD Performed By: #### L 100.0100, L500.4050, L500.4100, L501.9985, L501.9520 #### [facility] [address] [place], [address] MCHC (RBC) [Mass/Vol] 32.5 g/dL Normal 32-36 [facility] Comment on above: Order Comment: Order Date: 09/22/23 Order Info: 0184- - CBCD Performed By: #### L 100.0100, L500.4050, L500.4100, L501.9985, L501.9520 #### [facility] [address] [place], [address] MCV (RBC) [Entitic vol] 93.8 fL Normal 81-99 [facility] Comment on above: Order Comment: Order Date: 09/22/23 Order Info: 0184- - CBCD Performed By: #### L 100.0100, L500.4050, L500.4100, L501.9985, L501.9520 #### [facility] [address] [place], [address] Monocytes/100 WBC (Bld) 5.3 % Normal 0-10 [facility] Comment on above: Order Comment: Order Date: 09/22/23 Order Info: 0184-1 - CBCD Performed By: #### L 100.0100, L500.4050, L500.4100, L501.9985, L501.9520 #### [facility] [address] [place], [address] Neutrophils/100 WBC (Bld) 49.0 % Normal 47-70 [facility] Comment on above: Order Comment: Order Date: 09/22/23 Order Info: 018- - CBCD Performed By: #### L 100.0100, L500.4050, L500.4100, L501.9985, L501.9520 #### [facility] [address] [place], [address] Nucleated RBC (Bld) [#/Vol] 0 10*3/uL Normal 0-5 [facility] Comment on above: Order Comment: Order Date: 09/22/23 Order Info: 0184- - CBCD Performed By: #### L 100.0100, L500.4050, L500.4100, L501.9985, L501.9520 #### [facility] [address] [place], [address] Platelet mean volume (Bld) [Entitic vol] 10.9 fL Normal 6.2-12.0 [facility] Comment on above: Order Comment: Order Date: 09/22/23 Order Info: 0184- - CBCD Performed By: #### L 100.0100, L500.4050, L500.4100, L501.9985, L501.9520 #### [facility] [address] [place], [address] Platelets (Bld) [#/Vol] 350 10*3/uL Normal 150-450 [facility] Comment on above: Order Comment: Order Date: 09/22/23 Order Info: 0184- - CBCD Performed By: #### L 100.0100, L500.4050, L500.4100, L501.9985, L501.9520 #### [facility] [address] [place], [address] RBC (Bld) [#/Vol] 4.39 10*6/uL Normal 4.2-5.4 [facility] Comment on above: Order Comment: Order Date: 09/22/23 Order Info: 0184- - CBCD Performed By: #### L 100.0100, L500.4050, L500.4100, L501.9985, L501.9520 #### [facility] [address] [place], [address] RDW SD 44.5 fl High 35.1-43.9 [facility] Comment on above: Order Comment: Order Date: 09/22/23 Order Info: 0184- - CBCD Performed By: #### L 100.0100, L500.4050, L500.4100, L501.9985, L501.9520 #### [facility] [address] [place], [address] WBC (Bld) [#/Vol] 8.2 10*3/uL Normal 4.4-11.0 [facility] Comment on above: Order Comment: Order Date: 09/22/23 Order Info: 0184-1 - CBCD Performed By: #### L 100.0100, L500.4050, L500.4100, L501.9985, L501.9520 #### [facility] [address] [place], [address] Comprehensive Metabolic Prof ilon 09-22-2023 Albumin [Mass/Vol] 4.1 g/dL Normal 3.2-5.0 [facility] Comment on above: Order Comment: Order Date: 09/22/23 Order Info: 07- - CMP Order Info: [id number] - LIPID Order Info: 3 - TSH Performed By: #### L 100.0100, L500.4050, L500.4100, L501.9985, L501.9520 #### [facility] [address] [place], [address] Albumin/Globulin [Mass ratio] 1.1 {ratio} Normal 0.9-2.4 [facility] Comment on above: Order Comment: Order Date: 09/22/23 Order Info: 785-04 - CMP Order Info: - LIPID Order Info: 3015-06 - TSH Performed By: #### L 100.0100, L500.4050, L500.4100, L501.9985, L501.9520 #### [facility] [address] [place], [address] ALK P 124 U/L High 45-117 [facility] Comment on above: Order Comment: Order Date: 09/22/23 Order Info: 0786 - CMP Order Info: [id number] - LIPID Order Info: 3015-06 - TSH Performed By: #### L 100.0100, L500.4050, L500.4100, L501.9985, L501.9520 #### [facility] [address] [place], [address] ALT [Catalytic activity/Vol] 45 U/L Normal 13-56 [facility] Comment on above: Order Comment: Order Date: 09/22/23 Order Info: 0786 - CMP Order Info: [id number] - LIPID Order Info: 3 - TSH Performed By: #### L 100.0100, L500.4050, L500.4100, L501.9985, L501.9520 #### [facility] [address] [place], [address] AST [Catalytic activity/Vol] 27 U/L Normal 15-37 [facility] Comment on above: Order Comment: Order Date: 09/22/23 Order Info: 785- - CMP Order Info: [id number] - LIPID Order Info: 3 - TSH Performed By: #### L 100.0100, L500.4050, L500.4100, L501.9985, L501.9520 #### [facility] [address] [place], [address] Bilirubin [Mass/Vol] 0.70 mg/dL Normal 0.20-1.00 [facility] Comment on above: Order Comment: Order Date: 09/22/23 Order Info: 785-04 - CMP Order Info: - LIPID Order Info: 3 - TSH Result Comment: For patients on eltrombopag therapy, use of Dimension [place] TBIL is not recommended. Performed By: #### L 100.0100, L500.4050, L500.4100, L501.9985, L501.9520 #### [facility] [address] [place], [address] BUN/CRE 16.2 RATIO Normal 10-20 [facility] Comment on above: Order Comment: Order Date: 09/22/23 Order Info: 785-04 - CMP Order Info: - LIPID Order Info: 3 - TSH Performed By: #### L 100.0100, L500.4050, L500.4100, L501.9985, L501.9520 #### [facility] [address] [place], [address] CA,Total 9.6 mg/dL Normal 8.5-10.1 [facility] Comment on above: Order Comment: Order Date: 09/22/23 Order Info: 785- - CMP Order Info: - LIPID Order Info: 3016-3 - TSH Performed By: #### L 100.0100, L500.4050, L500.4100, L501.9985, L501.9520 #### [facility] [address] [place], [address] Chloride [Moles/Vol] 106 mmol/L Normal 98-107 [facility] Comment on above: Order Comment: Order Date: 09/22/23 Order Info: 0786-1 - CMP Order Info: [id number] - LIPID Order Info: 3015-06 - TSH Performed By: #### L 100.0100, L500.4050, L500.4100, L501.9985, L501.9520 #### [facility] [address] [place], [address] CO2 [Moles/Vol] 27.0 mmol/L Normal 21.0-32.0 [facility] Comment on above: Order Comment: Order Date: 09/22/23 Order Info: 0786- - CMP Order Info: [id number] - LIPID Order Info: 3015-06 - TSH Performed By: #### L 100.0100, L500.4050, L500.4100, L501.9985, L501.9520 #### [facility] [address] [place], [address] Creatinine [Mass/Vol] 1.11 mg/dL High 0.55-1.02 [facility] Comment on above: Order Comment: Order Date: 09/22/23 Order Info: 0786- - CMP Order Info: [id number] - LIPID Order Info: 3015-06 - TSH Result Comment: The validity of the calculated GFR GFRAA in patients over 70 years has not been determined. Clinical correlation is essential. Performed By: #### L 100.0100, L500.4050, L500.4100, L501.9985, L501.9520 #### [facility] [address] [place], [address] EST GFR - AA 65 mL/min Normal >60 [facility] Comment on above: Order Comment: Order Date: 09/22/23 Order Info: 785-04 - CMP Order Info: - LIPID Order Info: 3015-06 - TSH Result Comment: Afri can Tajik GFR Calc Performed By: #### L 100.0100, L500.4050, L500.4100, L501.9985, L501.9520 #### [facility] [address] [place], [address] GAP 7 Normal 5-15 [facility] Comment on above: Order Comment: Order Date: 09/22/23 Order Info: 785-04 - CMP Order Info: - LIPID Order Info: 3015-06 - TSH Performed By: #### L 100.0100, L500.4050, L500.4100, L501.9985, L501.9520 #### [facility] [address] [place], [address] GFR/1.73 sq M.predicted among non-blacks MDRD (S/P/Bld) [Vol rate/Area] 54 mL/min/{1.73_m2} Low >60 [facility] Comment on above: Order Comment: Order Date: 09/22/23 Order Info: 785-04 - CMP Order Info: - LIPID Order Info: 3015-06 - TSH Result Comment: Non- GFR Calc Performed By: #### L 100.0100, L500.4050, L500.4100, L501.9985, L501.9520 #### [facility] [address] [place], [address] Globulin (S) [Mass/Vol] 3.6 g/dL Normal 2.2-4.2 [facility] Comment on above: Order Comment: Order Date: 09/22/23 Order Info: 785-04 - CMP Order Info: - LIPID Order Info: 3015-06 - TSH Performed By: #### L 100.0100, L500.4050, L500.4100, L501.9985, L501.9520 #### [facility] [address] [place], [address] Glucose [Mass/Vol] 93 mg/dL Normal 74-106 [facility] Comment on above: Order Comment: Order Date: 09/22/23 Order Info: 785-1 - CMP Order Info: - LIPID Order Info: 3 - TSH Performed By: #### L 100.0100, L500.4050, L500.4100, L501.9985, L501.9520 #### [facility] [address] [place], [address] Potassium [Moles/Vol] 3.9 mmol/L Normal 3.5-5.1 [facility] Comment on above: Order Comment: Order Date: 09/22/23 Order Info: 785-04 - CMP Order Info: - LIPID Order Info: 3015-06 - TSH Performed By: #### L 100.0100, L500.4050, L500.4100, L501.9985, L501.9520 #### [facility] [address] [place], [address] Sodium [Moles/Vol] 140 mmol/L Normal 136-145 [facility] Comment on above: Order Comment: Order Date: 09/22/23 Order Info: 785-04 - CMP Order Info: [id number] - LIPID Order Info: 3015-06 - TSH Performed By: #### L 100.0100, L500.4050, L500.4100, L501.9985, L501.9520 #### [facility] [address] [place], [address] T PROT 7.7 g/dL Normal 6.4-8.2 [facility] Comment on above: Order Comment: Order Date: 09/22/23 Order Info: 785-1 - CMP Order Info: [id number] - LIPID Order Info: 3016-3 - TSH Performed By: #### L 100.0100, L500.4050, L500.4100, L501.9985, L501.9520 #### [facility] Laboratory [address] [place], [address] Urea nitrogen [Mass/Vol] 18 mg/dL Normal 7-18 [facility] Comment on above: Order Comment: Order Date: 09/22/23 Order Info: [id number] - CMP Order Info: [id number] - LIPID Order Info: 3 - TSH Performed By: #### L 100.0100, L500.4050, L500.4100, L501.9985, L501.9520 #### [facility] Laboratory [address] [place], [address] Hemoglobin A1con 09-22-2023 HbA1c (Bld) [Mass fraction] 5.5 % Normal 3.8-5.6 [facility] Comment on above: Order Comment: Order Date: 09/22/23 Order Info: [id number] - A1C Result Comment: Norm al < 5.7 % Prediabetic 5.7 - 6.4 % Diabetic >or= 6.5 % Please note range changes. Performed By: #### L 100.0100, L500.4050, L500.4100, L501.9985, L501.9520 #### [facility] Laboratory [address] [place], [place], [id number] Lipid Profileon 09-22-2023 Cholesterol [Mass/Vol] 161 mg/dL Normal 200 [facility] Comment on above: Order Comment: Order Date: 09/22/23 Order Info: [id number] - CMP Order Info: [id number] - LIPID Order Info: [id number] - TSH Result Comment: <200 mg/dL Desirable 200-240 mg/dL Borderline >240 mg/dL High Risk Performed By: #### L 100.0100, L500.4050, L500.4100, L501.9985, L501.9520 #### [facility] Laboratory [address] [place], [address] Cholesterol in HDL [Mass/Vol] 53 mg/dL Normal [facility] Comment on above: Order Comment: Order Date: 09/22/23 Order Info: [id number] - CMP Order Info: [id number] - LIPID Order Info: 3 - TSH Result Comment: The drugs N-Acetylcysteine and Metamizole may falsely depress this assay. Reference Range HDL <40 mg/dL Low HDL Cholesterol HDL >or= 60 mg/dL High HDL Cholesterol Performed By: #### L 100.0100, L500.4050, L500.4100, L501.9985, L501.9520 #### [facility] Laboratory [address] [place], [address] Cholesterol in LDL [Mass/Vol] 88 mg/dL Normal 0-130 [facility] Comment on above: Order Comment: Order Date: 09/22/23 Order Info: [id number] - CMP Order Info: - LIPID Order Info: [id number] - TSH Performed By: #### L 100.0100, L500.4050, L500.4100, L501.9985, L501.9520 #### [facility] Laboratory [address] [place], [address] Cholesterol in VLDL [Mass/Vol] 20 mg/dL Normal 5-40 [facility] Comment on above: Order Comment: Order Date: 09/22/23 Order Info: [id number] - CMP Order Info: [id number] - LIPID Order Info: [id number] - TSH Performed By: #### L 100.0100, L500.4050, L500.4100, L501.9985, L501.9520 #### [facility] Laboratory [address] [place], [address] Triglyceride [Mass/Vol] 100 mg/dL Normal [facility] Comment on above: Order Comment: Order Date: 09/22/23 Order Info: [id number] - CMP Order Info: - LIPID Order Info: [id number] - TSH Result Comment: The drugs N-Acetylcysteine and Metamizole may falsely depress this assay. Serum Triglycerides Reference Interval Normal <150 mg/dL Borderline high 150 - 199 mg/dL High 200 - 499 mg/dL Very High > or = 500 mg/dL Performed By: #### L 100.0100, L500.4050, L500.4100, L501.9985, L501.9520 #### [facility] Laboratory [address] [place], [address] Thyroid Stim Hormone (TSH)on 09-22-2023 TSH 2.20 uIU/mL Normal 0.358-3.74 [facility] Comment on above: Order Comment: Order Date: 09/22/23 Order Info: [id number] - CMP Order Info: [id number] - LIPID Order Info: [id number] - TSH Performed By: #### L 100.0100, L500.4050, L500.4100, L501.9985, L501.9520 #### [facility] Laboratory [address] [facility] [place], [place], [address] Absolute lymphocyte countOrd ered By: Kimberly Hyman on 12-22-2022 Lymphocytes Auto (Unsp spec) [#/Vol] 2.97 10*3/uL 0.83-4.51 [facility] Basophil percentageOrdered B y: Kimberly Hyman on 12-22-2022 Basophils/100 WBC (Bld) 0.8 % 0-1 [facility] Bilirubin [Mass/Vol] 0.50 mg/dL 0.20-1.00 [facility] Comment on above: For patients on eltr ombopag therapy, use of Dimension [place] TBIL is not recommended. Chloride [Moles/Vol] 107 mmol/L 98-107 [facility] Cholesterol [Mass/Vol] 151 mg/dL <200 [facility] Comment on above: <200 mg/dL Desirable 200-240 mg/dL Borderline >240 mg/dL High Risk Eosinophils/100 WBC (Bld) 1.6 % 0-5 [facility] Glucose [Mass/Vol] 98 mg/dL 74-106 [facility] Neutrophils (Bld) [#/Vol] 3.6 10*3/uL 2.0-7.7 [facility] Neutrophils/100 WBC (Bld) 50.2 % 47-70 [facility] Potassium [Moles/Vol] 3.9 mmol/L 3.5-5.1 [facility] Protein [Mass/Vol] 7.4 g/dL 6.4-8.2 [facility] Sodium [Moles/Vol] 143 mmol/L 136-145 [facility] Triglyceride [Mass/Vol] 87 mg/dL <199 [facility] Comment on above: The drugs N-Acetylcy steine and Metamizole may falsely depress this assay.Serum Triglycerides Reference Interval Normal <150 mg/dL Borderline high 150 - 199 mg/dL High 200 - 499 mg/dL Very High > or = 500 mg/dL WBC (Bld) [#/Vol] 7.1 10*3/uL 4.4-11.0 [facility] Blood erythrocytes count (nu mber/volume)Ordered By: Kimberly Hyman on 12-22-2022 RBC (Bld) [#/Vol] 4.37 10*6/uL 4.2-5.4 [facility] Blood hemoglobin measurement (mass/volume)Ordered By: Kimberly Hyman on 12-22-2022 Hemoglobin (Bld) [Mass/Vol] 13.1 g/dL 12.0-15.0 [facility] Blood lymphocytes/100 leukoc ytesOrdered By: Kimberly Hyman on 12-22-2022 Lymphocytes/100 WBC (Bld) 42.0 % 19-41 [facility] Blood monocytes/100 leukocyt esOrdered By: Kimberly Hyman on 12-22-2022 Monocytes/100 WBC (Bld) 5.1 % 0-10 [facility] Blood platelet mean volumeOr dered By: Kimberly Hyman on 12-22-2022 Platelet mean volume (Bld) [Entitic vol] 11.5 fL 6.2-12.0 [facility] Determination of erythrocyte mean corpuscular volume (MCV)Ordered By: Kimberly Hyman on 12-22-2022 MCV (RBC) [Entitic vol] 94.3 fL 81-99 [facility] Hematocrit Auto (Bld) [Volum e fraction]Ordered By: Kimberly Hyman on 12-22-2022 Hematocrit (Bld) [Volume fraction] 41.2 % 37-47 [facility] Laboratory - Chemistry and C hemistry - challengeOrdered By: Kimberly Hyman on 12-22-2022 ALP [Catalytic activity/Vol] 109 U/L 45-117 [facility] ALT [Catalytic activity/Vol] 35 U/L 13-56 [facility] CO2 [Moles/Vol] 27.0 mmol/L 21.0-32.0 [facility] Cobalamin (Vitamin B12) [Mass/Vol] 1263 pg/mL 211-911 [facility] Globulin (S) [Mass/Vol] 3.4 g/dL 2.2-4.2 [facility] Urea nitrogen/Creatinine [Mass ratio] 17.4 mg/mg 10-20 [facility] Laboratory - Hematology and Cell countsOrdered By: Kimberly Hyman on 12-22-2022 Erythrocyte distribution width (RBC) [Entitic vol] 43.1 fL 35.1-43.9 [facility] Erythrocyte distribution width (RBC) [Ratio] 12.3 % 11.6-14.6 [facility] Immature granulocytes/100 WBC (Bld) 0.300 % 0.0-0.9 [facility] Comment on above: IG% - Immature Granu locytes (promyelocytes, myelocytes and metamyelocytes) > 1% indicates that a LEFT SHIFT is Present. MCH (RBC) [Entitic mass] 30.0 pg 27.0-32.0 [facility] Nucleated RBC/100 WBC (Bld) [Ratio] 0 % 0-5 [facility] MCHC Auto (RBC) [Mass/Vol]Or dered By: Kimberly Hyman on 12-22-2022 MCHC (RBC) [Mass/Vol] 31.8 g/dL 32-36 [facility] No Panel InformationOrdered By: Kimberly Hyman on 12-22-2022 Urine Microalbumin/Creatinin e Ratio TNP [facility] Comment on above: Test not performed Estimated GFR (MDRD) Amer 67 mL/min >60 [facility] Comment on above: GFR Calc Estimated GFR (MDRD) Non-Af Amer 55 mL/min >60 [facility] Comment on above: Non- GFR Calc Thyroid Stimulating Hormone (TSH) 2.58 uIU/mL 0.358-3.74 [facility] Vitamin D 25-Hydroxy 42.5 ng/mL [facility] Comment on above: Vitamin D 25(OH) Sta tus Range Deficiency <20 ng/mL (50nmol/L) Insufficiency 20 - 30 ng/mL (50 - 75 nmol/L) Sufficiency 30 - 100 ng/mL (75 - 250 nmol/L) Toxicity >100 ng/mL (>250 nmol/L) Platelets bldOrdered By: Frnacisco Hyman on 12-22-2022 Platelets (Bld) [#/Vol] 313 10*3/uL 150-450 [facility] Serum or plasma albumin shwetha urement (mass/volume)Ordered By: Kimberly Hyman on 12-22-2022 Albumin [Mass/Vol] 4.0 g/dL 3.2-5.0 [facility] Serum or plasma albumin/glob ulin mass ratioOrdered By: Kimberly Hyman on 12-22-2022 Albumin/Globulin [Mass ratio] 1.2 {ratio} 0.9-2.4 [facility] Serum or plasma calcium shwetha urement (mass/volume)Ordered By: Kimberly Hyman on 12-22-2022 Calcium [Mass/Vol] 9.2 mg/dL 8.5-10.1 [facility] Serum or plasma cholesterol in HDL measurement (mass/volume)Ordered By: Kimberly Hyman on 12-22-2022 Cholesterol in HDL [Mass/Vol] 50 mg/dL >40 [facility] Comment on above: The drugs N-Acetylcy steine and Metamizole may falsely depress this assay. Reference Range HDL <40 mg/dL Low HDL Cholesterol HDL >or= 60 mg/dL High HDL Cholesterol Serum or plasma cholesterol in VLDL measurement (mass/volume)Ordered By: Kimberly Hyman on 12-22-2022 Cholesterol in VLDL [Mass/Vol] 17 mg/dL 5-40 [facility] Serum or plasma creatinine m easurement (mass/volume)Ordered By: Kimberly Hyman on 12-22-2022 Creatinine [Mass/Vol] 1.09 mg/dL 0.55-1.02 [facility] Comment on above: The validity of the calculated GFR & GFRAA in patients over 70 years has not been determined. Clinical correlation is essential. Serum or plasma ferritin edwar surement (mass/volume)Ordered By: Kimberly Hyman on 12-22-2022 Ferritin [Mass/Vol] 68 ng/mL 8-252 [facility] Serum or plasma low density lipoprotein (LDL) cholesterol measurement (mass/volume)Ordered By: Kimberly Hyman on 12-22-2022 Cholesterol in LDL [Mass/Vol] 84 mg/dL 0-130 [facility] Serum or plasma urea nitroge n measurement (mass/volume)Ordered By: Kimberly Hyman on 12-22-2022 Urea nitrogen [Mass/Vol] 19 mg/dL 7-18 [facility] Thin prep Papanicolaou smear with manual screeningOrdered By: Kimberly Hyman on 12-22-2022 Thin prep Papanicolaou smear with manual screening < 5.0 mg/L NO RANGE EST. [facility] Thin prep Papanicolaou smear with manual screening 30 U/L 15-37 [facility] Thin prep Papanicolaou smear with manual screening 9 5-15 [facility] Urine creatinine measurement (mass/volume)Ordered By: Kimberly Hyman on 12-22-2022 Creatinine (U) [Mass/Vol] 46.40 mg/dL NO RANGE EST. [facility] Whole blood hemoglobin A1c/t otal hemoglobin ratio (mass fraction)Ordered By: Kimberly Hyman on 12-22-2022 HbA1c (Bld) [Mass fraction] 5.5 % 3.8-5.6 [facility] Comment on above: Normal < 5.7 % Predi abetic 5.7 - 6.4 % Diabetic >or= 6.5 % Please note range changes. Absolute lymphocyte counton 12-24-2021 Lymphocytes Auto (Unsp spec) [#/Vol] 3.70 10*3/uL 0.83-4.51 [facility] Work Phone: Basophil percentageon 2021 Basophils/100 WBC (Bld) 0.5 % 0-1 [facility] Work Phone: Bilirubin [Mass/Vol] 0.60 mg/dL 0.20-1.00 [facility] Work Phone: Comment on above: For patients on eltr ombopag therapy, use of Dimension [place] TBIL is not recommended. Chloride [Moles/Vol] 107 mmol/L 98-107 [facility] Work Phone: Cholesterol [Mass/Vol] 163 mg/dL <200 [facility] Work Phone: Comment on above: <200 mg/dL Desirable 200-240 mg/dL Borderline >240 mg/dL High Risk Eosinophils/100 WBC (Bld) 1.1 % 0-5 [facility] Work Phone: Glucose [Mass/Vol] 97 mg/dL 74-106 [facility] Work Phone: Neutrophils (Bld) [#/Vol] 4.1 10*3/uL 2.0-7.7 [facility] Work Phone: Neutrophils/100 WBC (Bld) 49.1 % 47-70 [facility] Work Phone: Potassium [Moles/Vol] 4.3 mmol/L 3.5-5.1 [facility] Work Phone: Protein [Mass/Vol] 7.1 g/dL 6.4-8.2 [facility] Work Phone: Sodium [Moles/Vol] 142 mmol/L 136-145 [facility] Work Phone: Triglyceride [Mass/Vol] 99 mg/dL <199 [facility] Work Phone: Comment on above: The drugs N-Acetylcy steine and Metamizole may falsely depress this assay.Serum Triglycerides Reference Interval Normal <150 mg/dL Borderline high 150 - 199 mg/dL High 200 - 499 mg/dL Very High > or = 500 mg/dL WBC (Bld) [#/Vol] 8.3 10*3/uL 4.4-11.0 [facility] Work Phone: Blood erythrocytes count (nu mber/volume)on 12-24-2021 RBC (Bld) [#/Vol] 4.38 10*6/uL 4.2-5.4 [facility] Work Phone: Blood hemoglobin measurement (mass/volume)on 12-24-2021 Hemoglobin (Bld) [Mass/Vol] 13.4 g/dL 12.0-15.0 [facility] Work Phone: Blood lymphocytes/100 leukoc yteson 12-24-2021 Lymphocytes/100 WBC (Bld) 44.4 % 19-41 [facility] Work Phone: Blood monocytes/100 leukocyt eson 12-24-2021 Monocytes/100 WBC (Bld) 4.7 % 0-10 [facility] Work Phone: Blood platelet mean volumeon 12-24-2021 Platelet mean volume (Bld) [Entitic vol] 11.8 fL 6.2-12.0 [facility] Work Phone: Determination of erythrocyte mean corpuscular volume (MCV)on 12-24-2021 MCV (RBC) [Entitic vol] 95.0 fL 81-99 [facility] Work Phone: Hematocrit Auto (Bld) [Volum e fraction]on 12-24-2021 Hematocrit (Bld) [Volume fraction] 41.6 % 37-47 [facility] Work Phone: Laboratory - Chemistry and C hemistry - challengeon 12-24-2021 ALP [Catalytic activity/Vol] 118 U/L 45-117 [facility] Work Phone: ALT [Catalytic activity/Vol] 50 U/L 13-56 [facility] Work Phone: CO2 [Moles/Vol] 28.0 mmol/L 21.0-32.0 [facility] Work Phone: Globulin (S) [Mass/Vol] 3.2 g/dL 2.2-4.2 [facility] Work Phone: Urea nitrogen/Creatinine [Mass ratio] 13.3 mg/mg 10-20 [facility] Work Phone: Laboratory - Hematology and Cell countson 12-24-2021 Erythrocyte distribution width (RBC) [Entitic vol] 43.9 fL 35.1-43.9 [facility] Work Phone: Erythrocyte distribution width (RBC) [Ratio] 12.5 % 11.6-14.6 [facility] Work Phone: Immature granulocytes/100 WBC (Bld) 0.200 % 0.0-0.9 [facility] Work Phone: Comment on above: IG% - Immature Granu locytes (promyelocytes, myelocytes and metamyelocytes) > 1% indicates that a LEFT SHIFT is Present. MCH (RBC) [Entitic mass] 30.6 pg 27.0-32.0 [facility] Work Phone: Nucleated RBC/100 WBC (Bld) [Ratio] 0 % 0-5 [facility] Work Phone: MCHC Auto (RBC) [Mass/Vol]on 12-24-2021 MCHC (RBC) [Mass/Vol] 32.2 g/dL 32-36 [facility] Work Phone: No Panel Informationon 12-24 Estimated GFR (MDRD) Amer 64 mL/min >60 [facility] Work Phone: Comment on above: GFR Calc Estimated GFR (MDRD) Non-Af Amer 53 mL/min >60 [facility] Work Phone: Comment on above: Non- GFR Calc Platelets bldon 12-24-2021 Platelets (Bld) [#/Vol] 305 10*3/uL 150-450 [facility] Work Phone: Serum or plasma albumin shwetha urement (mass/volume)on 12-24-2021 Albumin [Mass/Vol] 3.9 g/dL 3.2-5.0 [facility] Work Phone: Serum or plasma albumin/glob ulin mass ratioon 12-24-2021 Albumin/Globulin [Mass ratio] 1.2 {ratio} 0.9-2.4 [facility] Work Phone: Serum or plasma calcium shwetha urement (mass/volume)on 12-24-2021 Calcium [Mass/Vol] 9.3 mg/dL 8.5-10.1 [facility] Work Phone: Serum or plasma cholesterol in HDL measurement (mass/volume)on 12-24-2021 Cholesterol in HDL [Mass/Vol] 49 mg/dL >40 [facility] Work Phone: Comment on above: The drugs N-Acetylcy steine and Metamizole may falsely depress this assay. Reference Range HDL <40 mg/dL Low HDL Cholesterol HDL >or= 60 mg/dL High HDL Cholesterol Serum or plasma cholesterol in VLDL measurement (mass/volume)on 12-24-2021 Cholesterol in VLDL [Mass/Vol] 20 mg/dL 5-40 [facility] Work Phone: Serum or plasma creatinine m easurement (mass/volume)on 12-24-2021 Creatinine [Mass/Vol] 1.13 mg/dL 0.55-1.02 [facility] Work Phone: Comment on above: The validity of the calculated GFR & GFRAA in patients over 70 years has not been determined. Clinical correlation is essential. Serum or plasma low density lipoprotein (LDL) cholesterol measurement (mass/volume)on 12-24-2021 Cholesterol in LDL [Mass/Vol] 94 mg/dL 0-130 [facility] Work Phone: Serum or plasma urea nitroge n measurement (mass/volume)on 12-24-2021 Urea nitrogen [Mass/Vol] 15 mg/dL 7-18 [facility] Work Phone: Thin prep Papanicolaou smear with manual screeningon 12-24-2021 Thin prep Papanicolaou smear with manual screening 31 U/L 15-37 [facility] Work Phone: Thin prep Papanicolaou smear with manual screening 7 5-15 [facility] Work Phone: Thin prep Papanicolaou smear with manual screening 5.5 mg/L NO RANGE EST. [facility] Work Phone: Whole blood hemoglobin A1c/t otal hemoglobin ratio (mass fraction)on 12-24-2021 HbA1c (Bld) [Mass fraction] 5.8 % 3.8-5.6 [facility] Work Phone: Comment on above: Normal < 5.7 % Predi abetic 5.7 - 6.4 % Diabetic >or= 6.5 % Please note range changes. CBC and Differentialon 02-23 Abs Baso 0.05 k/uL Normal <0.11 [facility] Reference Lab Comment on above: Performed By: #### C MP, LIPB, IRON, FT4, FERR, TSH, CBCDIF, HBA1C #### [facility] Routine Lab [address] [place] [phone] Abs [place] 0.43 k/uL Normal <0.87 [facility] Comment on above: Performed By: #### C MP, LIPB, IRON, FT4, FERR, TSH, CBCDIF, HBA1C #### [facility] Routine Lab [address] [place] [address] Abs Neut 3.70 k/uL Normal 1.45-7.50 [facility] Comment on above: Performed By: #### C MP, LIPB, IRON, FT4, FERR, TSH, CBCDIF, HBA1C #### [facility] Routine Lab [address] [place] [address] Absolute nRBC <0.01 Normal <0.01 [facility] Comment on above: Performed By: #### C MP, LIPB, IRON, FT4, FERR, TSH, CBCDIF, HBA1C #### [facility] Routine Lab [address] [place] [address] Basophils/100 WBC (Bld) 0.6 % Normal [facility] Comment on above: Performed By: #### C MP, LIPB, IRON, FT4, FERR, TSH, CBCDIF, HBA1C #### [facility] Routine Lab [address] [place] [phone] DTYPE ADIFF Normal [facility] Comment on above: Performed By: #### C MP, LIPB, IRON, FT4, FERR, TSH, CBCDIF, HBA1C #### [facility] Routine Lab [address] [place] [phone] Eosinophils (Bld) [#/Vol] 0.12 10*3/uL Normal <0.46 [facility] Comment on above: Performed By: #### C MP, LIPB, IRON, FT4, FERR, TSH, CBCDIF, HBA1C #### [facility] Routine Lab [address] [place] [phone] Eosinophils/100 WBC (Bld) 1.5 % Normal [facility] Comment on above: Performed By: #### C MP, LIPB, IRON, FT4, FERR, TSH, CBCDIF, HBA1C #### [facility] Routine Lab [address] [place] [phone] Erythrocyte distribution width (RBC) [Ratio] 12.9 % Normal 11.5-15.0 [facility] Comment on above: Performed By: #### C MP, LIPB, IRON, FT4, FERR, TSH, CBCDIF, HBA1C #### [facility] Routine Lab [address] [place] [phone] Hematocrit (Bld) [Volume fraction] 40.6 % Normal 36.0-46.0 [facility] Comment on above: Performed By: #### C MP, LIPB, IRON, FT4, FERR, TSH, CBCDIF, HBA1C #### [facility] Routine Lab [address] [place] [phone] Hemoglobin (Bld) [Mass/Vol] 12.9 g/dL Normal 11.5-15.5 [facility] Comment on above: Performed By: #### C MP, LIPB, IRON, FT4, FERR, TSH, CBCDIF, HBA1C #### [facility] Routine Lab [address] [place], [place] [address] Lymphocytes (Bld) [#/Vol] 3.57 10*3/uL Normal 1.00-4.00 [facility] Comment on above: Performed By: #### C MP, LIPB, IRON, FT4, FERR, TSH, CBCDIF, HBA1C #### [facility] Routine Lab [address] [place] [address] Lymphocytes/100 WBC (Bld) 45.2 % Normal [facility] Comment on above: Performed By: #### C MP, LIPB, IRON, FT4, FERR, TSH, CBCDIF, HBA1C #### [facility] Routine Lab [address] [place] [address] MCH (RBC) [Entitic mass] 30.5 pG Normal 26.0-34.0 [facility] Comment on above: Performed By: #### C MP, LIPB, IRON, FT4, FERR, TSH, CBCDIF, HBA1C #### [facility] Routine Lab [address] [place] [phone] MCHC (RBC) [Mass/Vol] 31.8 g/dL Normal 30.5-36.0 [facility] Reference [facility] Comment on above: Performed By: #### C MP, LIPB, IRON, FT4, FERR, TSH, CBCDIF, HBA1C #### [facility] Routine Lab [address] [place] [address] MCV (RBC) [Entitic vol] 96.0 fL Normal 80.0-100.0 [facility] Comment on above: Performed By: #### C MP, LIPB, IRON, FT4, FERR, TSH, CBCDIF, HBA1C #### [facility] Routine Lab [address] [place] [phone] Monocytes/100 WBC (Bld) 5.4 % Normal [facility] Comment on above: Performed By: #### C MP, LIPB, IRON, FT4, FERR, TSH, CBCDIF, HBA1C #### [facility] Routine Lab [address] [place] [phone] Neutrophils/100 WBC (Bld) 47.3 % Normal [facility] Reference Lab Comment on above: Performed By: #### C MP, LIPB, IRON, FT4, FERR, TSH, CBCDIF, HBA1C #### [facility] Routine Lab [address] [place] [phone] NRBCs 0.0 /100 WBC Normal 0 [facility] Reference [facility] Comment on above: Performed By: #### C MP, LIPB, IRON, FT4, FERR, TSH, CBCDIF, HBA1C #### [facility] Routine Lab [address] [place] [phone] Platelet mean volume (Bld) [Entitic vol] 11.2 fL Normal 9.0-12.7 [facility] Lab Comment on above: Performed By: #### C MP, LIPB, IRON, FT4, FERR, TSH, CBCDIF, HBA1C #### [facility] Routine Lab [address] [place] [phone] Platelets (Bld) [#/Vol] 323 10*3/uL Normal 150-400 [facility] Reference [facility] Comment on above: Performed By: #### C MP, LIPB, IRON, FT4, FERR, TSH, CBCDIF, HBA1C #### [facility] Routine [facility] [address] [place] [phone] RBC (Bld) [#/Vol] 4.23 10*6/uL Normal 3.90-5.20 [facility] Reference Lab Comment on above: Performed By: #### C MP, LIPB, IRON, FT4, FERR, TSH, CBCDIF, HBA1C #### [facility]ine [facility] [address] [place] [phone] WBC (Bld) [#/Vol] 7.89 10*3/uL Normal 3.70-11.00 [facility] Reference Lab Comment on above: Performed By: #### C MP, LIPB, IRON, FT4, FERR, TSH, CBCDIF, HBA1C #### [facility] Routine Lab [address] [address] Comp Metabolic Panelon 02-23 Albumin [Mass/Vol] 4.2 g/dL Normal 3.9-4.9 [facility] Reference Lab Comment on above: Performed By: #### C MP, LIPB, IRON, FT4, FERR, TSH, CBCDIF, HBA1C #### [facility] Routine Lab [address] [address] ALP [Catalytic activity/Vol] 95 U/L Normal 34-123 [facility] Comment on above: Performed By: #### C MP, LIPB, IRON, FT4, FERR, TSH, CBCDIF, HBA1C #### [facility]ine Lab [address] [place] [address] ALT [Catalytic activity/Vol] 33 U/L Normal 7-38 [facility] Reference [facility] Comment on above: Performed By: #### C MP, LIPB, IRON, FT4, FERR, TSH, CBCDIF, HBA1C #### [facility]ine [facility] [address] [place], [place] [address] Anion gap [Moles/Vol] 12 mmol/L Normal 9-18 [facility] Reference Lab Comment on above: Performed By: #### C MP, LIPB, IRON, FT4, FERR, TSH, CBCDIF, HBA1C #### [facility] Routine [facility] [address] [address] AST [Catalytic activity/Vol] 24 U/L Normal 13-35 [facility] Reference [facility] Comment on above: Performed By: #### C MP, LIPB, IRON, FT4, FERR, TSH, CBCDIF, HBA1C #### [facility] Routine [facility] [address] [address] Bilirubin Ql (U) 0.6 mg/dL Normal 0.2-1.3 [facility] Reference Lab Comment on above: Performed By: #### C MP, LIPB, IRON, FT4, FERR, TSH, CBCDIF, HBA1C #### [facility] Routine [facility] [address] [address] Calcium [Mass/Vol] 9.5 mg/dL Normal 8.5-10.2 [facility] Reference Lab Comment on above: Performed By: #### C MP, LIPB, IRON, FT4, FERR, TSH, CBCDIF, HBA1C #### [facility]ine Lab [address] [place] [address] Chloride [Moles/Vol] 100 mmol/L Normal 97-105 [facility] Reference Lab Comment on above: Performed By: #### C MP, LIPB, IRON, FT4, FERR, TSH, CBCDIF, HBA1C #### [facility] [address] [place] [phone] CO2 [Moles/Vol] 29 mmol/L Normal 22-30 [facility] Comment on above: Performed By: #### C MP, LIPB, IRON, FT4, FERR, TSH, CBCDIF, HBA1C #### [facility] Routine Lab [address] [address] Creatinine [Mass/Vol] 0.96 mg/dL Normal 0.58-0.96 [facility] Reference Lab Comment on above: Performed By: #### C MP, LIPB, IRON, FT4, FERR, TSH, CBCDIF, HBA1C #### [facility] Routine [facility] [address] [address] eGFR- Amer. >60 Normal [facility] Reference Lab Comment on above: Performed By: #### C MP, LIPB, IRON, FT4, FERR, TSH, CBCDIF, HBA1C #### [facility] Routine Lab [address] [address] GFR/1.73 sq M predicted among non-blacks MDRD (S/P/Bld) [Vol rate/Area] mL/min/{1.73_m2} Normal [facility] Reference Lab Comment on above: Performed By: #### C MP, LIPB, IRON, FT4, FERR, TSH, CBCDIF, HBA1C #### [facility] Routine [facility] [address] [address] Glucose [Mass/Vol] 87 mg/dL Normal 74-99 [facility] Reference Lab Comment on above: Performed By: #### C MP, LIPB, IRON, FT4, FERR, TSH, CBCDIF, HBA1C #### [facility] Routine Lab [address] [place] [address] Potassium [Moles/Vol] 3.9 mmol/L Normal 3.7-5.1 [facility] Reference Lab Comment on above: Performed By: #### C MP, LIPB, IRON, FT4, FERR, TSH, CBCDIF, HBA1C #### [facility]ine Lab [address] [place] [address] Protein [Mass/Vol] 7.3 g/dL Normal 6.3-8.0 [facility] Reference Lab Comment on above: Performed By: #### C MP, LIPB, IRON, FT4, FERR, TSH, CBCDIF, HBA1C #### [facility]ine Lab [address] [place] [address] Sodium [Moles/Vol] 141 mmol/L Normal 136-144 [facility] Reference Lab Comment on above: Performed By: #### C MP, LIPB, IRON, FT4, FERR, TSH, CBCDIF, HBA1C #### [facility]ine Lab [address] [place] [address] Urea nitrogen [Mass/Vol] 14 mg/dL Normal 7-21 [facility] Comment on above: Performed By: #### C MP, LIPB, IRON, FT4, FERR, TSH, CBCDIF, HBA1C #### [facility] Routine [facility] [address] [place], [place] [address] Free T4on 02-23-2019 Free T4 [Mass/Vol] 1.3 ng/dL Normal 0.9-1.7 [facility] Reference Lab Comment on above: Performed By: #### C MP, LIPB, IRON, FT4, FERR, TSH, CBCDIF, HBA1C #### [facility] Routine [facility] [address] [place], [place] [address] Lipid Panel, Basicon 019 Cholesterol [Mass/Vol] 166 mg/dL Normal <200 [facility] Reference Lab Comment on above: Performed By: #### C MP, LIPB, IRON, FT4, FERR, TSH, CBCDIF, HBA1C #### [facility] Routine Lab [address] [place] [address] Cholesterol in HDL [Mass/Vol] 51 mg/dL Normal >39 [facility] Reference [facility] Comment on above: Performed By: #### C MP, LIPB, IRON, FT4, FERR, TSH, CBCDIF, HBA1C #### [facility] Routine Lab [address] [place] [address] Cholesterol in LDL [Mass/Vol] 98 mg/dL Normal <100 [facility] Comment on above: Performed By: #### C MP, LIPB, IRON, FT4, FERR, TSH, CBCDIF, HBA1C #### [facility] Routine Lab [address] [place], [place] [address] Cholesterol in VLDL [Mass/Vol] 17 mg/dL Normal <30 [facility] Reference [facility] Comment on above: Performed By: #### C MP, LIPB, IRON, FT4, FERR, TSH, CBCDIF, HBA1C #### [facility] Routine Lab [address] [place], [place] [address] Cholesterol non HDL [Mass/Vol] 115 mg/dL Normal <130 [facility] Comment on above: Performed By: #### C MP, LIPB, IRON, FT4, FERR, TSH, CBCDIF, HBA1C #### [facility] Routine Lab [address] [phone] LDL:HDL Ratio 1.92 Normal <2.54 [facility] Comment on above: Performed By: #### C MP, LIPB, IRON, FT4, FERR, TSH, CBCDIF, HBA1C #### [facility] Routine Lab [address] [phone] TC:HDL Ratio 3.25 Normal <5.10 [facility] Comment on above: Performed By: #### C MP, LIPB, IRON, FT4, FERR, TSH, CBCDIF, HBA1C #### [facility]ine Lab [address] [place] [phone] Triglyceride [Mass/Vol] 84 mg/dL Normal <150 [facility] Comment on above: Performed By: #### C MP, LIPB, IRON, FT4, FERR, TSH, CBCDIF, HBA1C #### [facility] Routine [facility] [address] [phone] Fasting Time 12 hrs Normal [facility] Reference [facility] Comment on above: Performed By: #### C MP, LIPB, IRON, FT4, FERR, TSH, CBCDIF, HBA1C #### [facility] Routine Lab [address] [place] [phone] TSHon 02-23-2019 TSH Qn 3.450 uU/mL Normal 0.270-4.200 [facility] Reference [facility] Comment on above: Performed By: #### C MP, LIPB, IRON, FT4, FERR, TSH, CBCDIF, HBA1C #### [facility] Routine Lab [address] [phone] Vitamin D 25 Hydroxyon 02-23 Vitamin D 25 Hydroxy 32.8 ng/mL Normal 31.0-80.0 [facility] Reference Lab Comment on above: Performed By: #### C MP, LIPB, IRON, FT4, FERR, TSH, CBCDIF, HBA1C #### [facility] Routine Lab [address] [place] [phone] CBC and Differentialon 11-18 Abs Baso 0.04 k/uL Normal <0.11 [facility] Reference [facility] Comment on above: Performed By: #### C MP, LIPB, IRON, FT4, FERR, TSH, CBCDIF, HBA1C #### [facility] Routine Lab [address] [place] [phone] Abs [place] 0.34 k/uL Normal <0.87 [facility] Comment on above: Performed By: #### C MP, LIPB, IRON, FT4, FERR, TSH, CBCDIF, HBA1C #### [facility] Routine [facility] [address] [place] [phone] Abs Neut 3.45 k/uL Normal 1.45-7.50 [facility] Comment on above: Performed By: #### C MP, LIPB, IRON, FT4, FERR, TSH, CBCDIF, HBA1C #### [facility] Routine [facility] [address] [place] [phone] Absolute nRBC 0.02 k/uL High <0.01 [facility] Reference [facility] Comment on above: Performed By: #### C MP, LIPB, IRON, FT4, FERR, TSH, CBCDIF, HBA1C #### [facility] Routine [facility] [address] [place] [phone] Basophils/100 WBC (Bld) 0.5 % Normal [facility] Reference [facility] Comment on above: Performed By: #### C MP, LIPB, IRON, FT4, FERR, TSH, CBCDIF, HBA1C #### [facility] Routine [facility] [address] [place] [phone] DTYPE ADIFF Normal [facility] Reference [facility] Comment on above: Performed By: #### C MP, LIPB, IRON, FT4, FERR, TSH, CBCDIF, HBA1C #### [facility] Routine [facility] [address] [place] [phone] Eosinophils (Bld) [#/Vol] 0.13 10*3/uL Normal <0.46 [facility] Reference [facility] Comment on above: Performed By: #### C MP, LIPB, IRON, FT4, FERR, TSH, CBCDIF, HBA1C #### [facility] Routine [facility] [address] [place] [phone] Eosinophils/100 WBC (Bld) 1.8 % Normal [facility] Comment on above: Performed By: #### C MP, LIPB, IRON, FT4, FERR, TSH, CBCDIF, HBA1C #### [facility] Routine [facility] [address] [place] [phone] Erythrocyte distribution width (RBC) [Ratio] 13.1 % Normal 11.5-15.0 [facility] Reference [facility] Comment on above: Performed By: #### C MP, LIPB, IRON, FT4, FERR, TSH, CBCDIF, HBA1C #### [facility] Routine [facility] [address] [place] [phone] Hematocrit (Bld) [Volume fraction] 41.8 % Normal 36.0-46.0 [facility] Comment on above: Performed By: #### C MP, LIPB, IRON, FT4, FERR, TSH, CBCDIF, HBA1C #### [facility] Routine Lab [address] [place] [phone] Hemoglobin (Bld) [Mass/Vol] 12.6 g/dL Normal 11.5-15.5 [facility] Comment on above: Performed By: #### C MP, LIPB, IRON, FT4, FERR, TSH, CBCDIF, HBA1C #### [facility] Routine [facility] [address] [place] [phone] Lymphocytes (Bld) [#/Vol] 3.46 10*3/uL Normal 1.00-4.00 [facility] Reference [facility] Comment on above: Performed By: #### C MP, LIPB, IRON, FT4, FERR, TSH, CBCDIF, HBA1C #### [facility] Routine Lab [address] [address] Lymphocytes/100 WBC (Bld) 46.6 % Normal [facility] Reference [facility] Comment on above: Performed By: #### C MP, LIPB, IRON, FT4, FERR, TSH, CBCDIF, HBA1C #### [facility] Routine Lab [address] [place] [address] MCH (RBC) [Entitic mass] 30.4 pG Normal 26.0-34.0 [facility] Reference [facility] Comment on above: Performed By: #### C MP, LIPB, IRON, FT4, FERR, TSH, CBCDIF, HBA1C #### [facility] Routine Lab [address] [place] [address] MCHC (RBC) [Mass/Vol] 30.1 g/dL Low 30.5-36.0 [facility] Reference Lab Comment on above: Performed By: #### C MP, LIPB, IRON, FT4, FERR, TSH, CBCDIF, HBA1C #### [facility] Routine Lab [address] [place] [address] MCV (RBC) [Entitic vol] 100.7 fL High 80.0-100.0 [facility] Reference Lab Comment on above: Performed By: #### C MP, LIPB, IRON, FT4, FERR, TSH, CBCDIF, HBA1C #### [facility] Routine Lab [address] [place] [address] Monocytes/100 WBC (Bld) 4.6 % Normal [facility] Reference Lab Comment on above: Performed By: #### C MP, LIPB, IRON, FT4, FERR, TSH, CBCDIF, HBA1C #### [facility] Routine Lab [address] [place] [address] Neutrophils/100 WBC (Bld) 46.5 % Normal [facility] Reference Lab Comment on above: Performed By: #### C MP, LIPB, IRON, FT4, FERR, TSH, CBCDIF, HBA1C #### [facility] Routine Lab [address] [address] NRBCs 0.3 /100 WBC High 0 [facility] Reference Lab Comment on above: Performed By: #### C MP, LIPB, IRON, FT4, FERR, TSH, CBCDIF, HBA1C #### [facility] Routine Lab [address] [address] Platelet mean volume (Bld) [Entitic vol] 11.9 fL Normal 9.0-12.7 [facility] Reference Lab Comment on above: Performed By: #### C MP, LIPB, IRON, FT4, FERR, TSH, CBCDIF, HBA1C #### [facility] Rout[facility] Lab [address] [place] [address] Platelets (Bld) [#/Vol] 312 10*3/uL Normal 150-400 [facility] Reference Lab Comment on above: Performed By: #### C MP, LIPB, IRON, FT4, FERR, TSH, CBCDIF, HBA1C #### [facility] Routine Lab [address] [place] [address] RBC (Bld) [#/Vol] 4.15 10*6/uL Normal 3.90-5.20 [facility] Reference Lab Comment on above: Performed By: #### C MP, LIPB, IRON, FT4, FERR, TSH, CBCDIF, HBA1C #### [facility] [address] [place] [address] WBC (Bld) [#/Vol] 7.42 10*3/uL Normal 3.70-11.00 [facility] Reference Lab Comment on above: Performed By: #### C MP, LIPB, IRON, FT4, FERR, TSH, CBCDIF, HBA1C #### [facility] Routine Lab [address] [place] [address] Comp Metabolic Panelon 11-18 Albumin [Mass/Vol] 3.9 g/dL Normal 3.9-4.9 [facility] Reference Lab Comment on above: Performed By: #### C MP, LIPB, IRON, FT4, FERR, TSH, CBCDIF, HBA1C #### [facility] Routine Lab [address] [place], [place] [address] ALP [Catalytic activity/Vol] 94 U/L Normal 34-123 [facility] Reference Lab Comment on above: Performed By: #### C MP, LIPB, IRON, FT4, FERR, TSH, CBCDIF, HBA1C #### [facility] Routine Lab [address] [place], [place] [address] ALT [Catalytic activity/Vol] 50 U/L High 7-38 [facility] Lab Comment on above: Performed By: #### C MP, LIPB, IRON, FT4, FERR, TSH, CBCDIF, HBA1C #### [facility] Routine Lab [address] [place], [place] [address] Anion gap [Moles/Vol] 11 mmol/L Normal 9-18 [facility] Reference Lab Comment on above: Performed By: #### C MP, LIPB, IRON, FT4, FERR, TSH, CBCDIF, HBA1C #### [facility] Routine Lab [address] [place], [place] [address] AST [Catalytic activity/Vol] 41 U/L High 13-35 [facility] Lab Comment on above: Performed By: #### C MP, LIPB, IRON, FT4, FERR, TSH, CBCDIF, HBA1C #### [facility] Routine Lab [address] [place], [place] [address] Bilirubin Ql (U) 0.5 mg/dL Normal 0.2-1.3 [facility] Reference Lab Comment on above: Performed By: #### C MP, LIPB, IRON, FT4, FERR, TSH, CBCDIF, HBA1C #### [facility] Routine Lab [address] [place], [place] [address] Calcium [Mass/Vol] 9.4 mg/dL Normal 8.5-10.2 [facility] Reference Lab Comment on above: Performed By: #### C MP, LIPB, IRON, FT4, FERR, TSH, CBCDIF, HBA1C #### [facility] Routine Lab [address] [place] [address] Chloride [Moles/Vol] 105 mmol/L Normal 97-105 [facility] Reference Lab Comment on above: Performed By: #### C MP, LIPB, IRON, FT4, FERR, TSH, CBCDIF, HBA1C #### [facility] Routine Lab [address] [place] [address] CO2 [Moles/Vol] 26 mmol/L Normal 22-30 [facility] Reference Lab Comment on above: Performed By: #### C MP, LIPB, IRON, FT4, FERR, TSH, CBCDIF, HBA1C #### [facility] Rout[facility] Lab [address] [place] [address] Creatinine [Mass/Vol] 0.93 mg/dL Normal 0.58-0.96 [facility] Reference Lab Comment on above: Performed By: #### C MP, LIPB, IRON, FT4, FERR, TSH, CBCDIF, HBA1C #### [facility] Lab [address] [place] [address] eGFR- Amer. >60 Normal [facility] Reference Lab Comment on above: Performed By: #### C MP, LIPB, IRON, FT4, FERR, TSH, CBCDIF, HBA1C #### [facility] Routine Lab [address] [place] [address] GFR/1.73 sq M predicted among non-blacks MDRD (S/P/Bld) [Vol rate/Area] mL/min/{1.73_m2} Normal [facility] Reference Lab Comment on above: Performed By: #### C MP, LIPB, IRON, FT4, FERR, TSH, CBCDIF, HBA1C #### [facility] Lab [address] [place] [address] Glucose [Mass/Vol] 88 mg/dL Normal 74-99 [facility] Reference Lab Comment on above: Performed By: #### C MP, LIPB, IRON, FT4, FERR, TSH, CBCDIF, HBA1C #### [facility] Routine Lab [address] [address] Potassium [Moles/Vol] 4.2 mmol/L Normal 3.7-5.1 [facility] Reference Lab Comment on above: Performed By: #### C MP, LIPB, IRON, FT4, FERR, TSH, CBCDIF, HBA1C #### [facility] Routine Lab [address] [place] [address] Protein [Mass/Vol] 6.9 g/dL Normal 6.3-8.0 [facility] Reference Lab Comment on above: Performed By: #### C MP, LIPB, IRON, FT4, FERR, TSH, CBCDIF, HBA1C #### [facility] Routine Lab [address] [place] [address] Sodium [Moles/Vol] 142 mmol/L Normal 136-144 [facility] Reference Lab Comment on above: Performed By: #### C MP, LIPB, IRON, FT4, FERR, TSH, CBCDIF, HBA1C #### [facility] Routine Lab [address] [place], [place] [id number] Urea nitrogen [Mass/Vol] 11 mg/dL Normal 7-21 [facility] Reference Lab Comment on above: Performed By: #### C MP, LIPB, IRON, FT4, FERR, TSH, CBCDIF, HBA1C #### [facility] Routine Lab [address] [place], [place] [id number] Free T4on 11-18-2018 Free T4 [Mass/Vol] 1.2 ng/dL Normal 0.9-1.7 [facility] Reference Lab Comment on above: Performed By: #### C MP, LIPB, IRON, FT4, FERR, TSH, CBCDIF, HBA1C #### [facility] Routine Lab [address] [place] [address] Hemoglobin A1con 11-18-2018 HbA1c (Bld) [Mass fraction] 105 mg/dL Normal [facility] Reference Lab Comment on above: Performed By: #### C MP, LIPB, IRON, FT4, FERR, TSH, CBCDIF, HBA1C #### [facility] Routine Lab [address] [place], [place] [address] HbA1c (Bld) [Mass fraction] 5.3 % Normal 4.3-5.6 [facility] Reference Lab Comment on above: Performed By: #### C MP, LIPB, IRON, FT4, FERR, TSH, CBCDIF, HBA1C #### [facility]ine Lab [address] [place], [place] [address] Lipid Panel, Basicon 019 Cholesterol [Mass/Vol] 158 mg/dL Normal <200 [facility] Reference Lab Comment on above: Performed By: #### C MP, LIPB, IRON, FT4, FERR, TSH, CBCDIF, HBA1C #### [facility]ine Lab [address] [place], [place] [address] Cholesterol in HDL [Mass/Vol] 47 mg/dL Normal >39 [facility] Reference Lab Comment on above: Performed By: #### C MP, LIPB, IRON, FT4, FERR, TSH, CBCDIF, HBA1C #### [facility]ine Lab [address] [place], [place] [address] Cholesterol in LDL [Mass/Vol] 90 mg/dL Normal <100 [facility] Reference Lab Comment on above: Performed By: #### C MP, LIPB, IRON, FT4, FERR, TSH, CBCDIF, HBA1C #### [facility] Lab [address] [place], [place] [address] Cholesterol in VLDL [Mass/Vol] 21 mg/dL Normal <30 [facility] Reference Lab Comment on above: Performed By: #### C MP, LIPB, IRON, FT4, FERR, TSH, CBCDIF, HBA1C #### [facility] Routine Lab [address] [phone] Cholesterol non HDL [Mass/Vol] 111 mg/dL Normal <130 [facility] Reference Lab Comment on above: Performed By: #### C MP, LIPB, IRON, FT4, FERR, TSH, CBCDIF, HBA1C #### [facility] Routine Lab [address] [place] [phone] LDL:HDL Ratio 1.91 Normal <2.54 [facility] Reference Lab Comment on above: Performed By: #### C MP, LIPB, IRON, FT4, FERR, TSH, CBCDIF, HBA1C #### [facility]ine Lab [address] [place] [phone] TC:HDL Ratio 3.36 Normal <5.10 [facility] Comment on above: Performed By: #### C MP, LIPB, IRON, FT4, FERR, TSH, CBCDIF, HBA1C #### [facility] [address] [place] [phone] Triglyceride [Mass/Vol] 105 mg/dL Normal <150 [facility] Comment on above: Performed By: #### C MP, LIPB, IRON, FT4, FERR, TSH, CBCDIF, HBA1C #### [facility] Routine Lab [address] [place] [phone] Fasting Time 12 hrs Normal [facility] Reference Lab Comment on above: Performed By: #### C MP, LIPB, IRON, FT4, FERR, TSH, CBCDIF, HBA1C #### [facility]ine Lab [address] [place] [phone] TSHon 11-18-2018 TSH Qn 3.060 uU/mL Normal 0.400-5.500 [facility] Lab Comment on above: Performed By: #### C MP, LIPB, IRON, FT4, FERR, TSH, CBCDIF, HBA1C #### [facility] Routine Lab [address] [place] [phone] Vitamin D 25 Hydroxyon 11-18 Vitamin D 25 Hydroxy 39.8 ng/mL Normal 31.0-80.0 [facility] Reference Lab Comment on above: Performed By: #### C MP, LIPB, IRON, FT4, FERR, TSH, CBCDIF, HBA1C #### [facility] Routine Lab [address] [address] HPV w/Genotypeon 10-19-2018 HPV HighRisk Other Normal [facility] Reference Lab Comment on above: Result Comment: Nega tive for HPV DNA high risk types: 31,33,35,39,45,51,52,56,58,59,66,68 by This test was developed and its performance characteristics determined by [facility] ([facility]). It has not been cleared or approved by the FDA. [facility] is regulated under CLIA as qualified to perform high-complexity testing. This test is used for clinical purposes. It should not be regarded as investigational or for research. PCR. This test was developed and its performance characteristics determined by [facility] [place] ([facility]). It has not been cleared or approved by the FDA. [facility] is regulated under CLIA as qualified to perform high-complexity testing. This test is used for clinical purposes. It should not be regarded as investigational or for research. Performed By: #### C MP, LIPB, IRON, FT4, FERR, TSH, CBCDIF, HBA1C #### [facility] Routine Lab [address] [place] [address] HPV HighRisk Type 16 NHPV16 Normal [facility] Reference Lab Comment on above: Performed By: #### C MP, LIPB, IRON, FT4, FERR, TSH, CBCDIF, HBA1C #### [facility] Routine Lab [address] [place] [address] HPV HighRisk Type 18 NHPV18 Normal [facility] Reference Lab Comment on above: Performed By: #### C MP, LIPB, IRON, FT4, FERR, TSH, CBCDIF, HBA1C #### [facility] Routine Lab [address] [place], [place] [address] CYTOLOGYon 10-15-2018 CYTOLOGY ADDITIONAL PROCEDURES PRESENT Specimen #: [id number] Submitting Physician: IRASEMA CONTE SPECIMEN SUBMITTED A: CERVICAL, SCREENING, FLUID FINAL DIAGNOSIS A. CERVICAL, SCREENING, FLUID Satisfactory for interpretation. Negative for intraepithelial lesion or malignancy. Acute inflammation. This specimen has been analyzed by the ThinPrep Imaging System, an automated imaging and review system, which assists the laboratory in evaluating cells on ThinPrep Pap tests. Following automated imaging, selected monroe from every slide are reviewed by a collection analyst. JULIANA Ortiz(ASCP) (Electronic Signature) ADDITIONAL PROCEDURE(S) HUMAN PAPILLOMA VIRUS Date Ordered: 10/18/2018 Date Reported: 10/19/2018 Procedure Results and Interpretation Negative for HPV DNA high risk type 16 by PCR. Negative for HPV DNA high risk type 18 by PCR. Negative for HPV DNA high risk types: 31,33,35,39,45,51,5 2,56,58,59,66,68 by PCR. This test was developed and its performance characteristics determined by [facility]'s [facility] [place] ([facility]). It has not been cleared or approved by the FDA. -[facility] is regulated under CLIA as qualified to perform high-complexity testing. This test is used for clinical purposes. It should not be regarded as investigational or for research. 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 CLIA Number: [id number] The Pap Smear is a screening test for cervical cancer. False negative results occur with all screening tests, emphasizing the need for rescreening at recommended intervals, and clinical correlation. Normal [facility] Reference Lab Comment on above: Performed By: #### C #### See report for performing lab information. CBC and Differentialon 08-11 Abs Baso 0.04 k/uL Normal <0.11 [facility] Reference Lab Comment on above: Performed By: #### C MP, LIPB, IRON, FT4, FERR, TSH, CBCDIF, HBA1C #### [facility] Routine Lab [address] [place] [address] Abs [place] 0.39 k/uL Normal <0.87 [facility] Reference Lab Comment on above: Performed By: #### C MP, LIPB, IRON, FT4, FERR, TSH, CBCDIF, HBA1C #### [facility] Routine Lab [address] [place] [address] Abs Neut 2.22 k/uL Normal 1.45-7.50 [facility] Reference Lab Comment on above: Performed By: #### C MP, LIPB, IRON, FT4, FERR, TSH, CBCDIF, HBA1C #### [facility] Routine Lab [address] [place] [phone] Absolute nRBC <0.01 Normal <0.01 [facility] Reference Lab Comment on above: Performed By: #### C MP, LIPB, IRON, FT4, FERR, TSH, CBCDIF, HBA1C #### [facility] Routine Lab [address] [place] [phone] Basophils/100 WBC (Bld) 0.7 % Normal [facility] Reference Lab Comment on above: Performed By: #### C MP, LIPB, IRON, FT4, FERR, TSH, CBCDIF, HBA1C #### [facility] Routine Lab [facility] [place] [phone] DTYPE ADIFF Normal [facility] Reference Lab Comment on above: Performed By: #### C MP, LIPB, IRON, FT4, FERR, TSH, CBCDIF, HBA1C #### [facility] Routine Lab [address] [place] [phone] Eosinophils (Bld) [#/Vol] 0.10 10*3/uL Normal <0.46 [facility] Reference Lab Comment on above: Performed By: #### C MP, LIPB, IRON, FT4, FERR, TSH, CBCDIF, HBA1C #### [facility] Routine Lab [facility] [place] [phone] Eosinophils/100 WBC (Bld) 1.7 % Normal [facility] Reference Lab Comment on above: Performed By: #### C MP, LIPB, IRON, FT4, FERR, TSH, CBCDIF, HBA1C #### [facility] Routine Lab [address] [place] [phone] Erythrocyte distribution width (RBC) [Ratio] 13.6 % Normal 11.5-15.0 [facility] Reference Lab Comment on above: Performed By: #### C MP, LIPB, IRON, FT4, FERR, TSH, CBCDIF, HBA1C #### [facility] Routine Lab [address] [place] [address] Hematocrit (Bld) [Volume fraction] 39.9 % Normal 36.0-46.0 [facility] Reference Lab Comment on above: Performed By: #### C MP, LIPB, IRON, FT4, FERR, TSH, CBCDIF, HBA1C #### [facility] Routine Lab [address] [place] [address] Hemoglobin (Bld) [Mass/Vol] 12.6 g/dL Normal 11.5-15.5 [facility] Reference Lab Comment on above: Performed By: #### C MP, LIPB, IRON, FT4, FERR, TSH, CBCDIF, HBA1C #### [facility] Routine Lab [address] [place] [address] Lymphocytes (Bld) [#/Vol] 3.24 10*3/uL Normal 1.00-4.00 [facility] Reference Lab Comment on above: Performed By: #### C MP, LIPB, IRON, FT4, FERR, TSH, CBCDIF, HBA1C #### [facility] Routine Lab [address] [place] [address] Lymphocytes/100 WBC (Bld) 54.0 % Normal [facility] Reference Lab Comment on above: Performed By: #### C MP, LIPB, IRON, FT4, FERR, TSH, CBCDIF, HBA1C #### [facility] Routine Lab [address] [place] [address] MCH (RBC) [Entitic mass] 31.1 pG Normal 26.0-34.0 [facility] Reference Lab Comment on above: Performed By: #### C MP, LIPB, IRON, FT4, FERR, TSH, CBCDIF, HBA1C #### [facility] Routine Lab [facility] [place] [address] MCHC (RBC) [Mass/Vol] 31.6 g/dL Normal 30.5-36.0 [facility] Reference Lab Comment on above: Performed By: #### C MP, LIPB, IRON, FT4, FERR, TSH, CBCDIF, HBA1C #### [facility] Routine Lab [address] [place] [address] MCV (RBC) [Entitic vol] 98.5 fL Normal 80.0-100.0 [facility] Reference Lab Comment on above: Performed By: #### C MP, LIPB, IRON, FT4, FERR, TSH, CBCDIF, HBA1C #### [facility] Routine Lab [address] [place] [address] Monocytes/100 WBC (Bld) 6.5 % Normal [facility] Reference Lab Comment on above: Performed By: #### C MP, LIPB, IRON, FT4, FERR, TSH, CBCDIF, HBA1C #### [facility] Routine Lab [address] [place] [address] Neutrophils/100 WBC (Bld) 37.1 % Normal [facility] Reference Lab Comment on above: Performed By: #### C MP, LIPB, IRON, FT4, FERR, TSH, CBCDIF, HBA1C #### [facility] Routine Lab [address] [place] [address] NRBCs 0.0 /100 WBC Normal 0 [facility] Reference Lab Comment on above: Performed By: #### C MP, LIPB, IRON, FT4, FERR, TSH, CBCDIF, HBA1C #### [facility] Routine Lab [address] [place] [address] Platelet mean volume (Bld) [Entitic vol] 11.9 fL Normal 9.0-12.7 [facility] Reference Lab Comment on above: Performed By: #### C MP, LIPB, IRON, FT4, FERR, TSH, CBCDIF, HBA1C #### [facility] Routine Lab [address] [place] [address] Platelets (Bld) [#/Vol] 304 10*3/uL Normal 150-400 [facility] Reference Lab Comment on above: Performed By: #### C MP, LIPB, IRON, FT4, FERR, TSH, CBCDIF, HBA1C #### [facility] Routine Lab [address] [place], [place] [phone] RBC (Bld) [#/Vol] 4.05 10*6/uL Normal 3.90-5.20 [facility] Reference Lab Comment on above: Performed By: #### C MP, LIPB, IRON, FT4, FERR, TSH, CBCDIF, HBA1C #### [facility] Routine Lab [address] [place] [address] WBC (Bld) [#/Vol] 6.00 10*3/uL Normal 3.70-11.00 [facility] Reference Lab Comment on above: Performed By: #### C MP, LIPB, IRON, FT4, FERR, TSH, CBCDIF, HBA1C #### [facility] Routine Lab [address] [place] [address] Comp Metabolic Panelon 08-11 Albumin [Mass/Vol] 3.8 g/dL Low 3.9-4.9 [facility] Reference Lab Comment on above: Performed By: #### C MP, LIPB, IRON, FT4, FERR, TSH, CBCDIF, HBA1C #### [facility] Routine Lab [address] [place] [address] ALP [Catalytic activity/Vol] 82 U/L Normal 34-123 [facility] Reference Lab Comment on above: Performed By: #### C MP, LIPB, IRON, FT4, FERR, TSH, CBCDIF, HBA1C #### [facility] Routine Lab [address] [place], [place] [address] ALT [Catalytic activity/Vol] 40 U/L High 7-38 [facility] Reference Lab Comment on above: Performed By: #### C MP, LIPB, IRON, FT4, FERR, TSH, CBCDIF, HBA1C #### [facility] Routine Lab [address] [place], [place] [address] Anion gap [Moles/Vol] 13 mmol/L Normal 9-18 [facility] Reference Lab Comment on above: Performed By: #### C MP, LIPB, IRON, FT4, FERR, TSH, CBCDIF, HBA1C #### [facility] Routine Lab [address] [place], [place] [address] AST [Catalytic activity/Vol] 47 U/L High 13-35 [facility] Reference Lab Comment on above: Performed By: #### C MP, LIPB, IRON, FT4, FERR, TSH, CBCDIF, HBA1C #### [facility] Routine Lab [address] [place] [address] Bilirubin Ql (U) 0.4 mg/dL Normal 0.2-1.3 [facility] Reference Lab Comment on above: Performed By: #### C MP, LIPB, IRON, FT4, FERR, TSH, CBCDIF, HBA1C #### [facility] Routine Lab [address] [place] [address] Calcium [Mass/Vol] 9.3 mg/dL Normal 8.5-10.2 [facility] Reference Lab Comment on above: Performed By: #### C MP, LIPB, IRON, FT4, FERR, TSH, CBCDIF, HBA1C #### [facility] Routine Lab [address] [place] [address] Chloride [Moles/Vol] 105 mmol/L Normal 97-105 [facility] Reference Lab Comment on above: Performed By: #### C MP, LIPB, IRON, FT4, FERR, TSH, CBCDIF, HBA1C #### [facility] Routine Lab [address] [place] [address] CO2 [Moles/Vol] 24 mmol/L Normal 22-30 [facility] Reference Lab Comment on above: Performed By: #### C MP, LIPB, IRON, FT4, FERR, TSH, CBCDIF, HBA1C #### [facility] Routine Lab [address] [place] [address] Creatinine [Mass/Vol] 0.88 mg/dL Normal 0.58-0.96 [facility] Reference Lab Comment on above: Performed By: #### C MP, LIPB, IRON, FT4, FERR, TSH, CBCDIF, HBA1C #### [facility] Routine Lab [address] [place], [place] [address] eGFR- Amer. >60 Normal [facility] Reference Lab Comment on above: Performed By: #### C MP, LIPB, IRON, FT4, FERR, TSH, CBCDIF, HBA1C #### [facility] Routine Lab [address] [place], [place] [address] GFR/1.73 sq M predicted among non-blacks MDRD (S/P/Bld) [Vol rate/Area] mL/min/{1.73_m2} Normal [facility] Reference Lab Comment on above: Performed By: #### C MP, LIPB, IRON, FT4, FERR, TSH, CBCDIF, HBA1C #### [facility] Routine Lab [address] [place], [place] [address] Glucose [Mass/Vol] 72 mg/dL Low 74-99 [facility] Reference Lab Comment on above: Performed By: #### C MP, LIPB, IRON, FT4, FERR, TSH, CBCDIF, HBA1C #### [facility] Routine Lab [address] [place] [address] Potassium [Moles/Vol] 4.1 mmol/L Normal 3.7-5.1 [facility] Reference Lab Comment on above: Performed By: #### C MP, LIPB, IRON, FT4, FERR, TSH, CBCDIF, HBA1C #### [facility] Routine Lab [address] [place] [address] Protein [Mass/Vol] 6.2 g/dL Low 6.3-8.0 [facility] Reference Lab Comment on above: Performed By: #### C MP, LIPB, IRON, FT4, FERR, TSH, CBCDIF, HBA1C #### [facility] Routine Lab [address] [place] [address] Sodium [Moles/Vol] 142 mmol/L Normal 136-144 [facility] Reference Lab Comment on above: Performed By: #### C MP, LIPB, IRON, FT4, FERR, TSH, CBCDIF, HBA1C #### [facility] Routine Lab [address] [place] [address] Urea nitrogen [Mass/Vol] 16 mg/dL Normal 7-21 [facility] Reference Lab Comment on above: Performed By: #### C MP, LIPB, IRON, FT4, FERR, TSH, CBCDIF, HBA1C #### [facility] Routine Lab [address] [place] [address] Ferritinon 08-11-2018 Ferritin [Mass/Vol] 96.7 ng/mL Normal 14.7-205.1 [facility] Lab Comment on above: Performed By: #### C MP, LIPB, IRON, FT4, FERR, TSH, CBCDIF, HBA1C #### [facility] Routine Lab [address] [place] [address] Free T4on 08-11-2018 Free T4 [Mass/Vol] 1.1 ng/dL Normal 0.9-1.7 [facility] Lab Comment on above: Performed By: #### C MP, LIPB, IRON, FT4, FERR, TSH, CBCDIF, HBA1C #### [facility] Routine Lab [address] [place] [address] Hemoglobin A1con 08-11-2018 HbA1c (Bld) [Mass fraction] 111 mg/dL Normal [facility] Reference Lab Comment on above: Performed By: #### C MP, LIPB, IRON, FT4, FERR, TSH, CBCDIF, HBA1C #### [facility] Routine Lab [address] [place], [place] [phone] HbA1c (Bld) [Mass fraction] 5.5 % Normal 4.3-5.6 [facility] Reference Lab Comment on above: Performed By: #### C MP, LIPB, IRON, FT4, FERR, TSH, CBCDIF, HBA1C #### [facility] Routine Lab [address] [place] [address] Iron and TIBCon 08-11-2018 TIBC 319 ug/dL Normal 232-386 [facility] Reference Lab Comment on above: Performed By: #### C MP, LIPB, IRON, FT4, FERR, TSH, CBCDIF, HBA1C #### [facility] Routine Lab [address] [place] [address] Transferrin Saturatn 29 % Normal 15-57 [facility] Reference Lab Comment on above: Performed By: #### C MP, LIPB, IRON, FT4, FERR, TSH, CBCDIF, HBA1C #### [facility] Routine Lab [address] [place] [address] Iron [Mass/Vol] 91 ug/dL Normal 41-186 [facility] Reference Lab Comment on above: Performed By: #### C MP, LIPB, IRON, FT4, FERR, TSH, CBCDIF, HBA1C #### [facility] Routine Lab [address] [place] [address] Lipid Panel, [place] 019 Cholesterol [Mass/Vol] 150 mg/dL Normal <200 [facility] Reference Lab Comment on above: Performed By: #### C MP, LIPB, IRON, FT4, FERR, TSH, CBCDIF, HBA1C #### [facility] Routine Lab [address] [place] [address] Cholesterol in HDL [Mass/Vol] 46 mg/dL Normal >39 [facility] Reference Lab Comment on above: Performed By: #### C MP, LIPB, IRON, FT4, FERR, TSH, CBCDIF, HBA1C #### [facility] Routine Lab [address] [place] [address] Cholesterol in LDL [Mass/Vol] 89 mg/dL Normal <100 [facility] Reference Lab Comment on above: Performed By: #### C MP, LIPB, IRON, FT4, FERR, TSH, CBCDIF, HBA1C #### [facility] Routine Lab [address] [place] [phone] Cholesterol in VLDL [Mass/Vol] 15 mg/dL Normal <30 [facility] Reference Lab Comment on above: Performed By: #### C MP, LIPB, IRON, FT4, FERR, TSH, CBCDIF, HBA1C #### [facility] Routine Lab [address] [place], [place] [phone] Cholesterol non HDL [Mass/Vol] 104 mg/dL Normal <130 [facility] Reference Lab Comment on above: Performed By: #### C MP, LIPB, IRON, FT4, FERR, TSH, CBCDIF, HBA1C #### [facility] Routine Lab [address] [place] [address] LDL:HDL Ratio 1.93 Normal <2.54 [facility] Reference Lab Comment on above: Performed By: #### C MP, LIPB, IRON, FT4, FERR, TSH, CBCDIF, HBA1C #### [facility] Routine Lab [address] [place], [place] [phone] TC:HDL Ratio 3.26 Normal <5.10 [facility] Reference Lab Comment on above: Performed By: #### C MP, LIPB, IRON, FT4, FERR, TSH, CBCDIF, HBA1C #### [facility] Routine Lab [address] [place], [place] [phone] Triglyceride [Mass/Vol] 77 mg/dL Normal <150 [facility] Reference Lab Comment on above: Performed By: #### C MP, LIPB, IRON, FT4, FERR, TSH, CBCDIF, HBA1C #### [facility] Routine Lab [address] [place], [place] [phone] Fasting Time 12 hrs Normal [facility] Reference Lab Comment on above: Performed By: #### C MP, LIPB, IRON, FT4, FERR, TSH, CBCDIF, HBA1C #### [facility] Routine Lab [address] [place] [phone] TSHon 08-11-2018 TSH Qn 2.390 uU/mL Normal 0.400-5.500 [facility] Reference Lab Comment on above: Performed By: #### C MP, LIPB, IRON, FT4, FERR, TSH, CBCDIF, HBA1C #### [facility] Routine Lab [address] [place], [place] [address] Vitamin D 25 Hydroxyon 08-11 Vitamin D 25 Hydroxy 37.2 ng/mL Normal 31.0-80.0 [facility] Reference Lab Comment on above: Performed By: #### C MP, LIPB, IRON, FT4, FERR, TSH, CBCDIF, HBA1C #### [facility] Routine Lab [address] [place], [place] [address] Basic Metabolic Panlon 07-24 Anion gap [Moles/Vol] 12 mmol/L Normal 9-[address] [facility] Lab Comment on above: Performed By: #### B MP #### [facility] Routine Lab [address] [place], [place] [address] Calcium [Mass/Vol] 9.4 mg/dL Normal 8.5-10.2 [facility] Reference Lab Comment on above: Performed By: #### B MP #### [facility] Routine Lab [address] [place], [place] [address] Chloride [Moles/Vol] 108 mmol/L High 97-105 [facility] Reference Lab Comment on above: Performed By: #### B MP #### [facility] [place] Routine Lab [address] [place], [place] [address] CO2 [Moles/Vol] 25 mmol/L Normal 22-30 [facility] Reference Lab Comment on above: Performed By: #### B MP #### [facility] Routine Lab [address] [place], [place] [address] Creatinine [Mass/Vol] 0.95 mg/dL Normal 0.58-0.96 [facility] Reference Lab Comment on above: Performed By: #### B MP #### [facility] [place] Routine Lab [address] [place], [place] [phone] eGFR- Amer. >60 Normal [facility] Reference Lab Comment on above: Performed By: #### B MP #### [facility] Routine Lab [address] [place], [place] [phone] GFR/1.73 sq M predicted among non-blacks MDRD (S/P/Bld) [Vol rate/Area] mL/min/{1.73_m2} Normal [facility] Reference Lab Comment on above: Performed By: #### B MP #### [facility] Routine Lab [address] [place], [place] [address] Glucose [Mass/Vol] 88 mg/dL Normal 74-99 [facility] Reference Lab Comment on above: Performed By: #### B MP #### [facility] Routine Lab [address] [place] [address] Potassium [Moles/Vol] 3.9 mmol/L Normal 3.7-5.1 [facility] Reference Lab Comment on above: Performed By: #### B MP #### [facility] Routine Lab [address] [place], [place] [phone] Sodium [Moles/Vol] 145 mmol/L High 136-144 [facility] Reference Lab Comment on above: Performed By: #### B MP #### 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 [place]. Patient identified by name and . Radha Nguyen CMA [facility] CNPTOUTREACHon 05-12-2018 CNPTOUTREA Patient Outreach (FAMPWS) ---- JOSUE WEINSTEIN ([id number]) 1965 F T Date Time Provider Department 05/12/18 RADHA NGUYEN ([facility]) FAMPWS During your visit today, we recorded the following information about you: Radha Nguyen CMA 05/17/2018 2:40 PM Signed [facility] CARE GAP REGISTRY DOCUMENTATION (OUTSIDE TEAMLET) Provider Action/FYI: Please file labs PSR Action/FYI: Due for Physical Exam Patient identified by name and date of . Last BP/Labs: Blood Pressure: Last 3 Encounter BP Readings: Date: BP: 10/06/2016 128/70 06/09/2016 136/86 03/10/2016 130/82 Lipids: Cholesterol, Total (mg/dL) Date Value 06/11/2016 154 10/19/2015 174 HDL Cholesterol (mg/dL) Date Value 06/11/2016 53 10/19/2015 53 LDL Cholesterol (mg/dL) Date Value 06/11/2016 83 10/19/2015 106 Triglyceride (mg/dL) Date Value 06/11/2016 89 10/19/2015 77 HGB A1C: Lab Results Component Value Date HBA1C 5.4 10/06/2016 HBA1C 5.8 08/14/2014 HBA1C 5.7 10/19/2007 TSH: TSH (uU/mL) Date Value 10/06/2016 1.680 01/14/2016 3.090 ) ? Patient has the following care gap registry disease diagnosis:Asthma ? Hyperlipidemia ? HTN ? Patient has the following open care gaps: Health Maintenance Due: ANNUAL PCP TEAM CHRONIC DISEASE VISIT due on 1984 BP CONTROLLED (<130/80) due on 1984 MAMMOGRAM due on 12/10/2016 INFLUENZA(1) due on 12/05/2017 ? Last office visit: 10/06/2016 ? Future office visit:Physical next available with pcp or technical applications scientist CAITLIN Tirado CMA 05/17/2018 2:40 PM Signed [facility] CORPORATE CLAIMS EXAMINER YAJAIAR Provider Action/FYI: Patient identified by name and . 1st attempt - [employer] message sent. CAITLIN Tirado CMA 05/17/2018 2:40 PM Signed [facility]ATE CLAIMS EXAMINER YAJAIRA Provider Action/FYI: Patient is no longer seeing us. She is going to [employer]. Patient identified by name and . Radha Nguyen CMA Allergies As of Date: 05/12/2018 Noted Allergy Reaction TORADOL (KETOROLAC TROMETHAMINE) 03/14/2005 2 - Rash LISINOPRIL 04/03/2015 3 - Cough NEURONTIN (GABAPENTIN) 02/16/2016 14 - Other: See Comments Comments: irritability Date Reviewed: 10/23/2016 Reviewed by: Debbie Brooks - Fully Assessed Reason for Visit: PHMA/Care Gap Outreach [3605] Primary Visit Diagnosis:Essential hypertension [I10] Other Visit Diagnosis:Other hyperlipidemia [E78.49] Order(s):COMP METABOLIC PANEL [SQCMP] Order #: [id number] FUTURE LIPID PANEL BASIC [SQLIPB] Order #: [id number] FUTURE Prescriptions as of 05/12/2018 Sig: VENLAFAXINE ER 37.5 MG CAPSUL* Take 1 capsule by mouth once * CETIRIZINE 10 MG TABLET Take 1 tablet by mouth once d* LANSOPRAZOLE 30 MG CAPSULE,DE* Take 1 capsule by mouth daily* MONTELUKAST 10 MG TABLET Take 1 tablet by mouth daily * ALBUTEROL SULFATE HFA 90 MCG/* Inhale 2 Puffs as instructed * LOSARTAN 50 MG-HYDROCHLOROTHI* Take 1 tablet by mouth once d* FLUTICASONE 110 MCG/ACTUATION* Inhale 1 Puff as instructed t* TRIAMCINOLONE ACETONIDE 0.1 %* Apply 1 application to affect* MELOXICAM 15 MG TABLET Take 1 tablet by mouth once d* CHOLECALCIFEROL (VITAMIN D3) * Take 1 capsule by mouth once * POLYETHYLENE GLYCOL 3350 17 G* Take one capful in a glass of* THERAPEUTIC MULTIVITAMIN TABL* Take one(1) tablet daily. Problem List As Of Date 05/12/2018 Noted Resolved OVARIAN CYST NEC/NOS [N83.209] INVALID FOR* Essential hypertension [I10] INVALID FOR* Asthma [J45.909] INVALID FOR* Unspecified constipation [K59.00] INVALID FOR* Benign neoplasm of colon [D12.6] INVALID FOR* Internal hemorrhoids without mention of complic*INVALID FOR* Impingement syndrome of left shoulder [M75.42] INVALID FOR* Morbid obesity (HCC) [E66.01] INVALID FOR* BMI 45.0-49.9, adult (HCC) [Z68.42] INVALID FOR* Dysthymia [F34.1] INVALID FOR* Physical exam [Z00.00] INVALID FOR* Gastroesophageal reflux disease without esophag*INVALID FOR* Hyperlipidemia [E78.5] INVALID FOR* Allergic rhinitis due to allergen [J30.9] INVALID FOR* Moderate persistent asthma without complication*INVALI D FOR* Smell or taste sensation disturbance [R43.9] INVALID FOR* Lightheaded [R42] INVALID FOR* Encounter Status:Closed by RADHA NGUYEN CMA on 05/17/18 Normal [place] PROGRESSon 05-12-2018 Protein mass conc HNO ID: [id number] Author: Radha Nguyen Service: (none) Author Type: Ob Scrub Tech Type: Progress Notes Filed: 05/17/2018 2:40 PM Note Text: [employer] CLAIMS EXAMINER QUICKNOTE Provider Action/FYI: Patient identified by name and . 1st attempt - [employer] message sent. Radha Nguyen CMA [facility] Protein mass conc HNO ID: [id number] Author: Radha Nguyen Service: (none) Author Type: Ob Scrub Tech Type: Progress Notes Filed: 05/17/2018 2:40 PM Note Text: PHMA CARE GAP REGISTRY DOCUMENTATION (OUTSIDE TEAMLET) Provider Action/FYI: Please file labs PSR Action/FYI: Due for Physical Exam Patient identified by name and date of . Last BP/Labs: Blood Pressure: Last 3 Encounter BP Readings: Date: BP: 10/06/2016 128/70 06/09/2016 136/86 03/10/2016 130/82 Lipids: Cholesterol, Total (mg/dL) Date Value 06/11/2016 154 10/19/2015 174 HDL Cholesterol (mg/dL) Date Value 06/11/2016 53 10/19/2015 53 LDL Cholesterol (mg/dL) Date Value 06/11/2016 83 10/19/2015 106 Triglyceride (mg/dL) Date Value 06/11/2016 89 10/19/2015 77 HGB A1C: Lab Results Component Value Date HBA1C 5.4 10/06/2016 HBA1C 5.8 08/14/2014 HBA1C 5.7 10/19/2007 TSH: TSH (uU/mL) Date Value 10/06/2016 1.680 01/14/2016 3.090 ) ? Patient has the following care gap registry disease diagnosis:Asthma ? Hyperlipidemia ? HTN ? Patient has the following open care gaps: Health Maintenance Due: ANNUAL PCP TEAM CHRONIC DISEASE VISIT due on 1984 BP CONTROLLED (<130/80) due on 1984 MAMMOGRAM due on 12/10/2016 INFLUENZA(1) due on 12/05/2017 ? Last office visit: 10/06/2016 ? Future office visit:Physical next available with pcp or technical applications scientist Radha Nguyen CMA Normal [place] CBC and Differentialon 04-29 Abs Baso 0.05 k/uL Normal <0.11 [facility] Reference Lab Comment on above: Performed By: #### C MP, LIPB, IRON, FT4, FERR, TSH, CBCDIF, HBA1C #### [facility] Routine Lab [address] [place], [place] [address] Abs [place] 0.39 k/uL Normal <0.87 [facility] Reference Lab Comment on above: Performed By: #### C MP, LIPB, IRON, FT4, FERR, TSH, CBCDIF, HBA1C #### [facility] Routine Lab [address] [place] [phone] Abs Neut 3.32 k/uL Normal 1.45-7.50 [facility] Reference Lab Comment on above: Performed By: #### C MP, LIPB, IRON, FT4, FERR, TSH, CBCDIF, HBA1C #### [facility] Routine Lab [address] [place] [phone] Absolute nRBC <0.01 Normal <0.01 [facility] Reference Lab Comment on above: Performed By: #### C MP, LIPB, IRON, FT4, FERR, TSH, CBCDIF, HBA1C #### [facility] Routine Lab [address] [place] [phone] Basophils/100 WBC (Bld) 0.6 % Normal [facility] Reference Lab Comment on above: Performed By: #### C MP, LIPB, IRON, FT4, FERR, TSH, CBCDIF, HBA1C #### [facility] Routine Lab [address] [place] [phone] DTYPE ADIFF Normal [facility] Reference Lab Comment on above: Performed By: #### C MP, LIPB, IRON, FT4, FERR, TSH, CBCDIF, HBA1C #### [facility] Routine Lab [address] [place] [phone] Eosinophils (Bld) [#/Vol] 0.09 10*3/uL Normal <0.46 [facility] Reference Lab Comment on above: Performed By: #### C MP, LIPB, IRON, FT4, FERR, TSH, CBCDIF, HBA1C #### [facility] Routine Lab [address] [place] [phone] Eosinophils/100 WBC (Bld) 1.1 % Normal [facility] Reference Lab Comment on above: Performed By: #### C MP, LIPB, IRON, FT4, FERR, TSH, CBCDIF, HBA1C #### [facility] Routine Lab [address] [place] [phone] Erythrocyte distribution width (RBC) [Ratio] 12.8 % Normal 11.5-15.0 [facility] Reference Lab Comment on above: Performed By: #### C MP, LIPB, IRON, FT4, FERR, TSH, CBCDIF, HBA1C #### [facility] Routine Lab [address] [place] [address] Hematocrit (Bld) [Volume fraction] 40.2 % Normal 36.0-46.0 [facility] Reference Lab Comment on above: Performed By: #### C MP, LIPB, IRON, FT4, FERR, TSH, CBCDIF, HBA1C #### [facility] Routine Lab [address] [place] [address] Hemoglobin (Bld) [Mass/Vol] 13.0 g/dL Normal 11.5-15.5 [facility] Reference Lab Comment on above: Performed By: #### C MP, LIPB, IRON, FT4, FERR, TSH, CBCDIF, HBA1C #### [facility] Routine Lab [address] [place] [address] Lymphocytes (Bld) [#/Vol] 4.13 10*3/uL High 1.00-4.00 [facility] Reference Lab Comment on above: Performed By: #### C MP, LIPB, IRON, FT4, FERR, TSH, CBCDIF, HBA1C #### [facility] Routine Lab [address] [place] [address] Lymphocytes/100 WBC (Bld) 51.6 % Normal [facility] Reference Lab Comment on above: Performed By: #### C MP, LIPB, IRON, FT4, FERR, TSH, CBCDIF, HBA1C #### [facility] Routine Lab [address] [place] [address] MCH (RBC) [Entitic mass] 30.6 pG Normal 26.0-34.0 [facility] Reference Lab Comment on above: Performed By: #### C MP, LIPB, IRON, FT4, FERR, TSH, CBCDIF, HBA1C #### [facility] Routine Lab [address] [place], [place] [address] MCHC (RBC) [Mass/Vol] 32.3 g/dL Normal 30.5-36.0 [facility] Reference Lab Comment on above: Performed By: #### C MP, LIPB, IRON, FT4, FERR, TSH, CBCDIF, HBA1C #### [facility] Routine Lab [address] [place] [address] MCV (RBC) [Entitic vol] 94.6 fL Normal 80.0-100.0 [facility] Reference Lab Comment on above: Performed By: #### C MP, LIPB, IRON, FT4, FERR, TSH, CBCDIF, HBA1C #### [facility] Routine Lab [address] [place] [address] Monocytes/100 WBC (Bld) 4.9 % Normal [facility] Reference Lab Comment on above: Performed By: #### C MP, LIPB, IRON, FT4, FERR, TSH, CBCDIF, HBA1C #### [facility] Routine Lab [address] [place] [address] Neutrophils/100 WBC (Bld) 41.8 % Normal [facility] Reference Lab Comment on above: Performed By: #### C MP, LIPB, IRON, FT4, FERR, TSH, CBCDIF, HBA1C #### [facility] Routine Lab [address] [place] [address] NRBCs 0.0 /100 WBC Normal 0 [facility] Reference Lab Comment on above: Performed By: #### C MP, LIPB, IRON, FT4, FERR, TSH, CBCDIF, HBA1C #### [facility] Routine Lab [address] [place] [address] Platelet mean volume (Bld) [Entitic vol] 11.5 fL Normal 9.0-12.7 [facility] Reference Lab Comment on above: Performed By: #### C MP, LIPB, IRON, FT4, FERR, TSH, CBCDIF, HBA1C #### [facility] Routine Lab [address] [place] [address] Platelets (Bld) [#/Vol] 355 10*3/uL Normal 150-400 [facility] Reference Lab Comment on above: Performed By: #### C MP, LIPB, IRON, FT4, FERR, TSH, CBCDIF, HBA1C #### [facility] Routine Lab [address] [place] [address] RBC (Bld) [#/Vol] 4.25 10*6/uL Normal 3.90-5.20 [facility] Reference Lab Comment on above: Performed By: #### C MP, LIPB, IRON, FT4, FERR, TSH, CBCDIF, HBA1C #### [facility] Routine Lab [address] [place] [address] WBC (Bld) [#/Vol] 8.00 10*3/uL Normal 3.70-11.00 [facility] Reference Lab Comment on above: Performed By: #### C MP, LIPB, IRON, FT4, FERR, TSH, CBCDIF, HBA1C #### [facility] Routine Lab [address] [place], [place] [id number] Comp Metabolic Panelon 04-29 Albumin [Mass/Vol] 4.0 g/dL Normal 3.9-4.9 [facility] Lab Comment on above: Performed By: #### C MP, LIPB, IRON, FT4, FERR, TSH, CBCDIF, HBA1C #### [facility] Routine Lab [address] [place], [place] [phone] ALP [Catalytic activity/Vol] 106 U/L Normal 34-123 [facility] Reference Lab Comment on above: Performed By: #### C MP, LIPB, IRON, FT4, FERR, TSH, CBCDIF, HBA1C #### [facility] Routine Lab [address] [place] [address] ALT [Catalytic activity/Vol] 43 U/L High 7-38 [facility] Reference Lab Comment on above: Performed By: #### C MP, LIPB, IRON, FT4, FERR, TSH, CBCDIF, HBA1C #### [facility] Routine Lab [address] [place] [address] Anion gap [Moles/Vol] 13 mmol/L Normal 9-[address] [facility] Lab Comment on above: Performed By: #### C MP, LIPB, IRON, FT4, FERR, TSH, CBCDIF, HBA1C #### [facility] Routine Lab [address] [place] [address] AST [Catalytic activity/Vol] 35 U/L Normal 13-35 [facility] Lab Comment on above: Performed By: #### C MP, LIPB, IRON, FT4, FERR, TSH, CBCDIF, HBA1C #### [facility] Routine Lab [address] [place] [address] Bilirubin Ql (U) 0.6 mg/dL Normal 0.2-1.3 [facility] Reference Lab Comment on above: Performed By: #### C MP, LIPB, IRON, FT4, FERR, TSH, CBCDIF, HBA1C #### [facility] Routine Lab [address] [place] [address] Calcium [Mass/Vol] 9.1 mg/dL Normal 8.5-10.2 [facility] Lab Comment on above: Performed By: #### C MP, LIPB, IRON, FT4, FERR, TSH, CBCDIF, HBA1C #### [facility] Routine Lab [address] [place] [address] Chloride [Moles/Vol] 102 mmol/L Normal 97-105 [facility] Reference Lab Comment on above: Performed By: #### C MP, LIPB, IRON, FT4, FERR, TSH, CBCDIF, HBA1C #### [facility] Routine Lab [address] [place] [address] CO2 [Moles/Vol] 25 mmol/L Normal 22-30 [facility] Reference Lab Comment on above: Performed By: #### C MP, LIPB, IRON, FT4, FERR, TSH, CBCDIF, HBA1C #### [facility] Routine Lab [address] [place], [place] [address] Creatinine [Mass/Vol] 0.89 mg/dL Normal 0.58-0.96 [facility] Reference Lab Comment on above: Performed By: #### C MP, LIPB, IRON, FT4, FERR, TSH, CBCDIF, HBA1C #### [facility] Routine Lab [address] [place] [address] eGFR- Amer. >60 Normal [facility] Reference Lab Comment on above: Performed By: #### C MP, LIPB, IRON, FT4, FERR, TSH, CBCDIF, HBA1C #### [facility] Routine Lab [address] [place], [place] [address] GFR/1.73 sq M predicted among non-blacks MDRD (S/P/Bld) [Vol rate/Area] mL/min/{1.73_m2} Normal [facility] Reference Lab Comment on above: Performed By: #### C MP, LIPB, IRON, FT4, FERR, TSH, CBCDIF, HBA1C #### [facility] Routine Lab [address] [place], [place] [address] Glucose [Mass/Vol] 96 mg/dL Normal 74-99 [facility] Reference Lab Comment on above: Performed By: #### C MP, LIPB, IRON, FT4, FERR, TSH, CBCDIF, HBA1C #### [facility] Routine Lab [address] [place], [place] [address] Potassium [Moles/Vol] 4.0 mmol/L Normal 3.7-5.1 [facility] Reference Lab Comment on above: Performed By: #### C MP, LIPB, IRON, FT4, FERR, TSH, CBCDIF, HBA1C #### [facility] Routine Lab [address] [place] [address] Protein [Mass/Vol] 7.3 g/dL Normal 6.3-8.0 [facility] Reference Lab Comment on above: Performed By: #### C MP, LIPB, IRON, FT4, FERR, TSH, CBCDIF, HBA1C #### [facility] Routine Lab [address] [place] [address] Sodium [Moles/Vol] 140 mmol/L Normal 136-144 [facility] Reference Lab Comment on above: Performed By: #### C MP, LIPB, IRON, FT4, FERR, TSH, CBCDIF, HBA1C #### [facility] Routine Lab [address] [place] [address] Urea nitrogen [Mass/Vol] 11 mg/dL Normal 7-21 [facility] Reference Lab Comment on above: Performed By: #### C MP, LIPB, IRON, FT4, FERR, TSH, CBCDIF, HBA1C #### [facility] Routine Lab [address] [place] [address] Ferritinon 04-29-2018 Ferritin [Mass/Vol] 108.6 ng/mL Normal 14.7-205.1 [facility] Reference Lab Comment on above: Performed By: #### C MP, LIPB, IRON, FT4, FERR, TSH, CBCDIF, HBA1C #### [facility] Routine Lab [address] [place] [address] Free T4on 04-29-2018 Free T4 [Mass/Vol] 1.3 ng/dL Normal 0.9-1.7 [facility] Reference Lab Comment on above: Performed By: #### C MP, LIPB, IRON, FT4, FERR, TSH, CBCDIF, HBA1C #### [facility] Routine Lab [address] [place] [address] Hemoglobin A1con 04-29-2018 HbA1c (Bld) [Mass fraction] 105 mg/dL Normal [facility] Reference Lab Comment on above: Performed By: #### C MP, LIPB, IRON, FT4, FERR, TSH, CBCDIF, HBA1C #### [facility] Routine Lab [address] [place], [place] [address] HbA1c (Bld) [Mass fraction] 5.3 % Normal 4.3-5.6 [facility] Reference Lab Comment on above: Performed By: #### C MP, LIPB, IRON, FT4, FERR, TSH, CBCDIF, HBA1C #### [facility] Routine Lab [address] [place] [address] Iron and TIBCon 04-29-2018 Iron [Mass/Vol] 100 ug/dL Normal 41-186 [facility] Reference Lab Comment on above: Performed By: #### C MP, LIPB, IRON, FT4, FERR, TSH, CBCDIF, HBA1C #### [facility] Routine Lab [address] [place] [address] TIBC 350 ug/dL Normal 232-386 [facility] Reference Lab Comment on above: Performed By: #### C MP, LIPB, IRON, FT4, FERR, TSH, CBCDIF, HBA1C #### [facility] Routine Lab [address] [place] [address] Transferrin Saturatn 29 % Normal 15-57 [facility] Reference Lab Comment on above: Performed By: #### C MP, LIPB, IRON, FT4, FERR, TSH, CBCDIF, HBA1C #### [facility] Routine Lab [address] [place], [place] [address] Lipid Panel, Bas[place] 019 Cholesterol [Mass/Vol] 165 mg/dL Normal <200 [facility] Reference Lab Comment on above: Performed By: #### C MP, LIPB, IRON, FT4, FERR, TSH, CBCDIF, HBA1C #### [facility] Routine Lab [address] [place], [place] [address] Cholesterol in HDL [Mass/Vol] 49 mg/dL Normal >39 [facility] Reference Lab Comment on above: Performed By: #### C MP, LIPB, IRON, FT4, FERR, TSH, CBCDIF, HBA1C #### [facility] Routine Lab [address] [place] [address] Cholesterol in LDL [Mass/Vol] 99 mg/dL Normal <100 [facility] Reference Lab Comment on above: Performed By: #### C MP, LIPB, IRON, FT4, FERR, TSH, CBCDIF, HBA1C #### [facility] Routine Lab [address] [place] [phone] Cholesterol in VLDL [Mass/Vol] 17 mg/dL Normal <30 [facility] Reference Lab Comment on above: Performed By: #### C MP, LIPB, IRON, FT4, FERR, TSH, CBCDIF, HBA1C #### [facility] Routine Lab [address] [place] [phone] Cholesterol non HDL [Mass/Vol] 116 mg/dL Normal <130 [facility] Reference Lab Comment on above: Performed By: #### C MP, LIPB, IRON, FT4, FERR, TSH, CBCDIF, HBA1C #### [facility] Routine Lab [address] [place] [phone] LDL:HDL Ratio 2.02 Normal <2.54 [facility] Reference Lab Comment on above: Performed By: #### C MP, LIPB, IRON, FT4, FERR, TSH, CBCDIF, HBA1C #### [facility] Routine Lab [address] [place] [phone] TC:HDL Ratio 3.37 Normal <5.10 [facility] Reference Lab Comment on above: Performed By: #### C MP, LIPB, IRON, FT4, FERR, TSH, CBCDIF, HBA1C #### [facility] Routine Lab [address] [place] [phone] Triglyceride [Mass/Vol] 85 mg/dL Normal <150 [facility] Reference Lab Comment on above: Performed By: #### C MP, LIPB, IRON, FT4, FERR, TSH, CBCDIF, HBA1C #### [facility] Routine Lab [address] [place] [address] Fasting Time UN Normal [facility] Reference Lab Comment on above: Performed By: #### C MP, LIPB, IRON, FT4, FERR, TSH, CBCDIF, HBA1C #### [facility] Routine Lab [address] [place] [address] TSHon 04-29-2018 TSH Qn 3.020 uU/mL Normal 0.400-5.500 [facility] Reference Lab Comment on above: Performed By: #### C MP, LIPB, IRON, FT4, FERR, TSH, CBCDIF, HBA1C #### [facility] Routine Lab [address] [place] [phone] Vitamin D 25 Hydroxyon 04-29 Vitamin D 25 Hydroxy 44.9 ng/mL Normal 31.0-80.0 [facility] Reference Lab Comment on above: Performed By: #### V ITD #### [facility] Routine Lab [address] [place] [address] Office Visit: colposcopyon 1 04-12-2016 Documentation of current medications (procedure) Done Invalid Interpretation Code [facility] Fall risk assessment No Invalid Interpretation Code [facility] Tobacco smoking status NHIS Never Invalid Interpretation Code [facility] Tobacco use CPHS Never smoker Invalid Interpretation Code [facility] Office Visit: Abnormal Mammo gram Left Breast Biopsyon 01-15-2017 Breast Mammogram screening Abnormal Left Invalid Interpretation Code [facility] Office Visit: colposcopyon 0 04-06-2016 General categories [Interpretation] of Cervical or vaginal smear or scraping by Cyto stain Abnormal Invalid Interpretation Code [facility] Office Visit: Abnormal Mammo gram Left Breast Biopsyon 12-16-2010 Colonoscopy (procedure) Abnormal Invalid Interpretation Code [facility] Vital Signs Date Time Vital Sign Value Performing Clinician Steve tan 01-22-2022 10:19-0400 Body height 167.64 cm DO Kimberly Hyman Work Phone: [facility] Work Phone: 01-22-2022 10:13-0400 Body mass index (BMI) [Ratio] 47.9 kg/m2 DO Kimberly Lawser Work Phone: [facility] Work Phone: 01-22-2022 10:13-0400 Body weight 134.83 kg DO Kimberly Yusufnger Work Phone: [facility] Work Phone: 01-22-2022 10:13-0400 Diastolic blood pressure 82 mm[Hg] DO Kimberly Yusufnger Work Phone: [facility] Work Phone: 01-22-2022 10:13-0400 Systolic blood pressure 134 mm[Hg] DO Kimberly Yusufnger Work Phone: [facility] Work Phone: 12-31-2021 11:06-0400 Body height 167.64 cm DO Kimberly Yusufnger Work Phone: [facility] Work Phone: 12-31-2021 11:06-0400 Body mass index (BMI) [Ratio] 49.1 kg/m2 DO Kimberly Yusufnger Work Phone: [facility] Work Phone: 12-31-2021 11:06-0400 Body weight 138 kg DO Kimberly Yusufnger Work Phone: [facility] Work Phone: 02-10-2017 08:55-0500 BMI (Body Mass Index) 43.83 kg/m2 Hayley Ackerman MD [facility] 02-10-2017 08:55-0500 Body Temperature 96.3 [degF] Hayley Ackerman MD [facility] 02-10-2017 08:55-0500 BP Diastolic 77 mm[Hg] Hayley Ackerman MD [facility] 02-10-2017 08:55-0500 BP Systolic 122 mm[Hg] Hayley Ackerman MD [facility] 02-10-2017 08:55-0500 Height 167.64 cm Hayley Ackerman MD [facility] 02-10-2017 08:55-0500 Pulse (Heart Rate) 66 /min Hayley Ackerman MD [facility] 02-10-2017 08:55-0500 Respiratory Rate 16 /min Hayley Ackerman MD [facility] 02-10-2017 08:55-0500 Weight 123.2 kg Hayley Ackerman MD [facility] Encounters Encounter Date Encounter Type Care Provider Facility Start: 04-11-2024 End: 04-11-2024 ambulatory Chalon Adry Facility:[facility] Start: 01-22-2024 End: 01-22-2024 ambulatory Chalon Adry Facility:[facility] Start: 12-17-2023 ambulatory Chalon Adry Facility:[facility] Start: 12-17-2023 End: 12-17-2023 ambulatory Chalon Adry Facility:[facility] Start: 09-22-2023 End: 09-22-2023 ambulatory Chalon Adry Facility:[facility] Start: 12-31-2022 End: 12-31-2022 Patient encounter procedure DO Kimberly Hyman Work Phone: [facility] Work Phone: Start: 12-30-2022 End: 12-30-2022 ambulatory DO Kimberly Hyman Work Phone: [facility] Work Phone: Start: 12-30-2022 End: 12-30-2022 Patient encounter procedure DO Kimberly Hyman Work Phone: [facility]-Outpatient Breast Imaging Work Phone: Start: 12-22-2022 End: 12-22-2022 ambulatory [facility] Work Phone: Start: 12-22-2022 End: 12-22-2022 Patient encounter procedure [facility] Start: 08-05-2022 Registered Recurring DO Corine Hyman Work Phone: [facility]-Physical Therapy Start: 08-02-2022 End: 08-02-2022 ambulatory DO Kimberly Hyman Work Phone: [facility] Work Phone: Start: 08-02-2022 End: 08-02-2022 Patient encounter procedure DO Kimberly Hyman Work Phone: [facility] Start: 07-17-2022 End: 07-17-2022 Patient encounter procedure DO Kimberly Hyman Work Phone: [facility] Start: 06-30-2022 End: 06-30-2022 Patient encounter procedure DO Kimberly Hyman Work Phone: [facility] Start: 06-26-2022 End: 06-26-2022 Patient encounter procedure DO Kimberly Hyman Work Phone: [facility] Start: 01-28-2022 End: 01-28-2022 ambulatory DO Kimberly Hyman Work Phone: [facility] Work Phone: Start: 01-28-2022 End: 01-28-2022 Patient encounter procedure DO Kimberly Hyman Work Phone: [facility] Start: 01-22-2022 End: 01-22-2022 ambulatory DO Kimberly Hyman Work Phone: [facility] Work Phone: Start: 01-22-2022 End: 01-22-2022 Patient encounter procedure DO Kimberly Hyman Work Phone: [facility]-Laboratory, Specimen Start: 01-22-2022 End: 01-22-2022 Patient encounter procedure DO Kimberly Lawser Work Phone: [facility] Start: 12-31-2021 End: 12-31-2021 Patient encounter procedure DO Kimberly Lawser Work Phone: [facility] Start: 12-26-2021 End: 12-26-2021 ambulatory DO Kimberly Hyman Work Phone: [facility] Work Phone: Start: 12-26-2021 End: 12-26-2021 Patient encounter procedure DO Kimberly Hyman Work Phone: [facility]-Outpatient Breast Imaging Start: 12-24-2021 End: 12-24-2021 Patient encounter procedure DO Kimberly Hyman Work Phone: [facility]Laboratory, [facility] Procedures Date Procedure Procedure Detail Performing Clinician Start: 12-30-2022 Screening mammography D O Kimberly Hyman Work Phone: Start: 08-02-2022 MRI of joint of lowe r extremity DO Kimberly Hyman Work Phone: Start: 06-26-2022 Radiologic examinati on of knee DO Kimberly Hyman Work Phone: Start: 06-26-2022 Plain x-ray of pelvi s and lower extremity DO Kimberly Hyman Work Phone: Start: 01-28-2022 Pelvic echography DO Jarod Hyman Work Phone: Start: 01-28-2022 Transvaginal echography DO Kimberly Hyman Work Phone: Start: 12-31-2021 Plain x-ray of pelvi s and lower extremity DO Kimberly Hyman Work Phone: Start: 12-26-2021 Screening mammography D O Kimberly Hyman Work Phone: Start: 02-10-2017 End: 02-10-2017 Colposcopy entire vagina w/cervix if present Hayley Ackerman MD Work Phone: Plan of Treatment Date Care Activity Detail Author Start: 07-17-2022 Patient referral [facility] Work Phone: Start: 02-17-2017 End: 02-17-2017 Appointment Appointment [facility] Start: 01-21-2017 End: 01-22-2017 Bx breast w/device 1st lesion stereotactic guid Stereotactic localization guidance for breast biopsy [facility] Start: 01-21-2017 End: 01-21-2017 Us exam, breast(s) US Breast(s) [facility] Patient referral [facility] Work Phone: XR Pelvis and Hip Views [facility] Work Phone: Immunizations Immunization Date Immunization Notes Care Provider Lynne thomas 06-11-2013 Influenza virus vaccine DO Gilles Hyman Work Phone: [facility] Payers Date Payer Category Payer Self-pay [id number] 2013 Unknown [employer] [id number] 2013 Unknown [id number] Unknown [id number] Unknown [id number] Unknown [id number] Unknown [id number] Unknown [id number] Social History Date Type Detail Facility Start: 12-31-2021 End: 12-31-2022 Tobacco smoking status NHIS Unknown if ever smoked [facility] Start: 06-10-2013 Occasional [facility] Start: 06-10-2013 None [facility] Start: 06-10-2013 Spouse/ Signif icant Other [facility] Start: 1965 Sex Assigned At Female [facility] Medical Equipment Procedure Code Equipment Code Equipment Original Text Equipment Identifier Dates Total cholecystectomy with exploration of common bile duct CLIP,AGNIESZKAEUSEBIA KRISTIN ANGELICA FDA Start: 06-25-2020 Total cholecystectomy with exploration of common bile duct CLIP,AGNIESZKAEUSEBIA KRISTIN ANGELICA FDA Start: 06-25-2020 Total cholecystectomy with exploration of common bile duct CLIP,AGNIESZKAEUSEBIA KRISTIN ANGELICA FDA Start: 06-25-2020 Total cholecystectomy with exploration of common bile duct CLIP,AGNIESZKAEUSEBIA KRISTIN ANGELICA FDA Start: 06-25-2020 Total cholecystectomy with exploration of common bile duct CLIP,AGNIESZKAEUSEBIA KRISTIN ANGELICA FDA Start: 06-25-2020 Total cholecystectomy with exploration of common bile duct CLIP,HEMJULIOEUSEBIA KRISTIN ANGELICA FDA Start: 06-25-2020 Total cholecystectomy with exploration of common bile duct CLIP,HEMJULIOEUSEBIA DOMINGUEZ FDA Start: 06-25-2020 Total cholecystectomy with exploration of common bile duct CLIP,HEMJULIOEUSEBIA DOMINGUEZ FDA Start: 06-25-2020 Total cholecystectomy with exploration of common bile duct CLIP,AGNIESZKAEUSEBIA KRISTIN ANGELICA FDA Start: 06-25-2020 Total cholecystectomy with exploration of common bile duct CLIP,ANTHONY YUSUFEUSEBIA FDA Start: 06-25-2020 Total cholecystectomy with exploration of common bile duct CLIP,AGNIESZKAEUSEBIA KRISTIN ANGELICA FDA Start: 06-25-2020 Total cholecystectomy with exploration of common bile duct CLIP,ANTHONY FOSTER ANGELICA FDA Start: 06-25-2020 Evaluation note Note Date & Type Note Facility Evaluation note Diagnosis Onset Date Greater trochanteric bursitis of left hip acute Greater trochanteric bursitis of right hip acute Left hip pain acute Right hip pain acute [facility] Work Phone: Evaluation note Note Date & Type Note Facility Evaluation note Diagnosis Onset Date Greater trochanteric bursitis of left hip acute Greater trochanteric bursitis of right hip acute Left hip pain acute Right hip pain acute Postmenopausal bleeding acut e [facility] Work Phone: Evaluation note Note Date & Type Note Facility Evaluation note Diagnosis Onset Date Strain of left knee acute Greater trochanteric bursitis of left hip acute Greater trochanteric bursitis of right hip acute Strain of left knee acute Osteoarthritis of left knee acute Strain of left knee acute [facility] Work Phone: Evaluation note Note Date & Type Note Facility Evaluation note No assessment information availa ble [facility] Work Phone: Evaluation note Note Date & Type Note Facility Evaluation note Diagnosis Onset Date Obesity acute Osteoarthritis of left knee acute Pes anserine bursitis acute Synovial cyst of popliteal s pace [Nichole], left knee acute [facility] Work Phone: Summary Purpose Family History No Family History Records Found Relationship Condition Age at Onset Recorded Date/T zafar mother Arthritis Unknown Diabetes mellitus Unknown Cardiac disease Unknown Hypertension Unknown Kidney disorder Unknown Cerebrovascular accident (CVA) Unknown Disorder of thyroid Unknown Malignant neoplasm Unknown father Arthritis Unknown brother Arthritis Unknown sister Arthritis Unknown Advance Directives No Advanced Directives Records Found Advance Directive Response Recorded Date/ Time Advance Directives No June 10 6:18pm Living Will No June 22, 2020 8:05am Power of Industrial [employer] 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 RX HERE Reason for Visit Strain of left knee Greater trochanteric bursitis of left hip Greater trochanteric bursitis of right hip Strain of left knee Osteoarthritis of left knee Strain of left knee Chief Complaint SCREENING LEFT KNEE Reason for Visit Obesity Osteoarthritis of left knee Pes anserine bursitis Synovial cyst of popliteal space [Nichole], left knee Additional Source Comments INFORMATION SOURCE (unrecogn ized section and content) DATE CREATED AUTHOR 05/26/2018 [place] DATE CREATED AUTHOR AUTHOR'S ORGANIZ ATION 10/24/2018 [facility] DATE CREATED AUTHOR AUTHOR'S ORGANIZ ATION 02/23/2019 [facility] DATE CREATED AUTHOR AUTHOR'S ORGANIZ ATION 05/07/2024 [facility] Goals (unrecognized section and content) Goals may be documented in a n alternate sectionGoals may be documented in an alternate sectionGoals may be documented in an alternate sectionGoals may be documented in an alternate sectionGoals may be documented in an alternate sectionGoals may be documented in an alternate section Care Teams (unrecognized sec tion and content) Team Status: Active Member Role Status Dates [facility] Family Provider Active Kimberly Hyman , DO Primary Care Provider Active Team Status: Inactive Member Role Status Dates Kimberly Hyman , DO Primary Care Provider, Referring Provider Active Dioni Tiwari MD Attending Provider Active Team Status: Inactive Member Role Status Dates Kimberly Hyman , DO Primary Care Provider Active Dr. Joel Ku MD Attending Provider Active Team Status: Active Member Role Status Dates Kimberly Hyman , DO Primary Care Provider Active Dioni Tiwari MD Attending Provider, Referring Prov ider Active Team Status: Inactive Member Role Status Dates Kimberly Hyman , DO Primary Care Provider Active Dioni Tiwari MD Attending Provider, Referring Prov ider Active Team Status: Inactive Member Role Status Dates Kimberly Hyman , DO Primary Care Provider, Attending Provider Active Team Status: Inactive Member Role Status Dates Kimberly Hyman , DO Primary Care Provider, Referring Provider Active Dr. Burak Wilcox , DO Attending Provider Active Team Status: Inactive Member Role Status Dates Kimberly Hyman , DO Primary Care Provi gómez, Attending Provider, Referring Provider Active FOR RECORDS PERTAINING TO PATIENTS WHO ARE OR HAVE BEEN ENROLLED IN A CHEMICAL DEPENDENCY/SUBSTANCEABUSE PROGRAM, SOME INFORMATION MAY BE OMITTED. This clinical summary was aggregated from multiple sources. Caution should be exercised in using it in the provision of clinical care. This summary normalizes information from multiple sources, and as a consequence, information in this document may materially change the coding, format and clinical context of patient data. In addition, data may be omitted in some cases. CLINICAL DECISIONS SHOULD BE BASED ON THE PRIMARY CLINICAL RECORDS. [employer] provides no warranty or guarantee of the accuracy or completeness of information in this document.
== END | disposition home or self-care (01) ==
LOC: MTRAD 12:51
PROVIDERS: PCP Family Medicine; Referring Provider Family Medicine; Visit Provider Family Medicine
DX: M54.40 Lumbago with sciatica, unspecified side (principal)
CPT/HCPCS: 72110

== ENCOUNTER → 2025-02-16 | Outpatient (CLI) | payer MEDICAID, SELFPAY ==
--- NOTE | 2025-02-16 15:08 | BI_ITS ---
EXAM: SCRN MAMM (CAD)W/GIANCARLO BILAT DATE: 02/16/2025 CLINICAL HISTORY: F, Age 59 y/o , SCREENING Aunts with breast cancer. Prior left breast biopsy. TECHNIQUE: Procedure Code: [id number] Modality: MG Procedure: SCRN MAMM (CAD)W/GIANCARLO BILAT COMPARISON: Prior exam(s) dated January 22, 2024.. FINDINGS: TISSUE DENSITY: The breasts are heterogeneously dense, which may obscure small masses. Bilateral Breast Mammographic Findings: No significant masses, calcifications or other abnormalities are identified. Stable 1.3 cm well-defined nodule with partial calcification in the upper lateral aspect of the left breast. A tissue clip marker is seen within it. This was determined to be a fibroadenoma. Stable bilateral fat containing axillary lymph nodes. No suspicious masses, areas of developing architectural distortion, or suspicious calcifications. There has been no significant interval change. BI/SCRN MAMM (CAD)W/GIANCARLO BILAT IMPRESSION: Stable bilateral screening mammogram. OVERALL FINAL ASSESSMENT BI-RADS 2: BENIGN RECOMMENDATION: Routine annual follow-up in 1 Year Additional Recommendation none A letter with findings and recommendations will be mailed to the patient. Reading Location: [place] [address]
== END | disposition home or self-care (01) ==
LOC: OPBI 15:07
PROVIDERS: PCP Family Medicine; Referring Provider Family Medicine; Visit Provider Family Medicine
DX: Z12.31 Encounter for screening mammogram for malignant neoplasm of breast (principal); Z80.3 Family history of malignant neoplasm of breast
CPT/HCPCS: 77063; 77067

== ENCOUNTER 2025-02-22 13:30 | Outpatient (RCR) | payer MEDICAID, SELFPAY ==
--- NOTE | 2025-01-20 16:04 | HP.PTEVAL_ITS ---
Patient's Visit Information Visit Information Visit Information: JOSUE WEINSTEIN is a 59 year old F referred to Physical Therapy by Seema Rider MD with a diagnosis of ANTEROLISTHESIS L4-5. Date of Evaluation: 01/20/25 Physical Therapist: Papito Sams PT, Cert MDT, OCS Visit Plan Frequency: 2x /Week Duration: 4 Weeks Plan: PT INTERVENTIONS DLS ,POSTURAL EX'S ,LE FLEXABILITY ,BLE STRENGTHENING ,ACTIVITY MODIFICATION AND MODALTIES Subjective Subjective: This 59 y/o female presents to physical therapy with lumbar pain and radicular symptoms in legs left > right. Patient has had lumbar radiculopathy for ~ 1 month . Patient seen DR recommended PT and medication muscle relaxer ,melocaim . Patient had x-rays showed Anterolisthesis L4 on L5 by 8 mm from facet joint arthropathy. No spondylolysis.Multilevel degenerate changes predominantly at L4-L5 where there is disc space narrowing, facet joint arthropathy.Location of symptoms symmetrical to lateral hips , Aggravating standing/walking ,bending lifting . Alleviating factors sitting. Coughing/sneezing. C/O sharp pain and paresthesia in legs left > right. Patient pain affects sleeping. Patient condition affects QOL and function. SOCIAL: VOCATION: HOME Pain Bilateral Back: Pain Intensity (Out of 10): 6 Pain Intensity Range: 9 and 10 Bilateral Lower Extremity: Pain Intensity (Out of 10): 6 Pain Intensity Range: 10 Objective Objective: POSTURE: mild forward posture ,hips/knees slightly flexed GAIT: ambulates with reciprocal pattern slow sapna slightly antalgic SYMMETRICAL : align FLEXABILITY: hamstrings mod tight NEURO: c/o paresthesia/tingling legs ,reflexes L3-4,L4-5 ,L5- S1 1/3 MMT: ( peak force) quads right 22.7 ,hip flexion 16.9 ,hamstrings right 19.9 ,left 17,1 ,hip flexion right 22.9 .,left 19.8 LUMBAR ROM: flexion 50% loss ,extension 75% loss ,side glides 50% loss Special Tests L/S Slump test left side: Negative L/S Slump test right side: Negative L/S Left Straight Leg Raise: Negative L/S Right Straight Leg Raise: Negative Lumbar Standing: Flexion - Mechanical Response: No effect Lumbar Standing: Flexion - Symptoms During Testing: Increases Lumbar Standing: Flexion - Symptoms After Testing: Worse Lumbar Standing: Extension - Mechanical Response: No effect Lumbar Standing: Extension - Symptoms During Testing: Increases Lumbar Standing: Extension - Symptoms After Testing: Worse Lumbar Standing: Right Side Glides - Mechanical Response: No effect Lumbar Standing: Right Side [place] - Symptoms During Testing: Increases Lumbar Standing: Right Side [place] - Symptoms After Testing: Worse Lumbar Standing: Left Side [place] - Mechanical Response: No effect Lumbar Standing: Left Side [place] - Symptoms During Testing: Increases Lumbar Standing: Left Side [place] - Symptoms After Testing: Worse Balance/Special Test Scores Oswestry Low Back Score: 30 Goals Goal 1:: Patient to be I with HEP for back Goal Time Frame: 4-6 Weeks Goal 2:: Patient to improve lumbar ROM by 25%v for function of recovery to put on shoes Goal Time Frame: 4-6 Weeks Goal 3:: Patient to improve peak force quads/hams/hip 5-10# to improve gait and function Goal Time Frame: 4-6 Weeks Goal 4:: Patient to back oswestry score by 5 points to improve QOL Goal Time Frame: 4-6 Weeks Goal 5:: Patient to demonstrate 50 % improvement with ADLS and housework tasks Goal Time Frame: 4-6 Weeks Rehabilitation Potential Physical Therapy Diagnosis: Patient has lumbar pain with radicular symptoms in legs with possible stenosis and disc involvement with pain with walking/standing ,bending and increases with positioning and motion testing thus benefit from skilled PT Rehabilitation Potential: Fair Anticipated Interventions Patient/Client Instruction: Educate patient on: Condition and Plan of Care For the Purpose of:: To decrease pain, To increase ROM, To increase oxygenation perfusion, To improve ability to perform ADL's, To increase tolerance to activity/condition/position, To improve performance and independence with ADL's, To decrease level of supervision to perform tasks, To improve gait and locomotor functions, To improve health of tissue, To decrease soft tissue restriction, To increase flexibility/ROM and To improve tolerance to ADL's Therapeutic Exercise to Include: Strength training, Postural training, Flexibilty training and Dynamic Lumbar Stabilization For the Purpose of:: To decrease pain, To increase ROM, To improve muscle performance and motor function, To improve ability to perform ADL's, To increase tolerance to activity/condition/position, To improve ability of physical actions for home/community/work/leisure, To improve gait and locomotor functions, To improve health of tissue, To decrease soft tissue restriction, To increase flexibility/ROM and To improve tolerance to ADL's TENS: Yes IF ES: Yes Cryotherapy (ice pack, ice massage): Yes Thermo therapy (hot pack): Yes Ultrasound (thermal/non thermal): Yes For the Purpose of:: To decrease pain, To increase ROM, To improve ability of physical actions for home/community/work/leisure, To improve health of tissue, To decrease soft tissue restriction and To improve tolerance to ADL's Text: Thank you for the opportunity to evaluate your patient. For Medicare and Medicare HMO plans, please review the plan of care and approve it. It will need to be FAXED BACK to us at [phone] for Medicare purposes. For Medicare only, by signing this I certify the plan of care. Please let me know if there are questions or concerns regarding this plan of care. Physician Signature: Date:
--- NOTE | 2025-02-22 13:50 | HP.PTDCSUM ---
Discharge Summary D/C summary: It has been my pleasure to treat JOSUE WEINSTEIN referred by Seema Rider MD, with the diagnosis of ANTEROLISTHESIS L4-5 for a total of 7 visit(s). Discharge Date: Please see the following information for a summary of their discharge status. Subjective Subjective: Doing better but cont to have Pain is constant Worse sitting/standing 1 mile Pain Bilateral Back: Pain Intensity (Out of 10): 8 Bilateral Lower Extremity: Pain Intensity (Out of 10): 8 Overall Improvement % Improvement: 30 Objective Objective/Function: POSTURE: mild forward posture ,hips/knees slightly flexed GAIT: ambulates with reciprocal pattern slow sapna slightly antalgic SYMMETRICAL : align FLEXABILITY: hamstrings mod tight NEURO: c/o paresthesia/tingling legs ,reflexes L3-4,L4-5 ,L5- S1 1/3 MMT: ( peak force) quads right 22.7 ,hip flexion 16.9 ,hamstrings right 19.9 ,left 17,1 ,hip flexion right 22.9 .,left 19.8 LUMBAR ROM: flexion 50% loss ,extension 75% loss ,side glides 50% loss Goals Goal 1:: Patient to be I with HEP for back Goal Progress: Progressing Goal 2:: Patient to improve lumbar ROM by 25%v for function of recovery to put on shoes Goal Progress: Progressing Goal 3:: Patient to improve peak force quads/hams/hip 5-10# to improve gait and function Goal Progress: Progressing Goal 4:: Patient to back oswestry score by 5 points to improve QOL Goal Progress: Progressing Goal 5:: Patient to demonstrate 50 % improvement with ADLS and housework tasks Goal Progress: Progressing Plan Plan: D/C TO HOME D/C Information d/c sentence: If there are questions or concerns regarding this patient's physical therapy, please feel free to call me at [phone]. Thank you for the referral of this patient. Sincerely, Papito Sams, PT, Cert MDT, OCS Balance/Gait/Functional tests Balance/Special Test Scores Oswestry Low Back Score: 30 Improvement % Improvement: 30
== END 2025-02-22 19:00 | disposition home or self-care (01) ==
LOC: PT 13:30
PROVIDERS: PCP Family Medicine; Referring Provider Family Medicine; Visit Provider Family Medicine
DX: M43.16 Spondylolisthesis, lumbar region (principal)
CPT/HCPCS: 97110; 97162; 97530